=== PATIENT | female | born 1955 | race Caucasian/White ===

== ENCOUNTER 2017-10-14 20:36 | Inpatient (IN) | payer MEDICARE, OTHER ==
[2017-10-14] MEDS ORDERED: ASPIRIN 81 MG PO STA (20:52)
[2017-10-14] MEDS ORDERED: NITROGLYCERIN OINT 1 INCH/GM PACKET TOPICAL STA (20:52)
--- NOTE | 2017-10-14 20:56 | ED ---
General Adult HPI - General Chief complaint: Chest Pain Stated complaint: Chest Pain Time Seen by Provider: 10/14/17 20:48 Source: patient, EMS, RN notes reviewed Mode of arrival: EMS Limitations: no limitations - History of Present Illness Initial comments: Patient is a pleasant 62-year-old female presenting to the emergency department with chest discomfort. Onset was 1-2 hours ago. Discomfort feels like pressure. Discomfort does radiate somewhat towards the back. Patient had similar symptoms a couple of days ago, otherwise no history of similar symptoms previously. No associated dyspnea or nausea or diaphoresis. Discomfort is mild at this point following medication by EMS. - Related Data Home Medications Medication Instructions Recorded Confirmed Cetirizine HCl [Zyrtec] 10 mg PO HS 12/16/13 10/14/17 Allergies Allergy/AdvReac Type Severity Reaction Status Date / Time Penicillins Allergy Anaphylaxis Verified 10/14/17 20:56 aspirin AdvReac Nausea & Verified 10/14/17 20:56 Vomiting bacitracin AdvReac blisters Verified 10/14/17 20:56 [From Neosporin ([id number])] bacitracin zinc AdvReac blisters Verified 10/14/17 20:56 [From Neosporin ([id number])] ketorolac tromethamine AdvReac Nausea & Verified 10/14/17 20:56 [From Toradol] Vomiting neomycin sulfate AdvReac blisters Verified 10/14/17 20:56 [From Neosporin ([id number])] polymyxin B AdvReac blisters Verified 10/14/17 20:56 [From Neosporin ([id number])] Sulfa (Sulfonamide AdvReac localized Verified 10/14/17 20:56 Antibiotics) eye swelling from drops tetanus immune globulin AdvReac localized Verified 10/14/17 20:56 swelling Review of Systems ROS Statement: Those systems with pertinent positive or pertinent negative responses have been documented in the HPI. ROS Other: All systems not noted in ROS Statement are negative. Constitutional: Denies: fever Eyes: Denies: eye pain ENT: Denies: ear pain Respiratory: Denies: cough, dyspnea Cardiovascular: Reports: chest pain Endocrine: Denies: fatigue Gastrointestinal: Denies: abdominal pain Genitourinary: Denies: dysuria Musculoskeletal: Denies: back pain Skin: Denies: rash Neurological: Denies: weakness Past Medical History Past Medical History: Eye Disorder, Hyperlipidemia, Hypertension, Osteoarthritis (OA), Thyroid Disorder Additional Past Medical History / Comment(s): disintegrating joint syndrome, cataracts,complex migraines, seasonal allergies History of Any Multi-Drug Resistant Organisms: None Reported Past Surgical History: Orthopedic Surgery Additional Past Surgical History / Comment(s): ectopic surg., carpal tunnel surg., bilateral knee surg., RT CATARACT REMOVED Past Anesthesia/Blood Transfusion Reactions: No Reported Reaction Past Psychological History: No Psychological Hx Reported Smoking Status: Current every day smoker Past Alcohol Use History: None Reported Past Drug Use History: None Reported - Past Family History Mother Family Medical History: Cancer General Exam Limitations: no limitations General appearance: alert, in no apparent distress Head exam: Present: atraumatic Eye exam: Present: normal appearance, PERRL ENT exam: Present: normal oropharynx Neck exam: Present: normal inspection Respiratory exam: Present: normal lung sounds bilaterally. Absent: chest wall tenderness Cardiovascular Exam: Present: regular rate, normal rhythm Expanded Peripheral pulses: 2+: Radial (R), Radial (L), Dorsalis Pedis (R), Dorsalis Pedis (L) GI/Abdominal exam: Present: soft. Absent: tenderness Extremities exam: Present: normal inspection. Absent: pedal edema, calf tenderness Back exam: Present: normal inspection. Absent: tenderness Neurological exam: Present: alert Psychiatric exam: Present: normal affect, normal mood Skin exam: Present: normal color Course Vital Signs 10/14/17 10/14/17 10/14/17 20:38 21:14 22:00 Temperature 97.8 F Pulse Rate 79 72 67 Respiratory 19 19 16 Rate Blood Pressure 173/79 150/68 155/72 O2 Sat by Pulse 97 97 100 Oximetry 10/14/17 22:32 Temperature Pulse Rate 76 Respiratory 16 Rate Blood Pressure 157/74 O2 Sat by Pulse 99 Oximetry EKG Findings - EKG Comments: EKG Findings:: Normal sinus rhythm 80. FL 170. QRS 98. QT 400. QTc 461. Normal axis. Normal QRS. No acute ST change. Medical Decision Making - Medical Decision Making Patient reevaluated and resting comfortably in bed. Patient is symptom-free at this time. Concern exists regarding elevated troponin. Patient updated on results and plan. Dr. Mcgregor has been paged for admission for Dr. camara. Cardiology will be consult. - Lab Data Result diagrams: 10/14/17 20:44 10/14/17 20:44 Lab Results 10/14/17 10/14/17 10/14/17 Range/Units 20:44 20:44 20:44 WBC 10.3 (3.8-10.6) k/uL RBC 4.58 (3.80-5.40) m/uL Hgb 13.4 (11.4-16.0) gm/dL Hct 40.2 (34.0-46.0) % MCV 87.7 (80.0-100.0) fL MCH 29.2 (25.0-35.0) pg MCHC 33.3 (31.0-37.0) g/dL RDW 13.2 (11.5-15.5) % Plt Count 306 (150-450) k/uL Neutrophils % 55 % Lymphocytes % 36 % Monocytes % 4 % Eosinophils % 3 % Basophils % 1 % Neutrophils # 5.7 (1.3-7.7) k/uL Lymphocytes # 3.8 (1.0-4.8) k/uL Monocytes # 0.4 (0-1.0) k/uL Eosinophils # 0.3 (0-0.7) k/uL Basophils # 0.1 (0-0.2) k/uL PT 9.6 (9.0-12.0) sec INR 1.0 (<1.2) APTT 21.7 L (22.0-30.0) sec D-Dimer 0.50 (<0.60) mg/L FEU Sodium (137-145) mmol/L Potassium (3.5-5.1) mmol/L Chloride (98-107) mmol/L Carbon Dioxide (22-30) mmol/L Anion Gap mmol/L BUN (7-17) mg/dL Creatinine (0.52-1.04) mg/dL Est GFR (CKD-EPI)AfAm (>60 ml/min/1.73 sqM) Est GFR (CKD-EPI)NonAf (>60 ml/min/1.73 sqM) Glucose (74-99) mg/dL Calcium (8.4-10.2) mg/dL Magnesium (1.6-2.3) mg/dL Total Bilirubin (0.2-1.3) mg/dL AST (14-36) U/L ALT (9-52) U/L Alkaline Phosphatase (38-126) U/L Total Creatine Kinase 155 H (30-135) U/L CK-MB (CK-2) 0.8 (0.0-2.4) ng/mL CK-MB (CK-2) Rel Index 0.5 Troponin I 0.068 H* (0.000-0.034) ng/mL Total Protein (6.3-8.2) g/dL Albumin (3.5-5.0) g/dL 10/14/17 Range/Units 20:44 WBC (3.8-10.6) k/uL RBC (3.80-5.40) m/uL Hgb (11.4-16.0) gm/dL Hct (34.0-46.0) % MCV (80.0-100.0) fL MCH (25.0-35.0) pg MCHC (31.0-37.0) g/dL RDW (11.5-15.5) % Plt Count (150-450) k/uL Neutrophils % % Lymphocytes % % Monocytes % % Eosinophils % % Basophils % % Neutrophils # (1.3-7.7) k/uL Lymphocytes # (1.0-4.8) k/uL Monocytes # (0-1.0) k/uL Eosinophils # (0-0.7) k/uL Basophils # (0-0.2) k/uL PT (9.0-12.0) sec INR (<1.2) APTT (22.0-30.0) sec D-Dimer (<0.60) mg/L FEU Sodium 143 (137-145) mmol/L Potassium 3.8 (3.5-5.1) mmol/L Chloride 105 (98-107) mmol/L Carbon Dioxide 25 (22-30) mmol/L Anion Gap 13 mmol/L BUN 18 H (7-17) mg/dL Creatinine 0.90 (0.52-1.04) mg/dL Est GFR (CKD-EPI)AfAm 80 (>60 ml/min/1.73 sqM) Est GFR (CKD-EPI)NonAf 70 (>60 ml/min/1.73 sqM) Glucose 121 H (74-99) mg/dL Calcium 10.0 (8.4-10.2) mg/dL Magnesium 2.1 (1.6-2.3) mg/dL Total Bilirubin 0.3 (0.2-1.3) mg/dL AST 19 (14-36) U/L ALT 17 (9-52) U/L Alkaline Phosphatase 91 (38-126) U/L Total Creatine Kinase (30-135) U/L CK-MB (CK-2) (0.0-2.4) ng/mL CK-MB (CK-2) Rel Index Troponin I (0.000-0.034) ng/mL Total Protein 6.8 (6.3-8.2) g/dL Albumin 4.3 (3.5-5.0) g/dL - Radiology Data Radiology results: image reviewed (Chest x-ray shows no acute process.) Critical Care Time Critical Care Time: Yes Total Critical Care Time: 32 Disposition Clinical Impression: Acute coronary syndrome Disposition: ADMITTED IP TO THIS HOSP Is patient prescribed a controlled substance at d/c from ED?: No Referrals: Kinza Bernal MD [Primary Care Provider] - 1-2 days Decision Time: 23:18
[2017-10-14 21:07] LABS: Basophils # (A) 0.1 k/uL (0-0.2); Basophils % (A) 1 %; Eosinophils # (A) 0.3 k/uL (0-0.7); Eosinophils % (A) 3 %; HCT 40.2 % (34.0-46.0); HGB 13.4 gm/dL (11.4-16.0); Lymphocytes # (A) 3.8 k/uL (1.0-4.8); Lymphocytes % (A) 36 %; MCH 29.2 pg (25.0-35.0); MCHC 33.3 g/dL (31.0-37.0); MCV 87.7 fL (80.0-100.0); Mean Platelet Volume 6.5; Monocytes # (A) 0.4 k/uL (0-1.0); Monocytes % (A) 4 %; Neutrophils # (A) 5.7 k/uL (1.3-7.7); Neutrophils % (A) 55 %; Platelet Count 306 k/uL (150-450); RBC 4.58 m/uL (3.80-5.40); RDW 13.2 % (11.5-15.5); WBC 10.3 k/uL (3.8-10.6)
[2017-10-14 21:12] LABS: Albumin 4.3 g/dL (3.5-5.0); Magnesium 2.1 mg/dL (1.6-2.3); Potassium 3.8 mmol/L (3.5-5.1); Total Bilirubin 0.3 mg/dL (0.2-1.3); Total Protein 6.8 g/dL (6.3-8.2)
--- NOTE | 2017-10-14 21:15 | XR ---
EXAMINATION TYPE: XR chest 2V DATE OF EXAM: 10/14/2017 COMPARISON: NONE HISTORY: Chest pain TECHNIQUE: Frontal and lateral views of the chest are obtained. FINDINGS: Heart and mediastinum are normal. Lungs are clear. Diaphragm is normal. Bony thorax is int act. There are chest leads. IMPRESSION: Normal chest.
[2017-10-14 21:22] LABS: D-Dimer 0.5 mg/L FEU (<0.60); Prothrombin Time 9.6 sec (9.0-12.0)
[2017-10-14 21:26] LABS: Partial Thromboplastin Time 21.7 sec (22.0-30.0)
[2017-10-14 21:27] LABS: Creatine Kinase MB 0.8 ng/mL (0.0-2.4)
[2017-10-14 21:33] LABS: Troponin I 0.068 ng/mL (0.000-0.034)
[2017-10-14] MEDS ORDERED: HEPARIN SODIUM,PORCINE 5,000 UNIT/ML 1 ML VIAL IV ONE (23:19)
[2017-10-14] MEDS ORDERED: HEPARIN SODIUM,PORCINE 5,000 UNIT/ML 1 ML VIAL IV PRN (23:19)
[2017-10-14] MEDS ORDERED: NITROGLYCERIN SL TABS 0.4 MG TAB SUBLINGUAL PRN (23:19)
[2017-10-14] MEDS ORDERED: HEPARIN SOD,PORK IN 0.45% NACL 25,000 UNIT in 0.45% NACL 1 500ML.BAG IV SCH (23:30)
[2017-10-15 02:35] LABS: Mean Platelet Volume 6.8; Platelet Count 252 k/uL (150-450)
[2017-10-15 02:55] LABS: Cholesterol 230 mg/dL (<200); HDL Cholesterol 53 mg/dL (40-60); LDL Cholesterol,Calculated 143 mg/dL (0-99); Triglycerides 169 mg/dL (<150)
[2017-10-15 03:19] LABS: Troponin I 0.102 ng/mL (0.000-0.034)
[2017-10-15] MEDS: NITROGLYCERIN OINT 1 INCH/GM PACKET TOPICAL SCH ×3 (05:05→13:38)
[2017-10-15 06:41] LABS: Creatine Kinase MB 0.9 ng/mL (0.0-2.4)
[2017-10-15 06:46] LABS: Troponin I 0.13 ng/mL (0.000-0.034)
--- NOTE | 2017-10-15 08:53 | P.CRDCN ---
History of Present Illness Consult date: 10/15/17 Requesting physician: Jannet Mcgregor Consult reason: non-Q-wave ME Chief complaint: Chest pain History of present illness: This is a 62-year-old female with history of hyperlipidemia, untreated , hypertension, was on treatment for this prior as well, nicotine dependence, nondiabetic, no family history of premature coronary artery disease, history of ALLERGIES and arthritis. She presents to the hospital with symptoms of chest pressure and heaviness. According to the patient, the night before last she was woke up from sleep with symptoms of chest pressure and heaviness which she described as severe in nature, she thought it may have been something she ate, symptoms subsided. Again the following evening patient developed similar symptoms, she denies any associated dyspnea, no diaphoresis or nausea. This reason she came to the emergency room for further evaluation. Her initial EKG on presentation here showed a normal sinus rhythm with no acute changes. Subsequent EKG shows normal sinus rhythm with ST-T wave changes noted in anterior leads. Blood pressure 130/60 with a heart rate in the 70s, temperature 97.1 she's 96% on room air. White blood cell count 10.3, hemoglobin 13.4, platelet count 252. D-dimer 0.5. Sodium 143, potassium 3.8, BUN 18, creatinine 0.9. Troponin 0.06, 0.10, 0.13. Cholesterol 230, triglycerides 169, LDL 143, HDL 53. At the time of my examination, patient is currently chest pain-free Past Medical History Past Medical History: Eye Disorder, Hyperlipidemia, Hypertension, Osteoarthritis (OA), Thyroid Disorder Additional Past Medical History / Comment(s): disintegrating joint syndrome, cataracts,complex migraines, seasonal allergies History of Any Multi-Drug Resistant Organisms: None Reported Past Surgical History: Orthopedic Surgery Additional Past Surgical History / Comment(s): ectopic surg., carpal tunnel surg., bilateral knee surg., BILATERAL CATARACT REMOVED Past Anesthesia/Blood Transfusion Reactions: No Reported Reaction Past Psychological History: No Psychological Hx Reported Smoking Status: Current every day smoker Past Alcohol Use History: None Reported Past Drug Use History: None Reported - Past Family History Mother Family Medical History: Cancer Medications and Allergies Home Medications Medication Instructions Recorded Confirmed Type Cetirizine HCl [Zyrtec] 10 mg PO HS 06/26/14 04/24/18 History Allergies Allergy/AdvReac Type Severity Reaction Status Date / Time Penicillins Allergy Anaphylaxis Verified 10/14/17 20:56 aspirin AdvReac Nausea & Verified 10/14/17 20:56 Vomiting bacitracin AdvReac blisters Verified 10/14/17 20:56 [From Neosporin ([id number])] bacitracin zinc AdvReac blisters Verified 10/14/17 20:56 [From Neosporin ([id number])] ketorolac tromethamine AdvReac Nausea & Verified 10/14/17 20:56 [From Toradol] Vomiting neomycin sulfate AdvReac blisters Verified 10/14/17 20:56 [From Neosporin ([id number]-jsb-[id number])] polymyxin B AdvReac blisters Verified 10/14/17 20:56 [From Neosporin ([id number]-[id number])] Sulfa (Sulfonamide AdvReac localized Verified 10/14/17 20:56 Antibiotics) eye swelling from drops tetanus immune globulin AdvReac localized Verified 10/14/17 20:56 swelling Physical Exam Vitals: Vital Signs Temp Pulse Pulse Resp BP BP Pulse Ox 10/15/17 04:00 70 16 131/62 96 10/15/17 01:00 70 16 10/15/17 00:20 97.1 F L 66 16 139/63 98 10/14/17 23:00 66 145/66 99 10/14/17 22:32 76 16 157/74 99 10/14/17 22:00 67 16 155/72 100 10/14/17 21:14 72 19 150/68 97 10/14/17 20:38 97.8 F 79 19 173/79 97 Intake and Output 10/14/17 10/15/17 10/15/17 22:59 06:59 14:59 Intake Total 136.833 0 Balance 136.833 0 Intake: Intake, IV Titration 136.833 Amount Heparin Sod,Pork in 0.45% 136.833 NaCl 25,000 unit In 0.45 % NaCl 1 500ml.bag @ 12 UNITS/KG/HR 20.68 mls/hr IV .Q24H YESSENIA Rx#: [id number] Oral 0 Other: Voiding Method Toilet # Voids 1 Weight 86.183 kg 90.1 kg PHYSICAL EXAMINATION: HEENT: [Head is atraumatic, normocephalic. Pupils equal, round. Neck is supple. There is no elevated jugular venous pressure.] HEART EXAMINATION: [Heart S1, S2 normal. No murmur or gallop heard.] CHEST EXAMINATION:[ Lungs are clear to auscultation and precussion. No chest wall tenderness is noted on palpation or with deep breathing.] ABDOMEN: [ Soft, nontender. Bowel sounds are heard. No organomegaly noted]. EXTREMITIES:[ 2+ peripheral pulses with no evidence of peripheral edema and no calf tenderness noted]. NEUROLOGIC [patient is awake, alert and oriented -3.] . Results 10/15/17 02:21 10/14/17 20:44 Cardiac Enzymes 10/14/17 10/14/17 10/15/17 Range/Units 20:44 20:44 02:21 AST 19 (14-36) U/L CK-MB (CK-2) 0.8 1.0 (0.0-2.4) ng/mL Troponin I 0.068 H* 0.102 H* (0.000-0.034) ng/mL 10/15/17 Range/Units 05:38 AST (14-36) U/L CK-MB (CK-2) 0.9 (0.0-2.4) ng/mL Troponin I 0.130 H* (0.000-0.034) ng/mL Coagulation 10/14/17 10/15/17 Range/Units 20:44 05:38 PT 9.6 (9.0-12.0) sec APTT 21.7 L 35.0 H (22.0-30.0) sec Lipids 10/15/17 Range/Units 02:21 Triglycerides 169 H (<150) mg/dL Cholesterol 230 H (<200) mg/dL HDL Cholesterol 53 (40-60) mg/dL CBC 10/14/17 10/15/17 Range/Units 20:44 02:21 WBC 10.3 (3.8-10.6) k/uL RBC 4.58 (3.80-5.40) m/uL Hgb 13.4 (11.4-16.0) gm/dL Hct 40.2 (34.0-46.0) % Plt Count 306 252 (150-450) k/uL Comprehensive Metabolic Panel 10/14/17 Range/Units 20:44 Sodium 143 (137-145) mmol/L Potassium 3.8 (3.5-5.1) mmol/L Chloride 105 (98-107) mmol/L Carbon Dioxide 25 (22-30) mmol/L BUN 18 H (7-17) mg/dL Creatinine 0.90 (0.52-1.04) mg/dL Glucose 121 H (74-99) mg/dL Calcium 10.0 (8.4-10.2) mg/dL AST 19 (14-36) U/L ALT 17 (9-52) U/L Alkaline Phosphatase 91 (38-126) U/L Total Protein 6.8 (6.3-8.2) g/dL Albumin 4.3 (3.5-5.0) g/dL Current Medications Generic Name Dose Route Start Last Admin Trade Name Freq PRN Reason Stop Dose Admin Aspirin 325 mg 10/15/17 09:00 10/15/17 08:32 Aspirin PO 325 mg DAILY YESSENIA Administration Heparin Sodium (Porcine) 0 unit 10/14/17 23:19 10/15/17 06:23 Heparin IV 4,000 unit Q6HR PRN Administration Low PTT Protocol Heparin Sodium/Sodium Chloride 500 mls @ 20.68 mls/hr 10/14/17 23:30 06:23 25,000 unit/ Sodium Chloride IV 15 units/kg/hr .Q24H YESSENIA 25.85 mls/hr Protocol Titration 12 UNITS/KG/HR Nitroglycerin 1 inch 10/15/17 00:00 10/15/17 05:24 Nitro-Bid Oint TOPICAL 1 inch Q6HR YESSENIA Administration Nitroglycerin 0.4 mg 10/14/17 23:19 Nitrostat SUBLINGUAL Q5M PRN Chest Pain Sodium Chloride 10 ml 10/15/17 09:00 10/15/17 08:32 Saline Flush IV 10 ml BID YESSENIA Administration Intake and Output 10/14/17 10/15/17 10/15/17 22:59 06:59 14:59 Intake Total 136.833 0 Balance 136.833 0 Intake: Intake, IV Titration 136.833 Amount Heparin Sod,Pork in 0.45% 136.833 NaCl 25,000 unit In 0.45 % NaCl 1 500ml.bag @ 12 UNITS/KG/HR 20.68 mls/hr IV .Q24H YESSENIA Rx#: [id number] Oral 0 Other: Voiding Method Toilet # Voids 1 Weight 86.183 kg 90.1 kg 10/15/17 02:21 10/14/17 20:44 EKG Interpretations (text) EKG shows a normal sinus rhythm with ST-T wave changes noted in the anterior leads. Assessment and Plan Plan: Assessment and plan #1 chest pressure and heaviness with abnormality in troponin and EKG noted, consistent with acute coronary syndrome. #2 hypertension history, untreated #3 hyperlipidemia, untreated #4 nicotine dependence # 5 seasonal ALLERGIES #6 arthritis Plan We will obtain a stat echocardiogram with Doppler study. We will also continue the patient on IV heparin along with aspirin. We will give the patient 80 mg of Lipitor now and daily. Initiate a small dose of beta laura. Patient has been advised to undergo cardiac catheterization, the risks and the benefits were explained to the patient in detail and she is willing to proceed. Further recommendations will be based on these findings and patient's clinical course. DNP note has been reviewed, I agree with a documented findings and plan of care. Patient was seen and examined.
[2017-10-15] MEDS ORDERED: ASPIRIN 325 MG TAB PO SCH (09:00)
[2017-10-15] MEDS ORDERED: ATORVASTATIN 80 MG TAB PO SCH (09:00)
[2017-10-15] MEDS ORDERED: NITROGLYCERIN SL TABS 0.4 MG TAB SUBLINGUAL PRN ×2 (09:51→16:35)
[2017-10-15] MEDS ORDERED: ASPIRIN 325 MG TAB PO STA (09:51)
[2017-10-15] MEDS ORDERED: SODIUM CHLORIDE 0.9% 1,000 ML in EMPTY BAG 1 BAG IV ONE (09:51)
[2017-10-15] MEDS ORDERED: ALPRAZolam 0.25 MG TAB PO PRN (09:51)
[2017-10-15] MEDS ORDERED: ALPRAZolam 0.5 MG TAB PO PRN (09:51)
[2017-10-15] MEDS ORDERED: ATORVASTATIN 80 MG TAB PO STA (09:51)
--- NOTE | 2017-10-15 09:56 | P.PN ---
Progress Note - Text this is an addendum to the dictated cardiology consultation. The patient presents with symptoms of chest discomfort, left-sided associated with dyspnea. She had 2 episodes 1 yesterday and 1 on the day before. She is not very active physically because of arthritic pain. She has not seen a physician for over 2 years. She has no history of documented coronary artery disease. She has no documented history of diabetes or hyperlipidemia, there is a question of hypertension and she smokes on a daily basis. Her troponin are mildly elevated. Her lung examination reveals mild decrease in the breath sounds but no wheezes, there is no peripheral edema and she is in sinus mechanism. The patient presents with consistent with non-STEMI. I will obtain an echocardiogram with Doppler, add a statin and beta laura. I have recommended to proceed with cardiac catheterization to further assess her status and guide her treatment. The risks and the complications were discussed with the patient and she is in full understanding and agreement. Thank you for this consult we will follow with you.
--- NOTE | 2017-10-15 10:46 | ECHOF ---
Referral Reason:nstemi MEASUREMENTS -------- HEIGHT: 170.2 cm WEIGHT: 89.8 kg BP: IVSd: 1.3 cm (0.6 - 1.1) LVIDd: 4.5 cm (3.9 - 5.3) LVPWd: 1.3 cm (0.6 - 1.1) IVSs: 1.8 cm LVIDs: 2.7 cm LVPWs: 2.0 cm LA Diam: 3.6 cm (2.7 - 3.8) LAESV Index (A-L): 31.85 ml/m Ao Diam: 2.8 cm (2.0 - 3.7) LA Diam: 4.0 cm (2.7 - 3.8) MV EXCURSION: 16.659 mm (> 18.000) MV EF SLOPE: 77 mm/s (70 - 150) EPSS: 0.6 cm MV E Stewart: 0.64 m/s MV DecT: 259 ms MV A Stewart: 0.82 m/s MV E/A Ratio: 0.78 RAP: 5.00 mmHg RVSP: 15.17 mmHg FINDINGS -------- Sinus rhythm. This was a technically adequate study. The left ventricular size is normal. There is mild concentric left ventricular hypertrophy. Overa ll left ventricular systolic function is low-normal with, an EF between 50 - 55 %. The right ventricle is normal in size. The left atrial size is normal. The right atrial size is normal. The aortic valve is trileaflet, and appears structurally normal. No aortic stenosis or regurgitation. Mild mitral annular calcification present. Mild mitral regurgitation is present. Mild tricuspid regurgitation present. There is no evidence of pulmonary hypertension. The right v entricular systolic pressure, as measured by Doppler, is 15.17mmHg. There is no pulmonic regurgitation present. The aortic root size is normal. There is no pericardial effusion. CONCLUSIONS -------- 1. The left ventricular size is normal. 2. There is mild concentric left ventricular hypertrophy. 3. Overall left ventricular systolic function is low-normal with, an EF between 50 - 55 %. 4. The aortic valve is trileaflet, and appears structurally normal. No aortic stenosis or regurgitati on. 5. Mild mitral annular calcification present. 6. Mild mitral regurgitation is present. 7. Mild tricuspid regurgitation present. 8. There is no evidence of pulmonary hypertension. 9. The right ventricular systolic pressure, as measured by Doppler, is 15.17mmHg. 10. There is no pulmonic regurgitation present. 11. The aortic root size is normal. 12. There is no pericardial effusion. CORRECTIONAL TREATMENT SPECIALIST: Patricia Valera RDCS
[2017-10-15] MEDS ORDERED: ONDANSETRON 4 MG/2 ML VIAL IVP PRN (11:27)
[2017-10-15] MEDS: METOPROLOL TARTRATE 25 MG TAB PO SCH ×2 (12:06→20:57)
--- NOTE | 2017-10-15 13:16 | P.HPIM ---
History of Present Illness H&P Date: 10/15/17 Chief Complaint: Chest pain This is a 62-year-old female with past medical history significant for untreated hypertension who presented to the emergency room with chest pain. Patient said that her symptoms started and describes it as pressure in the middle of her chest. She said her pain was severe and rated 10 out of 10 in severity. There was no radiation. Patient denies shortness of breath, diaphoresis, or nausea. She presented to the emergency room for further evaluation. Initial 12-lead EKG was normal but subsequent EKGs showed nonspecific ST segment changes. No acute ischemic changes noted. Troponin peaked to 0.13. Patient is currently admitted to the hospital. She was seen by cardiology. She is on IV heparin and was started on optimal medical management. Review of Systems Review of system: 14 points review of systems were obtained and were negative except to what were mentioned in the HPI. Past Medical History Past Medical History: Eye Disorder, Hyperlipidemia, Hypertension, Osteoarthritis (OA), Thyroid Disorder Additional Past Medical History / Comment(s): disintegrating joint syndrome, cataracts,complex migraines, seasonal allergies History of Any Multi-Drug Resistant Organisms: None Reported Past Surgical History: Orthopedic Surgery Additional Past Surgical History / Comment(s): ectopic surg., carpal tunnel surg., bilateral knee surg., BILATERAL CATARACT REMOVED Past Anesthesia/Blood Transfusion Reactions: No Reported Reaction Past Psychological History: No Psychological Hx Reported Smoking Status: Current every day smoker Past Alcohol Use History: None Reported Past Drug Use History: None Reported - Past Family History Mother Family Medical History: Cancer Medications and Allergies Home Medications Medication Instructions Recorded Confirmed Type Cetirizine HCl [Zyrtec] 10 mg PO HS 12/16/13 10/14/17 History Allergies Allergy/AdvReac Type Severity Reaction Status Date / Time Penicillins Allergy Anaphylaxis Verified 10/14/17 20:56 aspirin AdvReac Nausea & Verified 10/14/17 20:56 Vomiting bacitracin AdvReac blisters Verified 10/14/17 20:56 [From Neosporin ([id number])] bacitracin zinc AdvReac blisters Verified 10/14/17 20:56 [From Neosporin ([id number])] ketorolac tromethamine AdvReac Nausea & Verified 10/14/17 20:56 [From Toradol] Vomiting neomycin sulfate AdvReac blisters Verified 10/14/17 20:56 [From Neosporin ([id number])] polymyxin B AdvReac blisters Verified 10/14/17 20:56 [From Neosporin ([id number])] Sulfa (Sulfonamide AdvReac localized Verified 10/14/17 20:56 Antibiotics) eye swelling from drops tetanus immune globulin AdvReac localized Verified 10/14/17 20:56 swelling Physical Exam Vitals: Vital Signs Temp Pulse Pulse Resp BP BP Pulse Ox 10/15/17 11:52 97.8 F 71 18 133/71 97 10/15/17 08:00 97.6 F 69 16 141/74 96 10/15/17 04:00 70 16 131/62 96 10/15/17 01:00 70 16 10/15/17 00:20 97.1 F L 66 16 139/63 98 10/14/17 23:00 66 145/66 99 10/14/17 22:32 76 16 157/74 99 10/14/17 22:00 67 16 155/72 100 10/14/17 21:14 72 19 150/68 97 10/14/17 20:38 97.8 F 79 19 173/79 97 Intake and Output 10/14/17 10/15/17 10/15/17 22:59 06:59 14:59 Intake Total 136.833 0 Balance 136.833 0 Intake: Intake, IV Titration 136.833 Amount Heparin Sod,Pork in 0.45% 136.833 NaCl 25,000 unit In 0.45 % NaCl 1 500ml.bag @ 12 UNITS/KG/HR 20.68 mls/hr IV .Q24H [facility] Rx#: [id number] Oral 0 Other: Voiding Method Toilet # Voids 1 Weight 86.183 kg 90.1 kg General: The patient is awake and alert, in no distress Eye: there is normal conjunctiva bilaterally. Neck: The neck is supple, there is no JVD. Cardiovascular: Normal S1-S2, no S3-S4, no murmurs. Respiratory: Lungs clear to auscultation bilaterally Gastrointestinal: Abdomen is soft, nontender Musculoskeletal: There is no pedal edema. Neurological:. Speech is normal. Skin: Skin is warm and dry Results CBC & Chem 7: 10/15/17 02:21 10/14/17 20:44 Labs: Abnormal Lab Results - Last 24 Hours (Table) 10/14/17 10/14/17 10/14/17 Range/Units 20:44 20:44 20:44 APTT 21.7 L (22.0-30.0) sec BUN 18 H (7-17) mg/dL Glucose 121 H (74-99) mg/dL Total Creatine Kinase 155 H (30-135) U/L Troponin I 0.068 H* (0.000-0.034) ng/mL Triglycerides (<150) mg/dL Cholesterol (<200) mg/dL LDL Cholesterol, Calc (0-99) mg/dL 10/15/17 10/15/17 10/15/17 Range/Units 02:21 02:21 05:38 APTT 35.0 H (22.0-30.0) sec BUN (7-17) mg/dL Glucose (74-99) mg/dL Total Creatine Kinase (30-135) U/L Troponin I 0.102 H* (0.000-0.034) ng/mL Triglycerides 169 H (<150) mg/dL Cholesterol 230 H (<200) mg/dL LDL Cholesterol, Calc 143 H (0-99) mg/dL 10/15/17 10/15/17 Range/Units 05:38 11:26 APTT 73.9 H (22.0-30.0) sec BUN (7-17) mg/dL Glucose (74-99) mg/dL Total Creatine Kinase (30-135) U/L Troponin I 0.130 H* (0.000-0.034) ng/mL Triglycerides (<150) mg/dL Cholesterol (<200) mg/dL LDL Cholesterol, Calc (0-99) mg/dL Thrombosis Risk Factor Assmnt - Choose All That Apply Each Factor Represents 1 point: Obesity (BMI >25) Each Risk Factor Represents 2 Points: Age 61-74 years Thrombosis Risk Factor Assessment Total Risk Factor Score: 3 Thrombosis Risk Factor Assessment Level: Moderate Risk Assessment and Plan Assessment: 1. Acute non-ST elevation LA: continue optimal medical management. IV heparin. Seen by cardiology. Plan for left heart catheterization. Echocardiogram showed preserved EF of 55%. No significant valvular abnormalities. 2. Mixed hyperlipidemia, and started on Lipitor 80 mg daily 3. Essential hypertension, blood pressure within acceptable range. We'll continue to monitor closely 4. Tobacco abuse: Counseled extensively to quit patient verbalized understanding.
[2017-10-15] MEDS ORDERED: VERAPAMIL 2.5 MG/ML 2 ML AMP ONE ×2 (13:38→15:31)
[2017-10-15] MEDS ORDERED: LIDOCAINE 2% INJ 20 MG/ML (20 ML MDV) ONE (13:39)
[2017-10-15] MEDS ORDERED: fentaNYL (PF) 50 MCG/ML 2 ML AMP ONE (13:48)
[2017-10-15] MEDS ORDERED: SODIUM CHLORIDE 0.9% 500 ML IV ONE (13:49)
[2017-10-15] MEDS ORDERED: IV FLUID CONTINUATION 1,000 ML IV ONE (15:34)
[2017-10-15] MEDS ORDERED: fentaNYL (PF) 50 MCG/ML 2 ML AMP IV ONE (15:48)
[2017-10-15] MEDS ORDERED: LIDOCAINE 2% INJ 20 MG/ML SQ ONE (15:50)
[2017-10-15] MEDS ORDERED: MIDAZOLAM 2 MG/2 ML VIAL ONE (15:51)
[2017-10-15] MEDS ORDERED: MIDAZOLAM 2 MG/2 ML VIAL IV ONE (15:52)
[2017-10-15] MEDS ORDERED: VERAPAMIL SYRINGE (5 MG/10 ML) INTRAARTER ONE (15:56)
[2017-10-15] MEDS ORDERED: BIVALIRUDIN BOLUS 250 MG/50 ML IV ONE ×2 (16:04→16:05)
[2017-10-15] MEDS ORDERED: PRASUGREL 10 MG TAB ONE (16:05)
[2017-10-15] MEDS ORDERED: BIVALIRUDIN 250 MG in SODIUM CHLORIDE 0.9% 50 ML IV ONE ×4 (16:06)
[2017-10-15] MEDS ORDERED: NITROGLYCERIN 1000MCG/10ML SYRINGE INTRACORON ONE (16:08)
[2017-10-15] MEDS ORDERED: MORPHINE SULF 5MG/10ML VL IV ONE (16:10)
[2017-10-15] MEDS ORDERED: PRASUGREL 10 MG TAB PO ONE (16:11)
[2017-10-15] MEDS ORDERED: IOPAMIDOL-370 125ML BTL INJ ONE (16:17)
[2017-10-15] MEDS ORDERED: IOPAMIDOL-370 100ML BTL INJ ONE (16:23)
[2017-10-15] MEDS ORDERED: ZOLPIDEM 5 MG TAB PO PRN (16:35)
[2017-10-15] MEDS ORDERED: ATROPINE SULFATE 0.1 MG/ML 10ML SYRINGE IV PRN (16:35)
[2017-10-15] MEDS ORDERED: MAG HYDROX/AL HYDROX/SIMETH 30 ML CUP PO PRN (16:35)
[2017-10-15] MEDS ORDERED: RX INFO: IV CONTRAST WAS GIVEN 1 EACH MISC MISCELLANE PRN (16:35)
[2017-10-15] MEDS ORDERED: SODIUM CHLORIDE 0.9% 1,000 ML IV SCH (16:45)
--- NOTE | 2017-10-15 19:57 | CC ---
CARDIAC CATHETERIZATION REPORT Ms. Villa is a 62-year-old female with known history of chronic tobacco use, who presented with symptoms of chest discomfort. She had mild elevation of the troponin. Because of her presentation and persistent symptoms, recommendation made regarding cardiac catheterization. The procedures, risks and complications were discussed with the patient who is in full understanding and agreement. DESCRIPTION OF PROCEDURE: Patient was brought to slab conditioner supervisor in the fasting semi-sedated state after receiving fentanyl and Benadryl and achieving moderate conscious sedated state. Using Xylocaine anesthesia and Seldinger technique, a 6-Kyrgyz sheath was introduced in the right radial artery. Selective right and left coronary angiography was performed using 5- Kyrgyz 3 and half bend right and left Familia catheter. Multiple views of the coronary arteries including hemiaxial views were obtained. Following that, angioplasty and stenting was performed. Following that 5-Kyrgyz tight pigtail catheter was introduced into the left ventricle and a 30 degree BRAY view of the left ventricle was obtained. Following that, the catheter and sheaths were removed. Hemostasis was obtained with deployment of a TR band. There was no immediate complication. Patient was returned to her room in stable condition. Of note, the patient received Angiomax per protocol as well as oral loading dose of Effient at the start of the angioplasty in addition to intra-arterial verapamil. FINDINGS: 1. Left main: This is a short size vessel bifurcating into left circumflex, left anterior descending artery, left main coronary artery has no evidence of high-grade stenosis. 2. Left anterior descending artery: This is a large-sized vessel reaching to the apex with a wraparound apex segment. The mid segment of the LAD has a 40% plaque. The rest of the vessel has no high-grade stenosis. 3. Left circumflex: This is a large dominant vessel giving rise to a proximal moderately-sized obtuse marginal branch distally, bifurcating into the PDA and posterolateral segment and branches. The PLV has a 99% stenosis. The rest of the vessel has no high-grade stenosis. 4. Right coronary artery disease, small nondominant vessel that has no evidence of high-grade stenosis. 5. Ventriculogram: Left ventriculogram was performed in 30 degree BRAY view and revealed a mild inferobasal hypokinesis. Ejection fraction 50% to 55%. There was no significant mitral regurgitation. HEMODYNAMICS: There was no gradient across the aortic valve. The left ventricle end-diastolic pressure was 16-20 mmHg. CONCLUSION: 1. Critical stenosis involving the left PLV. 2. Moderate disease in the mid LAD. 3. Minimally impaired left ventricular systolic function. RECOMMENDATION: In view of findings and anatomy, I recommend proceeding with angioplasty and stenting of the left PLV. The procedures as well as risks and complications were discussed with the patient who is in full understanding and agreement. NEO / HEATHER: [id number] /
--- NOTE | 2017-10-15 20:06 | CC ---
CARDIAC CATHETERIZATION REPORT Ms. Villa is a 62-year-old female who presented with a non-STEMI and underwent cardiac catheterization, was found to have critical stenosis involving the left PLV. In view of that, recommendations were made regarding angioplasty and stenting. The procedures, risks, benefits and complication were discussed with the patient, who was in full understanding and agreement. PROCEDURE: A 6-Maori FL 3.5 guiding catheter introduced in the system. After cannulating the left main, a 0.014 advanced medium weight J-wire was advanced across the lesion and positioned distally. Then a 2.25 x 12-mm Trek balloon was advanced and 1 inflation at 8 atmospheres was done from that. Balloon was removed and a 2.25 x 12-mm Xience Alpine stent was deployed, postdilated at 16 atmospheres. After the last inflation after appropriate wait, the balloon and the guidewire were withdrawn back in the guiding catheter. Images were obtained and repeated. Those images reveal stable successful stenting. At that point, the guiding catheter, the balloon and the guidewire were removed left ventriculogram was performed. Following that, the sheaths were removed. Hemostasis was obtained with deployment of the TR band. There was no immediate complication. Patient was returned to her room in stable condition. Of note, the patient had no chest discomfort or significant EKG changes with the inflations. RESULTS: Successful stenting of the left PLD with reduction of stenosis from 99% to 0%. RECOMMENDATION: The patient will be continued on aspirin, Effient, beta laura, LISA inhibitor and statin. The importance of dual antiplatelet treatment was discussed with the patient and her family, who are in full understanding and agreement. DURATION OF PROCEDURES: 39 minutes. MMODL / IJN: [id number] /
[2017-10-15] MEDS ORDERED: CETIRIZINE 10 MG PO SCH (21:00)
[2017-10-15 21:29] VITALS: RESP 16
[2017-10-16 06:35] LABS: Basophils # (A) 0.1 k/uL (0-0.2); Basophils % (A) 1 %; Eosinophils # (A) 0.2 k/uL (0-0.7); Eosinophils % (A) 3 %; HCT 37.1 % (34.0-46.0); HGB 12.3 gm/dL (11.4-16.0); Lymphocytes % (A) 36 %; MCH 29.6 pg (25.0-35.0); MCHC 33.1 g/dL (31.0-37.0); MCV 89.3 fL (80.0-100.0); Mean Platelet Volume 6.4; Monocytes # (A) 0.3 k/uL (0-1.0); Monocytes % (A) 3 %; Neutrophils # (A) 4.5 k/uL (1.3-7.7); Neutrophils % (A) 54 %; Platelet Count 257 k/uL (150-450); RBC 4.16 m/uL (3.80-5.40); RDW 13.3 % (11.5-15.5); WBC 8.3 k/uL (3.8-10.6)
[2017-10-16 06:46] LABS: Calcium 9.6 mg/dL (8.4-10.2); Potassium 4.3 mmol/L (3.5-5.1)
--- NOTE | 2017-10-16 07:54 | PN ---
PROGRESS NOTE Mrs. Villa is a 62-year-old female who presented with non ST-segment elevation myocardial infarction, underwent cardiac catheterization yesterday, was found to have obstructive disease involving the left PLV, underwent stenting of that vessel. She is doing well this morning. Her breathing has been stable. She denies any symptoms of chest pain. She has been ambulating without difficulty. No dizziness. No palpitation. She continued to be on aspirin once a day, Lipitor 80 mg daily, metoprolol tartrate 25 mg twice a day, lisinopril 5 mg daily, and Effient 10 mg daily. PHYSICAL EXAMINATION: Blood pressure 129/50 with the heart rate in the 60s. LUNGS: Clear. HEART: Regular rate and rhythm/ S1, S2. No S3. No rub. ABDOMEN: Soft, nontender. EXTREMITIES: No edema. Right radial pulse intact. EKG revealed minimal T-wave inversion inferiorly in lead III. LAB DATA: Lab data revealed BUN and creatinine 14 and 0.9, potassium 4.3, hemoglobin 12.3. IMPRESSION: 1. Status post non ST-segment elevation myocardial infarction and stenting of the left PLV. 2. Chronic tobacco use. RECOMMENDATION: Patient should be able to be discharged home today and followed as an outpatient. The importance of smoking cessation was discussed with her. MMODL / IJN: [id number] /
[2017-10-16 08:32] VITALS: TEMP 98.4
[2017-10-16] MEDS: METOPROLOL TARTRATE 25 MG TAB PO SCH (08:37)
[2017-10-16] MEDS ORDERED: ASPIRIN 81 MG PO SCH ×2 (09:00)
[2017-10-16] MEDS ORDERED: ATORVASTATIN 80 MG TAB PO SCH (09:00)
[2017-10-16] MEDS ORDERED: LISINOPRIL 5 MG TAB PO SCH (09:00)
[2017-10-16 09:56] VITALS: BMI 31.6
[2017-10-16 11:00] VITALS: BP 136/63; PULSE 61
[2017-10-16] MEDS ORDERED: PRASUGREL 10 MG TAB PO SCH (12:00)
--- NOTE | 2017-10-16 12:49 | P.DS ---
Providers Date of admission: 10/14/17 23:19 Expected date of discharge: 10/16/17 Attending physician: Jannet Mcgregor Consults: 10/14/17 23:19 Consult Physician Urgent Consulting Provider: Zoraida Tucker Consult Reason/Comments: acs Do you want consulting provider notified?: Yes 10/15/17 16:35 Consult Physician Routine Consulting Provider: [facility] Consult Reason/Comments: Post Interventional patient Do you want consulting provider notified?: Already Contacted Primary care physician: Kinza Bernal [facility] Course: 1. Acute non-ST elevation [place]: Status post left heart catheterization with successful stent placement to the left PLV. Echocardiogram showed preserved EF of 55%. No significant valvular abnormalities. Continue optimal medical management. Follow-up with cardiology as directed. 2. Mixed hyperlipidemia, and started on Lipitor 80 mg daily 3. Essential hypertension, blood pressure within acceptable range. 4. Tobacco abuse: Counseled extensively to quit patient verbalized understanding. Plan - Discharge Summary Discharge Rx Participant: Yes New Discharge Prescriptions: New Aspirin 81 mg PO DAILY chew Atorvastatin [Lipitor] 80 mg PO DAILY #90 tab Lisinopril [Zestril] 5 mg PO DAILY #90 tab Metoprolol Tartrate [Lopressor] 25 mg PO BID #180 tab Nitroglycerin Sl Tabs [Nitrostat] 0.4 mg SUBLINGUAL Q5M PRN #25 tab PRN Reason: Chest Pain Prasugrel [Effient] 10 mg PO DAILY #90 tab No Action Cetirizine HCl [Zyrtec] 10 mg PO HS Discharge Medication List Cetirizine HCl [Zyrtec] 10 mg PO HS 12/16/13 [History] Aspirin 81 mg PO DAILY chew 10/16/17 [Rx] Atorvastatin [Lipitor] 80 mg PO DAILY #90 tab 10/16/17 [Rx] Lisinopril [Zestril] 5 mg PO DAILY #90 tab 10/16/17 [Rx] Metoprolol Tartrate [Lopressor] 25 mg PO BID #180 tab 10/16/17 [Rx] Nitroglycerin Sl Tabs [Nitrostat] 0.4 mg SUBLINGUAL Q5M PRN #25 tab 10/16/17 [Rx ] Prasugrel [Effient] 10 mg PO DAILY #90 tab 10/16/17 [Rx] Follow up Appointment(s)/Referral(s): Zoraida Tucker MD [STAFF PHYSICIAN] - 10/24/17 11:30 am (Friday) Kinza Bernal MD [Primary Care Provider] - 10/22/17 2:30 pm (Friday) Patient Instructions/Handouts: *Surgery [facility] - After Heart Catheterization - Community Development Director Instructions, Heart Healthy Diet (DC)
== END 2017-10-16 14:15 | disposition home or self-care (01) | DRG 247 ==
LOC: EC 20:36 → 6SEL 23:19
PROVIDERS: ADMIT Internal Medicine; ATTEND Internal Medicine
PROC: B2111ZZ Fluoroscopy of Multiple Coronary Arteries using Low Osmolar Contrast (ICD-10-PCS; 2017-10-15)
PROC: B2151ZZ Fluoroscopy of Left Heart using Low Osmolar Contrast (ICD-10-PCS; 2017-10-15)
PROC: 4A023N7 Measurement of Cardiac Sampling and Pressure, Left Heart, Percutaneous Approach (ICD-10-PCS; principal; 2017-10-15 13:30)
PROC: 027034Z Dilation of Coronary Artery, One Artery with Drug-eluting Intraluminal Device, Percutaneous Approach (ICD-10-PCS; 2017-10-15 15:28)
DX: I21.4 Non-ST elevation (NSTEMI) myocardial infarction (principal); E07.9 Disorder of thyroid, unspecified; E66.9 Obesity, unspecified; E78.2 Mixed hyperlipidemia; I10 Essential (primary) hypertension; M19.90 Unspecified osteoarthritis, unspecified site; I25.10 Atherosclerotic heart disease of native coronary artery without angina pectoris; R29.700 NIHSS score 0; G43.909 Migraine, unspecified, not intractable, without status migrainosus; F17.200 Nicotine dependence, unspecified, uncomplicated; J30.2 Other seasonal allergic rhinitis; Z98.41 Cataract extraction status, right eye; Z98.42 Cataract extraction status, left eye; Z79.899 Other long term (current) drug therapy; Z88.0 Allergy status to penicillin; Z88.2 Allergy status to sulfonamides; Z88.8 Allergy status to other drugs, medicaments and biological substances; Z86.69 Personal history of other diseases of the nervous system and sense organs; Z68.31 Body mass index [BMI] 31.0-31.9, adult; Z71.6 Tobacco abuse counseling
CPT/HCPCS: 36415; 71046; 80048; 80053; 80061; 82550; 82553; 83735; 84484; 85025; 85049; 85379; 85610; 85730; 93005; 93306; 93458; 96374; 99291

== ENCOUNTER 2018-10-30 20:02 | Inpatient (IN) | payer MEDICARE ==
[2018-10-30 20:36] LABS: Basophils # (A) 0.1 k/uL (0-0.2); Basophils % (A) 1 %; Eosinophils # (A) 0.3 k/uL (0-0.7); Eosinophils % (A) 3 %; HCT 43.5 % (34.0-46.0); HGB 13.7 gm/dL (11.4-16.0); Lymphocytes # (A) 3.5 k/uL (1.0-4.8); Lymphocytes % (A) 33 %; MCH 28.6 pg (25.0-35.0); MCHC 31.6 g/dL (31.0-37.0); MCV 90.6 fL (80.0-100.0); Mean Platelet Volume 6.9; Monocytes # (A) 0.3 k/uL (0-1.0); Monocytes % (A) 3 %; Neutrophils # (A) 6.2 k/uL (1.3-7.7); Neutrophils % (A) 58 %; Platelet Count 303 k/uL (150-450); RBC 4.81 m/uL (3.80-5.40); RDW 14.3 % (11.5-15.5); WBC 10.7 k/uL (3.8-10.6)
--- NOTE | 2018-10-30 20:38 | XR ---
EXAMINATION TYPE: XR chest 2V DATE OF EXAM: 10/30/2018 COMPARISON: 10/14/2017 HISTORY: Chest pain TECHNIQUE: Frontal and lateral views of the chest are obtained. FINDINGS: Heart and mediastinum are normal. Lungs are clear. Diaphragm is normal. There are chest le ads. Bony thorax appears normal. IMPRESSION: Normal chest. No change.
[2018-10-30 20:43] LABS: INR 0.8 (<1.2); Partial Thromboplastin Time 23.2 sec (22.0-30.0); Prothrombin Time 9.4 sec (9.0-12.0)
[2018-10-30 21:00] LABS: Albumin 4.6 g/dL (3.5-5.0); Calcium 10.6 mg/dL (8.4-10.2); Potassium 4.2 mmol/L (3.5-5.1); Total Bilirubin 0.4 mg/dL (0.2-1.3); Total Protein 7.4 g/dL (6.3-8.2)
--- NOTE | 2018-10-30 21:42 | ED ---
Chest Pain HPI - General Chief Complaint: Chest Pain Stated Complaint: Chest pain H/O attack x2 Time Seen by Provider: 10/30/18 20:10 Source: patient, RN notes reviewed, old records reviewed Mode of arrival: wheelchair Limitations: no limitations - History of Present Illness MD Complaint: chest pain -: hour(s) Onset: during rest Pain Location: left chest Severity: mild Severity scale (1-10): 3 Quality: tightness, heaviness Consistency: constant Improves With: nothing Worsens With: nothing Other Symptoms: palpitations Treatments Prior to Arrival: none - Related Data Home Medications Medication Instructions Recorded Confirmed Cetirizine HCl [Zyrtec] 10 mg PO HS 12/16/13 10/30/18 Previous Rx's Medication Instructions Recorded Aspirin 81 mg PO DAILY chew 10/16/17 Allergies Allergy/AdvReac Type Severity Reaction Status Date / Time Penicillins Allergy Anaphylaxis Verified 10/30/18 21:16 aspirin AdvReac Nausea & Verified 10/30/18 21:16 Vomiting bacitracin AdvReac blisters Verified 10/30/18 21:16 [From Neosporin ([id number])] bacitracin zinc AdvReac blisters Verified 10/30/18 21:16 [From Neosporin ([id number])] ketorolac tromethamine AdvReac Nausea & Verified 10/30/18 21:16 [From Toradol] Vomiting neomycin sulfate AdvReac blisters Verified 10/30/18 21:16 [From Neosporin ([id number])] polymyxin B AdvReac blisters Verified 10/30/18 21:16 [From Neosporin ([id number])] Sulfa (Sulfonamide AdvReac localized Verified 10/30/18 21:16 Antibiotics) eye swelling from drops tetanus immune globulin AdvReac localized Verified 10/30/18 21:16 swelling Review of Systems ROS Statement: Those systems with pertinent positive or pertinent negative responses have been documented in the HPI. ROS Other: All systems not noted in ROS Statement are negative. EKG Findings - EKG Comments: EKG Findings:: EKG shows sinus rhythm rate of 85, [place] 140, QRS 94, QTc 468 Past Medical History Past Medical History: Eye Disorder, Hyperlipidemia, Hypertension, Myocardial Infarction (non Q-wave), Osteoarthritis (OA), Thyroid Disorder Additional Past Medical History / Comment(s): disintegrating joint syndrome, cataracts,complex migraines, seasonal allergies History of Any Multi-Drug Resistant Organisms: None Reported Past Surgical History: Heart Catheterization With Stent, Orthopedic Surgery Additional Past Surgical History / Comment(s): ectopic surg., carpal tunnel surg., bilateral knee surg., BILATERAL CATARACT REMOVED Past Anesthesia/Blood Transfusion Reactions: No Reported Reaction Past Psychological History: No Psychological Hx Reported Smoking Status: Current every day smoker Past Alcohol Use History: None Reported Past Drug Use History: None Reported - Past Family History Mother Family Medical History: Cancer General Exam Limitations: no limitations General appearance: alert, in no apparent distress Head exam: Present: atraumatic, normocephalic, normal inspection Eye exam: Present: normal appearance, PERRL, EOMI. Absent: scleral icterus, conjunctival injection, periorbital swelling ENT exam: Present: normal exam, mucous membranes moist Neck exam: Present: normal inspection. Absent: tenderness, meningismus, lymphadenopathy Respiratory exam: Present: normal lung sounds bilaterally. Absent: respiratory distress, wheezes, rales, rhonchi, stridor Cardiovascular Exam: Present: regular rate, normal rhythm, normal heart sounds. Absent: systolic murmur, diastolic murmur, rubs, gallop, clicks GI/Abdominal exam: Present: soft, normal bowel sounds. Absent: distended, tenderness, guarding, rebound, rigid Extremities exam: Present: normal inspection, full ROM, normal capillary refill. Absent: tenderness, pedal edema, joint swelling, calf tenderness Back exam: Present: normal inspection Neurological exam: Present: alert, oriented X3, CN II-XII intact Psychiatric exam: Present: normal affect, normal mood Skin exam: Present: warm, dry, intact, normal color. Absent: rash Course Vital Signs 10/30/18 20:04 Temperature 98.4 F Pulse Rate 96 Respiratory 18 Rate Blood Pressure 113/80 O2 Sat by Pulse 97 Oximetry Critical Care Time Critical Care Time: Yes Total Critical Care Time: 31 Disposition Clinical Impression: Chest pain Disposition: ADMITTED IP TO THIS HOSP Condition: Undetermined Instructions (If sedation given, give patient instructions): Chest Pain (ED) Is patient prescribed a controlled substance at d/c from ED?: No Referrals: Kinza Bernal MD [Primary Care Provider] - 1-2 days
[2018-10-30] MEDS ORDERED: HEPARIN SODIUM,PORCINE 5,000 UNIT/ML 1 ML VIAL IV PRN (22:16)
[2018-10-30] MEDS ORDERED: NITROGLYCERIN SL TABS 0.4 MG TAB SUBLINGUAL PRN (22:16)
[2018-10-30] MEDS ORDERED: ASPIRIN 81 MG PO STA (22:16)
[2018-10-30] MEDS ORDERED: HEPARIN SODIUM,PORCINE 5,000 UNIT/ML 1 ML VIAL IV ONE (22:16)
[2018-10-30] MEDS: HEPARIN SOD,PORK IN 0.45% NACL 25,000 UNIT in 0.45% NACL 1 250ML.BAG IV SCH (22:55)
[2018-10-31 02:31] LABS: Mean Platelet Volume 6.8; Platelet Count 273 k/uL (150-450)
[2018-10-31 02:50] LABS: Cholesterol 259 mg/dL (<200); HDL Cholesterol 50 mg/dL (40-60); LDL Cholesterol,Calculated 173 mg/dL (0-99); Triglycerides 182 mg/dL (<150)
[2018-10-31] MEDS ORDERED: ALPRAZolam 0.5 MG TAB PO PRN (08:35)
[2018-10-31] MEDS ORDERED: NITROGLYCERIN SL TABS 0.4 MG TAB SUBLINGUAL PRN (08:35)
[2018-10-31] MEDS ORDERED: ATORVASTATIN 80 MG TAB PO STA (08:35)
[2018-10-31] MEDS ORDERED: ALPRAZolam 0.25 MG TAB PO PRN (08:35)
[2018-10-31] MEDS ORDERED: SODIUM CHLORIDE 0.9% 1,000 ML in EMPTY BAG 1 BAG IV ONE (08:35)
[2018-10-31] MEDS: ASPIRIN 325 MG TAB PO SCH (08:38)
[2018-10-31] MEDS: ATORVASTATIN 80 MG TAB PO SCH (08:38)
--- NOTE | 2018-10-31 08:39 | P.CRDCN ---
History of Present Illness Consult date: 10/31/18 Chief complaint: Chest pain History of present illness: This is a pleasant 63-year-old female patient with a past medical history significant for coronary artery disease and prior stenting of the PLV branch of the right coronary artery in September 2017, hypertension, and dyslipidemia, presented to the emergency room complaining of chest discomfort. She was in her usual state of health yesterday when she was sitting home and suddenly started experiencing discomfort in the mid of the chest, as a pressure on the chest, without any radiation to the arm or neck or shoulders and without any associated symptoms of shortness of breath, sweating, dizziness, or syncope. Her daughter drove her to the hospital. In the ER the EKG showed sinus rhythm without any ischemic ST or T-wave abnormalities but nonspecific changes. The first set of enzymes came in to be normal but the second 2 sets of enzymes came in to be abnormal and consistent with acute non-ST elevation NC. Reviewing the patient's blood pressure medications, indicated that the only medication she was taking at home was aspirin. She is not on any metoprolol nor statin and when I asked her why she stated that she cannot afford taking the medications. I did advise the patient to undergo coronary angiogram. Also I am going to obtain an echocardiogram was Doppler. Meanwhile I will continue the patient on the current medical regimen including aspirin, heparin IV, and she was already started on statin which we will continue. We'll continue following up with her. Past Medical History Past Medical History: Eye Disorder, Hyperlipidemia, Hypertension, Myocardial Infarction (non Q-wave), Osteoarthritis (OA), Thyroid Disorder Additional Past Medical History / Comment(s): disintegrating joint syndrome, cataracts,complex migraines, seasonal allergies. [place] x2 Last Myocardial Infarction Date:: 10-08 History of Any Multi-Drug Resistant Organisms: None Reported Past Surgical History: Heart Catheterization With Stent, Orthopedic Surgery Additional Past Surgical History / Comment(s): ectopic surg., carpal tunnel surg., bilateral knee surg., BILATERAL CATARACT REMOVED Past Anesthesia/Blood Transfusion Reactions: No Reported Reaction Date of Last Stent Placement:: 10-08 Smoking Status: Current every day smoker - Past Family History Mother Family Medical History: Cancer Medications and Allergies Home Medications Medication Instructions Recorded Confirmed Type Cetirizine HCl [Zyrtec] 10 mg PO HS 12/16/13 10/30/18 History Aspirin 81 mg PO DAILY chew 10/16/17 10/30/18 Rx Allergies Allergy/AdvReac Type Severity Reaction Status Date / Time Penicillins Allergy Anaphylaxis Verified 10/30/18 23:22 bacitracin AdvReac blisters Verified 10/30/18 23:22 [From Neosporin ([id number])] bacitracin zinc AdvReac blisters Verified 10/30/18 23:22 [From Neosporin ([id number])] ketorolac tromethamine AdvReac Nausea & Verified 10/30/18 23:22 [From Toradol] Vomiting neomycin sulfate AdvReac blisters Verified 10/30/18 23:22 [From Neosporin ([id number])] polymyxin B AdvReac blisters Verified 10/30/18 23:22 [From Neosporin ([id number])] Sulfa (Sulfonamide AdvReac localized Verified 10/30/18 23:22 Antibiotics) eye swelling from drops tetanus immune globulin AdvReac localized Verified 10/30/18 23:22 swelling Physical Exam Vitals: Vital Signs Temp Pulse Pulse Resp BP BP Pulse Ox 10/31/18 08:00 98.0 F 69 16 126/67 96 10/31/18 03:22 18 10/31/18 03:08 97.9 F 79 18 121/65 93 L 10/31/18 00:00 18 10/30/18 23:19 97.5 F L 77 18 148/80 99 10/30/18 22:50 97.1 F L 73 16 136/72 97 10/30/18 22:30 73 13 125/53 10/30/18 22:10 80 31 H 145/73 96 10/30/18 21:50 78 14 140/72 97 10/30/18 21:30 77 12 150/71 95 10/30/18 21:10 86 17 151/83 96 10/30/18 20:50 79 13 154/78 97 10/30/18 20:40 79 12 145/79 96 10/30/18 20:35 81 19 95 10/30/18 20:26 86 16 95 10/30/18 20:04 98.4 F 96 18 113/80 97 Intake and Output 10/30/18 10/31/18 10/31/18 22:59 06:59 14:59 Intake Total 71.094 Balance 71.094 Intake: Intake, IV Titration 71.094 Amount Heparin Sod,Pork in 0.45% 71.094 NaCl 25,000 unit In 0.45 % NaCl 1 250ml.bag @ 12 UNITS/KG/HR 9.253 mls/hr IV .Q24H [facility] Rx#: [id number] Other: # Voids 1 Weight 77.111 kg - Constitutional General appearance: no acute distress - Respiratory Respiratory: bilateral: CTA - Cardiovascular Rhythm: regular Heart sounds: normal: S1, S2 Results 10/31/18 02:12 10/30/18 20:21 Cardiac Enzymes 10/30/18 10/30/18 10/31/18 Range/Units 20:21 20:21 02:12 AST 19 (14-36) U/L Troponin I 0.019 0.199 H* (0.000-0.034) ng/mL 10/31/18 Range/Units 05:40 AST (14-36) U/L Troponin I 0.255 H* (0.000-0.034) ng/mL Coagulation 10/30/18 10/31/18 Range/Units 20:21 05:40 PT 9.4 (9.0-12.0) sec APTT 23.2 34.5 H (22.0-30.0) sec Lipids 10/31/18 Range/Units 02:13 Triglycerides 182 H (<150) mg/dL Cholesterol 259 H (<200) mg/dL HDL Cholesterol 50 (40-60) mg/dL CBC 10/30/18 10/31/18 Range/Units 20:21 02:12 WBC 10.7 H (3.8-10.6) k/uL RBC 4.81 (3.80-5.40) m/uL Hgb 13.7 (11.4-16.0) gm/dL Hct 43.5 (34.0-46.0) % Plt Count 303 273 (150-450) k/uL Comprehensive Metabolic Panel 10/30/18 Range/Units 20:21 Sodium 141 (137-145) mmol/L Potassium 4.2 (3.5-5.1) mmol/L Chloride 108 H (98-107) mmol/L Carbon Dioxide 23 (22-30) mmol/L BUN 17 (7-17) mg/dL Creatinine 0.90 (0.52-1.04) mg/dL Glucose 113 H (74-99) mg/dL Calcium 10.6 H (8.4-10.2) mg/dL AST 19 (14-36) U/L ALT 32 (9-52) U/L Alkaline Phosphatase 104 (38-126) U/L Total Protein 7.4 (6.3-8.2) g/dL Albumin 4.6 (3.5-5.0) g/dL Current Medications Generic Name Dose Route Start Last Admin Trade Name Freq PRN Reason Stop Dose Admin Aspirin 325 mg 10/31/18 09:00 Aspirin PO DAILY [facility] Atorvastatin Calcium 80 mg 10/31/18 09:00 Lipitor PO DAILY [facility] Heparin Sodium (Porcine) 0 unit 10/30/18 22:16 Heparin IV Q6HR PRN Low PTT Protocol Heparin Sodium/Sodium Chloride 250 mls @ 9.253 mls/hr 10/30/18 22:30 10/31/18 06:36 25,000 unit/ Sodium Chloride IV 15 units/kg/hr .Q24H YESSENIA 11.567 mls/hr Titration Protocol 12 UNITS/KG/HR Ibuprofen 600 mg 10/31/18 07:28 Motrin PO TID PRN Mild Pain Metoprolol Tartrate 25 mg 10/31/18 09:00 Lopressor PO BID [facility] Nitroglycerin 0.4 mg 10/30/18 22:16 Nitrostat SUBLINGUAL Q5M PRN Chest Pain Intake and Output 10/30/18 10/31/18 10/31/18 22:59 06:59 14:59 Intake Total 71.094 Balance 71.094 Intake: Intake, IV Titration 71.094 Amount Heparin Sod,Pork in 0.45% 71.094 NaCl 25,000 unit In 0.45 % NaCl 1 250ml.bag @ 12 UNITS/KG/HR 9.253 mls/hr IV .Q24H [facility] Rx#: [id number] Other: # Voids 1 Weight 77.111 kg 10/31/18 02:12 10/30/18 20:21 Assessment and Plan Assessment: Assessment #1 chest discomfort #2 acute non-ST elevation NC #3 known CAD and prior revascularization #4 hypertension #5 dyslipidemia Plan #1 the patient was ruled in for acute non-ST elevation NC #2 giving her history, I did comment proceeding with coronary angiogram #3 continue the current medical regimen #4 follow-up with the patient
[2018-10-31] MEDS ORDERED: ASPIRIN 325 MG TAB PO STA (08:49)
[2018-10-31] MEDS: METOPROLOL TARTRATE 25 MG TAB PO SCH ×2 (08:55→20:07)
[2018-10-31] MEDS: IBUPROFEN 600 MG TAB PO PRN (11:19)
--- NOTE | 2018-10-31 11:29 | P.HPIM ---
History of Present Illness H&P Date: 10/31/18 Chief Complaint: Chest pain Candida Villa is a 63-year-old female patient of Dr. Kinza Bernal who presented to [facility] emergency room with a chief complaint of chest pain patient stated that yesterday while sitting down she started having a pressure sensation in the middle of her chest, she denies any radiation of the pain to her arm or to her jaw she denies any dizziness shortness of breath or diaphoresis, her chest pain was constant, she decided to come to emergency room for further evaluation, EKG in the emergency room revealed normal sinus rhythm without any acute ischemic changes, troponin level were elevated her first troponin was 0.019 second troponin 0.199 patient was admitted to observation unit she was started on IV heparin and cardiology consultation was requested. Patient has a known history of coronary artery disease she had angioplasty and stent placement to the PLV branch of the right coronary artery in September 2017. Patient states that she does not have insurance she has not seen Dr. Bernal in a while, she has not had any blood tests since she was discharged in September 2017, she has been taking aspirin only, she is not taking any other medication because she could not afford them per patient. Patient was seen and examined in the observation unit, she is still having chest pain at this point, she was evaluated by cardiology and plan is to proceed with cardiac catheterization today. Past Medical History Past Medical History: Eye Disorder, Hyperlipidemia, Hypertension, Myocardial Infarction (non Q-wave), Osteoarthritis (OA), Thyroid Disorder Additional Past Medical History / Comment(s): disintegrating joint syndrome, cataracts,complex migraines, seasonal allergies. [place] x2 Last Myocardial Infarction Date:: 10-08 History of Any Multi-Drug Resistant Organisms: None Reported Past Surgical History: Heart Catheterization With Stent, Orthopedic Surgery Additional Past Surgical History / Comment(s): ectopic surg., carpal tunnel surg., bilateral knee surg., BILATERAL CATARACT REMOVED Past Anesthesia/Blood Transfusion Reactions: No Reported Reaction Date of Last Stent Placement:: 10-08 Smoking Status: Current every day smoker - Past Family History Mother Family Medical History: Cancer Medications and Allergies Home Medications Medication Instructions Recorded Confirmed Type Cetirizine HCl [Zyrtec] 10 mg PO HS 12/16/13 10/30/18 History Aspirin 81 mg PO DAILY chew 10/16/17 10/30/18 Rx Allergies Allergy/AdvReac Type Severity Reaction Status Date / Time Penicillins Allergy Anaphylaxis Verified 10/30/18 23:22 bacitracin AdvReac blisters Verified 10/30/18 23:22 [From Neosporin ([id number])] bacitracin zinc AdvReac blisters Verified 10/30/18 23:22 [From Neosporin ([id number]-[id number])] ketorolac tromethamine AdvReac Nausea & Verified 10/30/18 23:22 [From Toradol] Vomiting neomycin sulfate AdvReac blisters Verified 10/30/18 23:22 [From Neosporin ([id number]-[id number])] polymyxin B AdvReac blisters Verified 10/30/18 23:22 [From Neosporin (akm-kop-alcby)] Sulfa (Sulfonamide AdvReac localized Verified 10/30/18 23:22 Antibiotics) eye swelling from drops tetanus immune globulin AdvReac localized Verified 10/30/18 23:22 swelling Physical Exam Vitals: Vital Signs Temp Pulse Pulse Resp BP BP Pulse Ox 10/31/18 08:00 98.0 F 69 16 126/67 96 10/31/18 03:22 18 10/31/18 03:08 97.9 F 79 18 121/65 93 L 10/31/18 00:00 18 10/30/18 23:19 97.5 F L 77 18 148/80 99 10/30/18 22:50 97.1 F L 73 16 136/72 97 10/30/18 22:30 73 13 125/53 10/30/18 22:10 80 31 H 145/73 96 10/30/18 21:50 78 14 140/72 97 10/30/18 21:30 77 12 150/71 95 10/30/18 21:10 86 17 151/83 96 10/30/18 20:50 79 13 154/78 97 10/30/18 20:40 79 12 145/79 96 10/30/18 20:35 81 19 95 10/30/18 20:26 86 16 95 10/30/18 20:04 98.4 F 96 18 113/80 97 Intake and Output 10/30/18 10/31/18 10/31/18 22:59 06:59 14:59 Intake Total 71.094 Balance 71.094 Intake: Intake, IV Titration 71.094 Amount Heparin Sod,Pork in 0.45% 71.094 NaCl 25,000 unit In 0.45 % NaCl 1 250ml.bag @ 12 UNITS/KG/HR 9.253 mls/hr IV .Q24H [facility] Rx#: [id number] Other: Voiding Method Toilet # Voids 1 Weight 77.111 kg In general patient is alert and oriented 3 in no apparent distress HEENT head normocephalic and atraumatic Neck is supple no JVD no goiter no lymphadenopathy Chest exam reveals a few scattered crackles bilaterally no wheezing Cardiac exam reveals regular heart sounds S1 and S2 no gallops no murmurs Abdomen is soft nontender no organomegaly was normal bowel sounds Extremity exam reveals no edema no cyanosis or clubbing Neurological examination reveals no gross focal deficit Results CBC & Chem 7: 10/31/18 02:12 10/30/18 20:21 Labs: Abnormal Lab Results - Last 24 Hours (Table) 10/30/18 10/30/18 10/31/18 Range/Units 20:21 20:21 02:12 WBC 10.7 H (3.8-10.6) k/uL APTT (22.0-30.0) sec Chloride 108 H (98-107) mmol/L Glucose 113 H (74-99) mg/dL Calcium 10.6 H (8.4-10.2) mg/dL Troponin I 0.199 H* (0.000-0.034) ng/mL Triglycerides (<150) mg/dL Cholesterol (<200) mg/dL LDL Cholesterol, Calc (0-99) mg/dL 10/31/18 10/31/18 10/31/18 Range/Units 02:13 05:40 05:40 WBC (3.8-10.6) k/uL APTT 34.5 H (22.0-30.0) sec Chloride (98-107) mmol/L Glucose (74-99) mg/dL Calcium (8.4-10.2) mg/dL Troponin I 0.255 H* (0.000-0.034) ng/mL Triglycerides 182 H (<150) mg/dL Cholesterol 259 H (<200) mg/dL LDL Cholesterol, Calc 173 H (0-99) mg/dL Thrombosis Risk Factor Assmnt - Choose All That Apply Each Risk Factor Represents 2 Points: Age 61-74 years Thrombosis Risk Factor Assessment Total Risk Factor Score: 2 Thrombosis Risk Factor Assessment Level: Low Risk Assessment and Plan Plan: #1 acute non-ST elevation myocardial infarction #2 tobacco abuse patient was counseled in length in regard to smoking cessation counseling more than 5 minutes #3 noncompliance with medication, patient was counseled in length she was alerted to free medication program at [facility] pharmacy #4 underlying history of thyroid disorder per chart patient is not on any medications will check TSH level #5 underlying history of osteoarthritis #6 underlying history of hypertension #7 underlying history of hyperlipidemia #8 underlying history of seasonal ALLERGIES At this time continue with current management plan for cardiac catheterization today Will discuss further plans with cardiology
[2018-10-31] MEDS ORDERED: MIDAZOLAM (PF) 2 MG/2 ML VIAL IV ONE (15:49)
[2018-10-31] MEDS ORDERED: fentaNYL (PF) 50 MCG/ML 2 ML AMP IV ONE (15:49)
[2018-10-31] MEDS ORDERED: LIDOCAINE 1% INJ 10MG/ML (20 ML MDV) SQ ONE (15:49)
[2018-10-31] MEDS: VERAPAMIL SYRINGE (5 MG/10 ML) INTRAARTER ONE ×2 (15:50→16:01)
[2018-10-31] MEDS ORDERED: HEPARIN SODIUM 1,000 UN/ML (10ML VL) IV ONE (15:51)
[2018-10-31] MEDS ORDERED: IOPAMIDOL-370 125ML BTL INJ ONE (16:01)
[2018-10-31] MEDS ORDERED: IV FLUID CONTINUATION 700 ML IV ONE (16:01)
[2018-10-31] MEDS ORDERED: RX INFO: IV CONTRAST WAS GIVEN 1 EACH MISC MISCELLANE PRN (16:05)
[2018-10-31] MEDS ORDERED: SODIUM CHLORIDE 0.9% 1,000 ML IV SCH (16:15)
[2018-10-31 16:49] VITALS: RESP 18
[2018-10-31] MEDS: HEPARIN SOD,PORK IN 0.45% NACL 25,000 UNIT in 0.45% NACL 1 250ML.BAG IV SCH (20:06)
--- NOTE | 2018-10-31 22:04 | CC ---
CARDIAC CATHETERIZATION REPORT DATE OF SERVICE: October 31, 2018 PERFORMING PHYSICIAN: Abel Delacruz MD. PROCEDURE PERFORMED: 1. Selective right and left coronary angiogram. 2. Left heart catheterization. INDICATION: This is a 63-year-old female patient with known history of coronary artery disease and prior stenting of the PLV branch of the left circumflex as well as hypertension and dyslipidemia who follows with Dr. Tucker in the office, presented to the hospital with chest discomfort and ruled in for acute non ST elevation myocardial infarction. APPROACH: Right radial artery. COMPLICATION: None. SEDATION: Level of sedation: Moderate with sedation length of 12 minutes. PROCEDURE DESCRIPTION: After obtaining informed consent, the patient was brought to cardiac skilled laborer. The right radial artery was cannulated using micropuncture technique and a micropuncture wire passed easily. Then I placed a 6-Tajik sheath in the right radial artery. After that I gave the patient 2 mg of verapamil IA and 10,000 units of heparin IV. Subsequently, I did perform selective right and left coronary angiogram using JR4 and JL3.5 catheters. Left heart catheterization was performed using the JR4 catheter which crossed the aortic valve. Then I did pullback across the valve. The procedure was completed without any complication. SELECTIVE CORONARY ANGIOGRAM: 1. The right coronary artery is a moderate caliber vessel and nondominant vessel and appeared to be angiographically normal. 2. The left main is angiographically normal it bifurcates into left circumflex and left anterior descending artery. 3. The left circumflex is a large caliber vessel and it is a dominant vessel. The very proximal left circumflex gives rise into first obtuse marginal branch which is small caliber vessel with ostial lesion appeared to be in the range of 70% to 80%. The mid left circumflex appeared to be normal and gives rise into second OM branch which seems to be normal. The circumflex distally bifurcates into PDA and PLV branches. The PLV branch is stented and the stent is patent. Distal to the stent, there was a lesion appears to be in the range of 50%. 4. The LAD in the proximal portion appeared to be normal. In the mid LAD has mild disease only. The LAD distally appeared to be normal. The LAD gives rise into multiple small diagonal branches. HEMODYNAMICS: The left ventricular end-diastolic pressure was about 8 mmHg without gradient across the aortic valve. CONCLUSION: 1. Intermediate disease involving the PLV branch of the left circumflex distal to a stented segment. 2. Severe disease involving the ostial of the first obtuse marginal branch of the left circumflex but the artery itself is a small caliber vessel. POSTPROCEDURE MANAGEMENT: Given the above anatomy, I did recommend maximize medical treatment. I am going to add oral nitrate to the current medical regimen. Anticipate discharge in next 24 hours. NEO / HEATHER: [id number] /
[2018-11-01] MEDS: IBUPROFEN 600 MG TAB PO PRN (03:37)
[2018-11-01 06:55] LABS: Mean Platelet Volume 6.8; Platelet Count 296 k/uL (150-450)
--- NOTE | 2018-11-01 08:32 | ECHOF ---
Referral Reason:nstemi MEASUREMENTS -------- HEIGHT: 167.6 cm WEIGHT: 77.1 kg BP: IVSd: 1.1 cm (0.6 - 1.1) LVIDd: 2.9 cm (3.9 - 5.3) LVPWd: 1.5 cm (0.6 - 1.1) IVSs: 1.3 cm LVIDs: 2.0 cm LVPWs: 1.8 cm Ao Diam: 3.1 cm (2.0 - 3.7) AV Cusp: 1.8 cm (1.5 - 2.6) LA Diam: 2.9 cm (2.7 - 3.8) MV EXCURSION: 13.536 mm (> 18.000) MV EF SLOPE: 61 mm/s (70 - 150) EPSS: 1.5 cm MV E Stewart: 0.70 m/s MV DecT: 240 ms MV A Stewart: 0.76 m/s MV E/A Ratio: 0.92 RAP: 5.00 mmHg RVSP: 13.29 mmHg FINDINGS -------- Sinus rhythm. This was a technically good study. The left ventricular size is normal. There is mild concentric left ventricular hypertrophy. Overa ll left ventricular systolic function is normal with, an EF between 55 - 60 %. The right ventricle is normal in size. The left atrial size is normal. The right atrial size is normal. Interatrial and interventricular septum intact. The aortic valve was not well visualized. The mitral valve leaflets are mildly thickened. There is trace mitral regurgitation. Trace tricuspid regurgitation present. The right ventricular systolic pressure, as measured by Dopp ler, is 13.29mmHg. Pulmonic valve appears structurally normal. The aortic root size is normal. Normal inferior vena cava with normal inspiratory collapse consistent with estimated right atrial pre ssure of 5 mmHg. There is no pericardial effusion. CONCLUSIONS -------- 1. Sinus rhythm. 2. This was a technically good study. 3. The left ventricular size is normal. 4. There is mild concentric left ventricular hypertrophy. 5. Overall left ventricular systolic function is normal with, an EF between 55 - 60 %. 6. The right ventricle is normal in size. 7. The left atrial size is normal. 8. The right atrial size is normal. 9. Interatrial and interventricular septum intact. 10. The aortic valve was not well visualized. 11. The mitral valve leaflets are mildly thickened. 12. There is trace mitral regurgitation. 13. Trace tricuspid regurgitation present. 14. The right ventricular systolic pressure, as measured by Doppler, is 13.29mmHg. 15. Pulmonic valve appears structurally normal. 16. The aortic root size is normal. 17. Normal inferior vena cava with normal inspiratory collapse consistent with estimated right atrial pressure of 5 mmHg. 18. There is no pericardial effusion. ACCOUNTS PAYABLE PROFESSIONAL: Nadege Overton RDCS
[2018-11-01] MEDS: ATORVASTATIN 80 MG TAB PO SCH (08:43)
[2018-11-01] MEDS: METOPROLOL TARTRATE 25 MG TAB PO SCH (08:43)
[2018-11-01] MEDS: ASPIRIN 325 MG TAB PO SCH (08:44)
[2018-11-01 08:52] VITALS: BP 132/64; PULSE 72; TEMP 98.1
[2018-11-01] MEDS ORDERED: ISOSORBIDE MONONITRATE ER 30 MG TAB.ER.24H PO SCH (09:00)
--- NOTE | 2018-11-01 10:12 | P.PN ---
Subjective Progress Note Date: 11/01/18 This is a pleasant 63-year-old female patient with a past medical history significant for coronary artery disease and prior stenting of the PLV branch of the right coronary artery in September 2017, hypertension, and dyslipidemia, presented to the emergency room complaining of chest discomfort. She was in her usual state of health yesterday when she was sitting home and suddenly started experiencing discomfort in the mid of the chest, as a pressure on the chest, without any radiation to the arm or neck or shoulders and without any associated symptoms of shortness of breath, sweating, dizziness, or syncope. Her daughter drove her to the hospital. In the ER the EKG showed sinus rhythm without any ischemic ST or T-wave abnormalities but nonspecific changes. The first set of enzymes came in to be normal but the second 2 sets of enzymes came in to be abnormal and consistent with acute non-ST elevation VA. Reviewing the patient's blood pressure medications, indicated that the only medication she was taking at home was aspirin. She is not on any metoprolol nor statin and when I asked her why she stated that she cannot afford taking the medications. Patient underwent a cardiac catheterization yesterday which revealed intermediate disease involving the PLV branch of the circumflex distal to the stented segment. Severe disease involving the ostial of the first obtuse marginal bra nch. Medical therapy was advised. Patient was seen and examined this morning, she feels well, denies any chest pain or difficulty in breathing. Blood pressure 132/60, heart rate in 70s, 94% on room air. Objective - Vital Signs Vital signs: Vital Signs Temp 98.1 F 11/01/18 08:00 Pulse 72 11/01/18 08:00 Resp 18 11/01/18 08:00 BP 132/64 11/01/18 08:00 Pulse Ox 94 L 11/01/18 08:00 Intake & Output 10/31/18 11/01/18 11/01/18 18:59 06:59 18:59 Intake Total 340 600 Balance 340 600 Weight 91.1 kg Intake: IV 100 Oral 240 600 Other: Voiding Method Toilet Toilet # Voids 1 - Exam PHYSICAL EXAMINATION: GENERAL: 61-year-old female in no acute distress at the time of my examination HEENT: Head is atraumatic, normocephalic. Pupils equal, round. Sclera anicteric. Conjunctiva are clear. Mucous membranes of the mouth are moist. Neck is supple. There is no elevated jugular venous pressure. No carotid bruit is heard. HEART EXAMINATION: Heart S1, S2 normal. No murmur or gallop heard. CHEST EXAMINATION: Lungs are clear to auscultation and precussion. No chest wall tenderness is noted on palpation or with deep breathing. ABDOMEN: Soft, nontender. Bowel sounds are heard. No organomegaly noted. EXTREMITIES: 2+ peripheral pulses with no evidence of peripheral edema and no calf tenderness noted. Right radial site clean and dry, good distal pulse. NEUROLOGIC patient is awake, alert and oriented 3 . . - Labs CBC & Chem 7: 11/01/18 06:05 10/30/18 20:21 Labs: Abnormal Lab Results - Last 24 Hours (Table) 10/31/18 Range/Units 02:13 TSH 5.770 H (0.465-4.680) mIU/L Assessment and Plan Plan: Assessment #1 chest discomfort, status post cardiac catheterization which revealed intermediate disease involving the PLV branch of the left circumflex distal to the stented segment. Severe disease involving the ostial the first obtuse marginal branch. #2 acute non-ST elevation VA #3 known CAD and prior revascularization #4 hypertension #5 dyslipidemia Plan Patient may be discharged home today from our perspective. We'll make her a follow-up appointment to see Dr. Gao in the office post discharge. Echocardiogram with Doppler study was performed which revealed an ejection fraction of 55-60%. DNP note has been reviewed, I agree with a documented findings and plan of care. Patient was seen and examined.
--- NOTE | 2018-11-01 13:21 | P.DS ---
Providers Date of admission: 10/31/18 13:58 Expected date of discharge: 11/01/18 Attending physician: Jannet Mcgregor Consults: 10/30/18 22:16 Consult Physician Urgent Consulting Provider: Zoraida Tucker Consult Reason/Comments: cpq Do you want consulting provider notified?: Yes Primary care physician: Kinza Bernal Hospital Course: Discharge Diagnosis: Chest pain with intermediate coronary artery disease status post cath without stent requirement Acute non-ST segment elevated myocardial infarction Hypertension Dyslipidemia Hypothyroidism with history of Graves' disease Hospital Course: Patient is a 63-year-old female with a past medical history of hypertension, dyslipidemia, myocardial infarction, coronary artery disease with history of stent placement, and history of Graves' disease who presented to the emergency department complaints of chest pain. In the emergency room she underwent an extensive evaluation. Her initial EKG did not reveal any ischemic changes, troponin levels initially were negative. She was started on IV heparin and admitted for further management. Cardiology was consulted and her troponin elevated. He came to light that she had not been taking any medications she had not seen Dr. Bernal in a while and has not had any recent blood tests. She was unable to afford her medications. She underwent cardiac cath on 10/31/18 which showed intermediate disease involving the PLV branch of the left circumflex and severe disease involving the ostial first obtuse marginal branch of the left circumflex. Cardiology recommended maximize medical therapy. She was started on Lipitor, metoprolol, Imdur, and aspirin. She had an echocardiogram done which showed a preserved ejection fraction 55-60%. Her TSH was checked and was 5.7. He came to light that she had been on thyroid medications in the past and had taken herself off. She will be discharged home on medications as listed below including aspirin, Lipitor, metoprolol, Imdur, and levothyroxine. She'll follow up with Dr. Delacruz in 2 weeks and she will follow up with Dr. Bernal in 1-2 days. Patient states she currently has Medicare and her Medicaid is pending and should reapply for disability. Patient seen and examined at bedside. Denies any chest pain, shortness of breath, nausea, or vomiting Vital signs reviewed and stable. General: non toxic, no distress, appears at stated age Derm: warm, dry Head: atraumatic, normocephalic, symmetric Eyes: EOMI, no lid lag, anicteric sclera Mouth: no lip lesion, mucus membranes moist Cardiovascular: S1S2 reg, no murmur, positive posterior tibial pulse bilateral, Lungs: CTA bilateral, no rhonchi, no rales , no accessory muscle use Abdominal: soft, nontender to palpation, no guarding, no appreciable organomegaly Ext: no gross muscle atrophy, no edema, no contractures Neuro: CN II-XI grossly intact, no focal neuro deficits Psych: Alert, oriented, appropriate affect A total of minutes of time were spent preparing this complex discharge summary . Patient Condition at Discharge: Stable Plan - Discharge Summary New Discharge Prescriptions: New Isosorbide Mononitrate ER [Imdur] 30 mg PO DAILY #30 tab.er.24h Levothyroxine Sodium 25 mcg PO DAILY #30 tablet Atorvastatin [Lipitor] 40 mg PO HS #30 tablet Metoprolol Tartrate [Lopressor] 25 mg PO BID #60 tab Continue Cetirizine HCl [Zyrtec Chewable] 10 mg PO HS Aspirin 81 mg PO DAILY chew Discharge Medication List Cetirizine HCl [Zyrtec Chewable] 10 mg PO HS 12/16/13 [History] Aspirin 81 mg PO DAILY chew 10/16/17 [Rx] Atorvastatin [Lipitor] 40 mg PO HS #30 tablet 11/01/18 [Rx] Isosorbide Mononitrate ER [Imdur] 30 mg PO DAILY #30 tab.er.24h 11/01/18 [Rx] Levothyroxine Sodium 25 mcg PO DAILY #30 tablet 11/01/18 [Rx] Metoprolol Tartrate [Lopressor] 25 mg PO BID #60 tab 11/01/18 [Rx] Follow up Appointment(s)/Referral(s): Kinza Bernal MD [Primary Care Provider] - 1-2 days Abel Delacruz MD [STAFF PHYSICIAN] - 1 Week Patient Instructions/Handouts: Chest Pain (ED) Activity/Diet/Wound Care/Special Instructions: heart healthy, low cholesterol diet Activity as tolerated
== END 2018-11-01 13:50 | disposition home or self-care (01) | DRG 282 ==
LOC: EC 20:02 → 1SOBS 22:16 → OBSVTOIN 10-31 13:58 → 3SCARD 10-31 16:13
PROVIDERS: ADMIT Internal Medicine; ATTEND Internal Medicine
PROC: B2111ZZ Fluoroscopy of Multiple Coronary Arteries using Low Osmolar Contrast (ICD-10-PCS; 2018-10-31)
PROC: B2151ZZ Fluoroscopy of Left Heart using Low Osmolar Contrast (ICD-10-PCS; 2018-10-31)
PROC: 4A023N7 Measurement of Cardiac Sampling and Pressure, Left Heart, Percutaneous Approach (ICD-10-PCS; principal; 2018-10-31 15:30)
DX: I21.4 Non-ST elevation (NSTEMI) myocardial infarction (principal); I10 Essential (primary) hypertension; I25.10 Atherosclerotic heart disease of native coronary artery without angina pectoris; I25.2 Old myocardial infarction; Z79.82 Long term (current) use of aspirin; Z95.5 Presence of coronary angioplasty implant and graft; E03.9 Hypothyroidism, unspecified; E78.5 Hyperlipidemia, unspecified; Z71.6 Tobacco abuse counseling; F17.210 Nicotine dependence, cigarettes, uncomplicated; E05.00 Thyrotoxicosis with diffuse goiter without thyrotoxic crisis or storm; Z98.42 Cataract extraction status, left eye; Z98.41 Cataract extraction status, right eye; Z88.0 Allergy status to penicillin; Z88.2 Allergy status to sulfonamides; Z88.7 Allergy status to serum and vaccine; Z88.8 Allergy status to other drugs, medicaments and biological substances; T38.1X6A Underdosing of thyroid hormones and substitutes, initial encounter; Z91.120 Patient's intentional underdosing of medication regimen due to financial hardship
CPT/HCPCS: 36415; 71046; 80053; 80061; 83690; 83735; 83880; 84443; 84484; 85025; 85049; 85610; 85730; 93005; 93306; 93458; 96374; 99291

== ENCOUNTER 2020-05-25 17:03 | Observation (INO) | payer MEDICARE, OTHER ==
[2020-05-25] MEDS: NITROGLYCERIN SL TABS 0.4 MG TAB SUBLINGUAL STA ×2 (17:49→17:55)
[2020-05-25 17:51] LABS: Basophils # (A) 0.1 k/uL (0-0.2); Basophils % (A) 1 %; Eosinophils # (A) 0.5 k/uL (0-0.7); Eosinophils % (A) 5 %; HGB 14.4 gm/dL (11.4-16.0); Lymphocytes # (A) 3.6 k/uL (1.0-4.8); Lymphocytes % (A) 37 %; MCHC 33.5 g/dL (31.0-37.0); MCV 89.6 fL (80.0-100.0); Mean Platelet Volume 6.8; Monocytes # (A) 0.4 k/uL (0-1.0); Monocytes % (A) 4 %; Neutrophils # (A) 4.9 k/uL (1.3-7.7); Neutrophils % (A) 50 %; Platelet Count 225 k/uL (150-450); RDW 13.4 % (11.5-15.5); WBC 9.6 k/uL (3.8-10.6)
[2020-05-25 18:01] LABS: Albumin 4.4 g/dL (3.5-5.0); Calcium 9.8 mg/dL (8.4-10.2); Magnesium 2.2 mg/dL (1.6-2.3); Potassium 4.5 mmol/L (3.5-5.1); Total Bilirubin 0.5 mg/dL (0.2-1.3); Total Protein 7.3 g/dL (6.3-8.2)
--- NOTE | 2020-05-25 18:05 | XR ---
EXAMINATION TYPE: XR chest 2V DATE OF EXAM: 05/25/2020 COMPARISON: 10/30/2018 HISTORY: Chest pain TECHNIQUE: FINDINGS: Heart and mediastinum are normal. Lungs are clear. Diaphragm is normal. Bony thorax appears normal. There are chest leads. IMPRESSION: Normal chest. No change.
--- NOTE | 2020-05-25 18:10 | ED ---
Chest Pain HPI - General Chief Complaint: Chest Pain Stated Complaint: Scapula Pain Time Seen by Provider: 05/25/20 17:19 Source: patient Mode of arrival: EMS Limitations: no limitations - History of Present Illness Initial Comments: 64-year-old female with history of hypertension, hyperlipidemia, CAD, and STEMI presenting to the emergency department a chief complaint of chest pain in shoulder pain. Patient states initially the pain started under her left scapula several days ago and he feels like someone is "punching" that region. States today the pain migrated around her left axilla and under her left breast. She also reports pain radiating down her left upper extremity. She denies any chest pain on exertion. Denies any shortness of breath. Denies any diaphoretic episodes, lightheadedness, dizziness, nausea, vomiting, blurry vision, headaches. Patient states she is a smoker. - Related Data Home Medications Medication Instructions Recorded Confirmed Atorvastatin [Lipitor] 80 mg PO HS 05/25/20 05/25/20 Cetirizine HCl 10 mg PO HS 05/25/20 05/25/20 Cholecalciferol (Vitamin D3) 125 mcg PO DAILY 05/25/20 05/25/20 [Vitamin D3] Meloxicam [Mobic] 7.5 mg PO BID 05/25/20 05/25/20 Previous Rx's Medication Instructions Recorded Aspirin 81 mg PO DAILY chew 10/16/17 Isosorbide Mononitrate ER [Imdur] 30 mg PO DAILY #30 tab.er.24h 11/01/18 Metoprolol Tartrate [Lopressor] 25 mg PO BID #60 tab 11/01/18 Allergies Allergy/AdvReac Type Severity Reaction Status Date / Time Penicillins Allergy Anaphylaxis Verified 05/25/20 18:05 bacitracin AdvReac blisters Verified 05/25/20 18:05 [From Neosporin ([id number])] bacitracin zinc AdvReac blisters Verified 05/25/20 18:05 [From Neosporin ([id number])] ketorolac tromethamine AdvReac Nausea & Verified 05/25/20 18:05 [From Toradol] Vomiting neomycin sulfate AdvReac blisters Verified 05/25/20 18:05 [From Neosporin ([id number])] polymyxin B AdvReac blisters Verified 05/25/20 18:05 [From Neosporin ([id number])] Sulfa (Sulfonamide AdvReac localized Verified 05/25/20 18:05 Antibiotics) eye swelling from drops tetanus immune globulin AdvReac localized Verified 05/25/20 18:05 swelling Review of Systems ROS Statement: Those systems with pertinent positive or pertinent negative responses have been documented in the HPI. ROS Other: All systems not noted in ROS Statement are negative. Past Medical History Past Medical History: Eye Disorder, Hyperlipidemia, Hypertension, Myocardial Infarction (non Q-wave), Osteoarthritis (OA), Thyroid Disorder Additional Past Medical History / Comment(s): disintegrating joint syndrome, cataracts,complex migraines, seasonal allergies Last Myocardial Infarction Date:: 10-08 History of Any Multi-Drug Resistant Organisms: None Reported Past Surgical History: Heart Catheterization With Stent, Orthopedic Surgery Additional Past Surgical History / Comment(s): ectopic surg., carpal tunnel surg., bilateral knee surg., BILATERAL CATARACT REMOVED Past Anesthesia/Blood Transfusion Reactions: No Reported Reaction Date of Last Stent Placement:: 10-08 Past Psychological History: No Psychological Hx Reported Smoking Status: Current every day smoker Past Alcohol Use History: None Reported Past Drug Use History: None Reported - Past Family History Mother Family Medical History: Cancer General Exam Limitations: no limitations General appearance: alert, in no apparent distress, obese Head exam: Present: atraumatic, normocephalic, normal inspection. Absent: other Eye exam: Present: normal appearance, PERRL, EOMI Pupils: Present: normal accommodation ENT exam: Present: normal exam, normal oropharynx, mucous membranes moist, TM's normal bilaterally, normal external ear exam Neck exam: Present: normal inspection, full ROM. Absent: tenderness Respiratory exam: Present: normal lung sounds bilaterally. Absent: respiratory distress, wheezes, rales Cardiovascular Exam: Present: regular rate, normal rhythm, normal heart sounds. Absent: systolic murmur, diastolic murmur GI/Abdominal exam: Present: soft. Absent: distended, tenderness, guarding, rebound Extremities exam: Present: normal inspection, full ROM, normal capillary refill. Absent: tenderness, pedal edema, joint swelling, calf tenderness Back exam: Present: normal inspection, full ROM. Absent: tenderness, CVA tenderness (R), CVA tenderness (L), muscle spasm, paraspinal tenderness, vertebral tenderness Neurological exam: Present: alert, oriented X3 Psychiatric exam: Present: normal affect, normal mood Skin exam: Present: warm, dry, intact, normal color Course Vital Signs 05/25/20 05/25/20 05/25/20 17:07 17:48 17:53 Temperature 97.9 F Pulse Rate 56 L 56 L 55 L Respiratory 18 18 18 Rate Blood Pressure 127/69 156/72 146/71 O2 Sat by Pulse 96 98 96 Oximetry Chest Pain MDM - MDM 64-year-old female presenting to emergency Department with a chief complaint of shoulder and chest pain. On physical examination, patient does not have any reproducible chest pain. Physical examination is unremarkable. EKG showing sinus bradycardia. Chest x-rays are unremarkable. CBC CMP unremarkable. Initial troponins are negative. Considering the patient's multiple comorbidities and previous cardiac stent, she will be admitted for cardiac observation and serial troponins. Case discussed with Dr. Barreto. Admitting physician is Dr. zapata Cardiology on consult Disposition Clinical Impression: Chest pain Disposition: ADMITTED IP TO THIS HOSP Condition: Stable Instructions (If sedation given, give patient instructions): Chest Pain (ED) Is patient prescribed a controlled substance at d/c from ED?: No Referrals: Kinza Bernal MD [Primary Care Provider] - 1-2 days Time of Disposition: 19:23
[2020-05-25 18:25] LABS: INR 0.9 (<1.2); Prothrombin Time 9.9 sec (9.0-12.0)
[2020-05-25] MEDS ORDERED: NITROGLYCERIN SL TABS 0.4 MG TAB SUBLINGUAL PRN (19:26)
[2020-05-25] MEDS ORDERED: HEPARIN SODIUM,PORCINE 5,000 UNIT/ML 1 ML VIAL IV PRN (19:28)
[2020-05-25] MEDS ORDERED: HEPARIN SODIUM,PORCINE 5,000 UNIT/ML 1 ML VIAL IV ONE (19:28)
[2020-05-25] MEDS ORDERED: HEPARIN SOD,PORK IN 0.45% NACL 25,000 UNIT in 0.45% NACL 1 250ML.BAG IV SCH (19:30)
[2020-05-26 07:45] VITALS: RESP 16; TEMP 97
[2020-05-26] MEDS ORDERED: ATORVASTATIN 80 MG TAB PO STA (08:04)
[2020-05-26] MEDS ORDERED: SODIUM CHLORIDE 0.9% 1,000 ML in EMPTY BAG 1 BAG IV ONE (08:04)
[2020-05-26] MEDS ORDERED: ALPRAZolam 0.25 MG TAB PO PRN (08:04)
[2020-05-26] MEDS ORDERED: ALPRAZolam 0.5 MG TAB PO PRN (08:04)
[2020-05-26] MEDS ORDERED: ASPIRIN 325 MG TAB PO STA (08:04)
[2020-05-26] MEDS ORDERED: NITROGLYCERIN SL TABS 0.4 MG TAB SUBLINGUAL PRN (08:04)
--- NOTE | 2020-05-26 09:44 | CONS ---
CONSULTATION Mrs Villa is a 64-year-old female with known history of coronary artery disease, chronic tobacco use, hypertension, and hyperlipidemia who presented to the emergency room with symptoms of shoulder and chest discomfort. Patient has a known history of coronary artery disease. She presented in September 2017 with symptoms of chest discomfort. At that time, she had mild troponin elevation and underwent cardiac catheterization that revealed significant disease in the left PLV with moderate disease in the mid LAD with a mildly impaired left ventricular systolic function. She subsequently underwent a stenting of the left PLV using a 2.25 x 12 mm Xience stent. She has done reasonably well from the cardiac standpoint, but for the last 2 days she has been complaining of discomfort below the left shoulder blade, at times positional, than yesterday have discomfort in the left side of the chest radiating to the axilla. The discomfort was not exertional in pattern. The patient is not very active physically. She has some dyspnea on exertion. No dizziness. No palpitation. No syncope. No PND, orthopnea. No peripheral edema. She has underwent a repeat echocardiogram in October of 2018 that revealed a preserved ventricular size and systolic function and underwent repeat cardiac catheterization at that time because of an admission with chest discomfort and at that time he had an intermediate disease involving the PLV branch with a significant disease in the ostium of the first obtuse marginal branch that is small and medical therapy was recommended. Her medication at home include metoprolol tartrate 25 mg twice a day, isosorbide 30 mg daily, , Lipitor 80 mg daily, and aspirin once a day. REVIEW OF SYSTEMS: RESPIRATORY SYSTEM: She has chronic smoking. Dyspnea on exertion. GI SYSTEM: No nausea, no vomiting. No GI bleeding. SYSTEM: No dysuria or hematuria. NERVOUS SYSTEM: No stroke or seizure. PHYSICAL EXAMINATION: She is a 64-year-old female, alert, oriented, in no apparent distress. Blood pressure running in the 110s to 130 with a heart rate in the 50s. HEAD: Normocephalic. EYES: Sclerae nonicteric. NECK: Good upstroke, no bruit, no jugular venous distention. LUNGS: Clear to auscultation. HEART: Regular rate and rhythm, S1, S2. No S3. No S4. No murmur or rub. ABDOMEN: Soft, nontender, positive bowel sounds, no organomegaly. EXTREMITIES: No edema, intact pulses, decreased in the right radial pulse. EKG revealed a sinus mechanism, normal axis and intervals, rate of 56. The chest x-ray shows no acute infiltrate. IMPRESSION: 1. Chest discomfort and shoulder discomfort of unclear etiology, have some atypical features for ischemic heart disease in a patient with known history of coronary artery disease. 2. History of prior stenting in 2018. 3. History of hypertension. 4. Chronic tobacco use. 5. Hyperlipidemia. RECOMMENDATION: I have recommended to proceed with coronary angiography to assess her status and guide her treatment. The rationale behind the procedures, risks and the complication were discussed with the patient who is in full understanding and agreement. I have discussed with her the importance of smoking cessation. Thank you for this consult. Will follow with you. NEO / IJN: [id number] /
[2020-05-26] MEDS ORDERED: LIDOCAINE 1% INJ 10MG/ML (20 ML MDV) SQ ONE (09:57)
[2020-05-26] MEDS ORDERED: fentaNYL (PF) 50 MCG/ML 2 ML AMP IV ONE (09:57)
[2020-05-26] MEDS ORDERED: VERAPAMIL SYRINGE (5 MG/10 ML) INTRAARTER ONE (09:59)
[2020-05-26] MEDS ORDERED: MIDAZOLAM 2 MG/2 ML VIAL IV ONE (09:59)
[2020-05-26] MEDS ORDERED: IV FLUID CONTINUATION 900 ML IV ONE (09:59)
[2020-05-26] MEDS ORDERED: IOPAMIDOL-370 125ML BTL INJ ONE (10:15)
[2020-05-26] MEDS ORDERED: ASPIRIN 81 MG PO SCH (10:30)
[2020-05-26] MEDS ORDERED: ISOSORBIDE MONONITRATE ER 30 MG TAB.ER.24H PO SCH (10:30)
[2020-05-26] MEDS ORDERED: METOPROLOL TARTRATE 25 MG TAB PO SCH (10:30)
[2020-05-26] MEDS ORDERED: RX INFO: IV CONTRAST WAS GIVEN 1 EACH MISC MISCELLANE PRN (10:32)
[2020-05-26] MEDS ORDERED: SODIUM CHLORIDE 0.9% 1,000 ML IV SCH (10:45)
--- NOTE | 2020-05-26 11:35 | CC ---
CARDIAC CATHETERIZATION REPORT Mrs Villa is a 64-year-old female with known history of coronary artery disease status post percutaneous revascularization 2018, history of hypertension, hyperlipidemia, and chronic tobacco use, who presented with symptoms of chest and shoulder discomfort. Her cardiac enzymes were unremarkable. Because of her prior history and presentation, recommendation made regarding cardiac catheterization. The procedures, risks, and complications were discussed with the patient who is in full understanding and agreement. PROCEDURE: Patient was brought to the laborer salvage in a fasting semi-sedated state after receiving fentanyl and Benadryl and achieving moderate conscious sedated state. Using Xylocaine anesthesia and Seldinger technique, a 6-[place] sheath was introduced in the left radial artery. Selective right and left coronary angiography performed using 5-Central African 4 bend right and left Familia catheter, multiple views of the coronary artery including hemiaxial views were obtained. Following that, a 5-[place] tight pigtail catheter introduced into the left ventricle and a 30-degree BRAY view of the left ventricle was obtained. Following that, catheter and sheath were removed. Hemostasis was obtained with deployment of a TR band. There was no immediate complication. Patient is returned to her room in stable condition. Of note, the patient received 5000 units of intravenous heparin as well as intra-arterial verapamil. FINDINGS: LEFT MAIN: This is a large-sized vessel, bifurcating into left circumflex, left anterior descending artery. Left main coronary artery has no evidence of high-grade stenosis. LEFT ANTERIOR DESCENDING ARTERY: This is a large-sized vessel, reaching toward the apex with a wraparound apex segment giving rise to small diagonal branch. Left anterior descending artery has diffuse intimal disease of 20% to 30% in the proximal mid segment without any evidence of high-grade stenosis. LEFT CIRCUMFLEX: This is a dominant vessel, large in caliber, giving rise to a large obtuse marginal branch. Before the bifurcated PDA and posterolateral segment and branches, the stented segment in the PLV is patent. There is a 20% to 30% plaque distal to it. The vessel beyond that it is small in caliber. RIGHT CORONARY ARTERY: This is a small nondominant vessel, that has no evidence of high-grade stenosis. LEFT VENTRICULOGRAM: Left ventriculogram was performed in the 30 degree BRAY view and revealed inferobasal akinesis. Ejection fraction is 45%-50%. There was no significant mitral regurgitation. HEMODYNAMICS: There was no gradient across the aortic valve. The left ventricular end- diastolic pressure 12-14 mmHg. CONCLUSION: 1. Patent stent to the left circumflex. 2. Mild to moderate disease distal to the stent. 3. Mild disease in the LAD. 4. Mildly impaired left ventricular systolic function. RECOMMENDATION: In view of finding anatomy, I recommend continue medical therapy with aggressive risk modifications being initiated. Those findings and recommendation were discussed with the patient and she is in full understanding and agreement. Duration of sedation 25 minutes. MMODL / IJN: [id number] /
--- NOTE | 2020-05-26 11:35 | LTR ---
DATE OF SERVICE: 05/26/2020 RE: Candida Villa Dear Dr. Bernal: I had the pleasure to perform cardiac catheterization on Mrs. Villa at [facility] on May 26, 2020 and a full copy of the procedure note will be forwarded to you. In brief, she was found to have no evidence of significant progression of disease with patent stent to the left circumflex and mild disease in the LAD and based on those findings, I recommend continue medical therapy with the aggressive coronary risk modifications being initiated. Thank you again for allowing me to participate in this patient's personal care. Please feel free to call for any questions. Sincerely yours, Zoraida Tucker MD MMMICHEALL / NIKOSN: [id number] /
[2020-05-26 11:49] LABS: Cholesterol 175 mg/dL (<200); HDL Cholesterol 59 mg/dL (40-60); LDL Cholesterol,Calculated 72 mg/dL (0-99); Triglycerides 222 mg/dL (<150)
[2020-05-26] MEDS ORDERED: ACETAMINOPHEN TAB 325 MG TAB PO PRN (13:12)
[2020-05-26] MEDS ORDERED: traMADol 50 MG TAB PO SCH (13:15)
--- NOTE | 2020-05-26 14:21 | P.HPIM ---
History of Present Illness H&P Date: 05/26/20 Chief Complaint: Chest pain Candida Villa, is a 64-year-old female patient of Dr. Bernal, who presented to [facility] emergency room with a chief complaint of chest pain radiating to her left shoulder, she described her pain as dull pain in the shoulder blade radiating to the axilla and down underneath her left breast and radiating down her left upper extremity, she denies any shortness of breath no palpitation no diaphoresis no nausea or vomiting accompanying . patient has a known history of coronary artery disease she underwent angioplasty and stent placement in September 2017, she underwent repeat cardiac catheterization in October 2018 at that time medical therapy was recommended. Patient also has underlying history of hypertension, hyperlipidemia, and tobacco use, she was evaluated in the emergency room EKG revealed sinus bradycardia otherwise normal EKG , troponin level were negative patient was admitted to telemetry floor cardiology consultation was requested. Past Medical History Past Medical History: Eye Disorder, Hyperlipidemia, Hypertension, Myocardial Infarction (non Q-wave), Osteoarthritis (OA), Thyroid Disorder Additional Past Medical History / Comment(s): disintegrating joint syndrome, cataracts,complex migraines, seasonal allergies Last Myocardial Infarction Date:: 10-08 History of Any Multi-Drug Resistant Organisms: None Reported Past Surgical History: Heart Catheterization With Stent, Orthopedic Surgery Additional Past Surgical History / Comment(s): ectopic surg., carpal tunnel surg., bilateral knee surg., BILATERAL CATARACT REMOVED Past Anesthesia/Blood Transfusion Reactions: No Reported Reaction Date of Last Stent Placement:: 10-08 Past Psychological History: No Psychological Hx Reported Smoking Status: Current every day smoker Past Alcohol Use History: None Reported Past Drug Use History: None Reported - Past Family History Mother Family Medical History: Cancer Medications and Allergies Home Medications Medication Instructions Recorded Confirmed Type Aspirin 81 mg PO DAILY chew 10/16/17 05/25/20 Rx Isosorbide Mononitrate ER [Imdur] 30 mg PO DAILY #30 tab.er.24h 11/01/1809/09 Rx Metoprolol Tartrate [Lopressor] 25 mg PO BID #60 tab 11/01/18 05/25/20 Rx Atorvastatin [Lipitor] 80 mg PO HS 05/25/20 05/25/20 History Cetirizine HCl 10 mg PO HS 05/25/20 05/25/20 History Cholecalciferol (Vitamin D3) 125 mcg PO DAILY 05/25/20 05/25/20 History [Vitamin D3] Meloxicam [Mobic] 7.5 mg PO BID 05/25/20 05/25/20 History Acetaminophen [Tylenol] 650 mg PO Q6H PRN #12 05/26/20 Rx traMADol HCL [Ultram] 50 mg PO Q6HR #12 tab 05/26/20 Rx Allergies Allergy/AdvReac Type Severity Reaction Status Date / Time Penicillins Allergy Anaphylaxis Verified 05/25/20 18:05 bacitracin AdvReac blisters Verified 05/25/20 18:05 [From Neosporin ([id number])] bacitracin zinc AdvReac blisters Verified 05/25/20 18:05 [From Neosporin ([id number])] ketorolac tromethamine AdvReac Nausea & Verified 05/25/20 18:05 [From Toradol] Vomiting neomycin sulfate AdvReac blisters Verified 05/25/20 18:05 [From Neosporin ([id number])] polymyxin B AdvReac blisters Verified 05/25/20 18:05 [From Neosporin ([id number])] Sulfa (Sulfonamide AdvReac localized Verified 05/25/20 18:05 Antibiotics) eye swelling from drops tetanus immune globulin AdvReac localized Verified 05/25/20 18:05 swelling Physical Exam Vitals: Vital Signs Temp Pulse Pulse Resp BP BP Pulse Ox 05/26/20 09:00 16 05/26/20 07:43 97 F L 56 L 16 150/71 97 05/26/20 06:18 98.7 F 61 20 119/62 96 05/26/20 02:00 97.8 F 54 L 16 137/82 98 05/25/20 22:19 56 L 18 131/56 97 05/25/20 19:30 55 L 18 153/81 97 05/25/20 17:53 55 L 18 146/71 96 05/25/20 17:48 56 L 18 156/72 98 05/25/20 17:07 97.9 F 56 L 18 127/69 96 Intake and Output 05/25/20 05/26/20 05/26/20 22:59 06:59 14:59 Intake Total 200 Balance 200 Intake: IV 200 Other: Voiding Method Toilet # Voids 1 Weight 90.718 kg In general patient is alert and oriented 3 in no apparent distress HEENT head normocephalic and atraumatic Neck is supple no JVD no goiter no lymphadenopathy Chest exam reveals a few scattered crackles no wheezing Cardiac exam reveals regular heart sounds S1 and S2 no gallops no murmurs nor rubs Abdomen is soft nontender no organomegaly with normal bowel sounds Extremity exam reveals no edema no cyanosis or clubbing Neurological examination reveals no gross focal deficit Results CBC & Chem 7: 05/25/20 17:34 05/25/20 17:34 Labs: Abnormal Lab Results - Last 24 Hours (Table) 05/25/20 05/26/20 Range/Units 17:34 01:12 APTT 51.9 H (22.0-30.0) sec BUN 20 H (7-17) mg/dL Glucose 106 H (74-99) mg/dL Assessment and Plan Plan: 1. Episode of chest pain in a 64-year-old female with multiple cardiac risk factors including previous history of coronary artery disease with history of angioplasty and stent placement in 2018 2. Underlying history of hypertension 3. Underlying history of hyperlipidemia 4. Underlying history of tobacco use At this time patient is admitted to telemetry floor she was evaluated by cardiology and plan is to proceed with cardiac catheterization on 05/26/2020
--- NOTE | 2020-05-26 14:26 | P.PN ---
Subjective Progress Note Date: 05/26/20 Diagnosis on discharge: 1. Episode of chest pain in a 64-year-old female with multiple cardiac risk factors including previous history of coronary artery disease with history of angioplasty and stent placement in 2018 2. Underlying history of hypertension 3. Underlying history of hyperlipidemia 4. Underlying history of tobacco use Hospital course: Candida Villa, is a 64-year-old female patient of Dr. Bernal, who presented to [facility] emergency room with a chief complaint of chest pain radiating to her left shoulder, she described her pain as dull pain in the shoulder blade radiating to the axilla and down underneath her left breast and radiating down her left upper extremity, she denies any shortness of breath no palpitation no diaphoresis no nausea or vomiting accompanying . patient has a known history of coronary artery disease she underwent angioplasty and stent placement in September 2017, she underwent repeat cardiac catheterization in October 2018 at that time medical therapy was recommended. Patient also has underlying history of hypertension, hyperlipidemia, and tobacco use, she was evaluated in the emergency room EKG revealed sinus bradycardia otherwise normal EKG , troponin level were negative patient was admitted to telemetry floor cardiology consultation was requested. On 05/26/2020 patient was seen and examined on the medical floor she is alert and oriented 3 in no apparent distress she is complaining of pain in her left shoulder otherwise no complaints at this time she was seen by cardiology and underwent cardiac catheterization today no abnormality requiring intervention at this time was found please refer to complete report of cardiac catheterization by Dr. Tucker, patient was cleared for discharge by cardiology she was stable she was given tramadol and Tylenol for shoulder pain she was discharged home on 05/26/2020 she will follow-up with her primary care physician Dr. Bernal she will also follow with cardiology. During this admission patient was counseled to quit smoking. Objective - Vital Signs Vital signs: Vital Signs Temp 97 F L 05/26/20 07:43 Pulse 61 05/26/20 12:42 Resp 16 05/26/20 12:42 BP 126/62 05/26/20 12:42 Pulse Ox 97 05/26/20 12:42 Intake & Output 05/25/20 05/26/20 05/26/20 18:59 06:59 18:59 Intake Total 200 Balance 200 Weight 90.718 kg Intake: IV 200 Sodium Chloride 0.9% 1, 0 000 ml @ 75 mls/hr IV . [id number] [facility] Rx#:[id number] Other: Voiding Method Toilet # Voids 1 - Labs CBC & Chem 7: 05/25/20 17:34 05/25/20 17:34 Labs: Abnormal Lab Results - Last 24 Hours (Table) 05/25/20 05/26/20 05/26/20 Range/Units 17:34 01:12 01:12 APTT 51.9 H (22.0-30.0) sec BUN 20 H (7-17) mg/dL Glucose 106 H (74-99) mg/dL Triglycerides 222 H (<150) mg/dL
[2020-05-26 14:51] VITALS: BP 134/72; PULSE 64
--- NOTE | 2020-05-26 18:00 | ECHOF ---
Referral Reason:cad MEASUREMENTS -------- HEIGHT: 165.1 cm WEIGHT: 90.7 kg BP: RVIDd: 2.4 cm (< 3.3) IVSd: 1.0 cm (0.6 - 1.1) LVIDd: 4.8 cm (3.9 - 5.3) LVPWd: 1.3 cm (0.6 - 1.1) IVSs: 1.5 cm LVIDs: 3.4 cm LVPWs: 1.4 cm LA Diam: 3.8 cm (2.7 - 3.8) LAESV Index (A-L): 25.16 ml/m Ao Diam: 3.1 cm (2.0 - 3.7) AV Cusp: 2.2 cm (1.5 - 2.6) MV EXCURSION: 21.171 mm (> 18.000) MV EF SLOPE: 89 mm/s (70 - 150) EPSS: 0.3 cm MV E Stewart: 0.82 m/s MV DecT: 200 ms MV A Stewart: 0.71 m/s MV E/A Ratio: 1.16 RAP: 5.00 mmHg RVSP: 20.73 mmHg FINDINGS -------- Sinus rhythm. This was a technically adequate study. The left ventricular size is normal. Overall left ventricular systolic function is low-normal with, an EF between 50 - 55 %. Basal inferior LV wall motion is hypokinetic. The right ventricle is normal in size. Normal LA size by volume 22+/-6 ml/m2. The right atrial size is normal. There is mild aortic valve sclerosis. The mitral valve is normal. Mild mitral regurgitation is present. The tricuspid valve appears structurally normal. Mild tricuspid regurgitation present. Right vent ricular systolic pressure is normal at < 35 mmHg. There is no pulmonic regurgitation present. The aortic root size is normal. There is no pericardial effusion. CONCLUSIONS -------- 1. The left ventricular size is normal. 2. Overall left ventricular systolic function is low-normal with, an EF between 50 - 55 %. 3. Basal inferior LV wall motion is hypokinetic. 4. Normal LA size by volume 22+/-6 ml/m2. 5. There is mild aortic valve sclerosis. 6. Mild mitral regurgitation is present. 7. Mild tricuspid regurgitation present. SPIDER ASSEMBLER: Patricia Valera RDCS
[2020-05-26] MEDS ORDERED: LORATADINE 10 MG TAB PO SCH (21:00)
[2020-05-26] MEDS ORDERED: MELOXICAM 7.5 MG TAB PO SCH (21:00)
[2020-05-27] MEDS ORDERED: CHOLECALCIFEROL 1,000 UNIT TAB PO SCH (09:00)
[2020-05-27] MEDS ORDERED: ATORVASTATIN 80 MG TAB PO SCH (21:00)
== END 2020-05-26 15:00 | disposition home or self-care (01) ==
LOC: EC 17:03 → 1SOBS 19:21
PROVIDERS: ADMIT Internal Medicine; ATTEND Internal Medicine
DX: R07.89 Other chest pain (principal); M25.512 Pain in left shoulder; I25.10 Atherosclerotic heart disease of native coronary artery without angina pectoris; R06.09 Other forms of dyspnea; R00.1 Bradycardia, unspecified; I08.3 Combined rheumatic disorders of mitral, aortic and tricuspid valves; E78.5 Hyperlipidemia, unspecified; I10 Essential (primary) hypertension; M19.90 Unspecified osteoarthritis, unspecified site; G43.109 Migraine with aura, not intractable, without status migrainosus; E07.9 Disorder of thyroid, unspecified; F17.200 Nicotine dependence, unspecified, uncomplicated; J30.2 Other seasonal allergic rhinitis; Z79.1 Long term (current) use of non-steroidal anti-inflammatories (NSAID); Z79.899 Other long term (current) drug therapy; Z79.82 Long term (current) use of aspirin; Z88.1 Allergy status to other antibiotic agents; Z88.5 Allergy status to narcotic agent; Z88.0 Allergy status to penicillin; Z88.2 Allergy status to sulfonamides; Z88.7 Allergy status to serum and vaccine; Z88.8 Allergy status to other drugs, medicaments and biological substances; I25.2 Old myocardial infarction; Z95.5 Presence of coronary angioplasty implant and graft; Z98.42 Cataract extraction status, left eye; Z98.41 Cataract extraction status, right eye; Z80.9 Family history of malignant neoplasm, unspecified
CPT/HCPCS: 99152; 99153; 96376; 96365; 96366 ×2; 99291; 36415; 93005 ×2; 93306; 93458; 80061; 80053; 83690; 83735; 84484 ×2; 85025; 85610; 85730 ×2; 71046; G0378 ×2; C1769; C1894; J2250; J1644 ×3; J2001; J3010; Q9967

== ENCOUNTER → 2021-04-24 | Outpatient (CLI) | payer MEDICARE, OTHER ==
--- NOTE | 2021-04-24 11:46 | MM ---
Reason for exam: clinical finding. Last mammogram was performed 7 years and 8 months ago. History: Patient is postmenopausal and had first child after 31. Benign stereotactic core biopsy of the left breast, March 26, 2001. Benign stereotactic core biopsy of the right breast, March 26, 2001. Core biopsy of the left breast. Core biopsy of the right breast. Indicated problem(s): lump or thickening in the right breast. Physical Findings: Nurse Summary: 2 x 2cm nodule in the right breast upper outer quadrant (nurse ts). MG 3D Diag Mammo W/Cad QUIRINO Bilateral CC and MLO view(s) were taken. No prior studies available for comparison. Finding: There is an intermediate concern, suspicious 18 mm high density, spiculated round mass located 8 cm from the nipple in the upper outer quadrant, posterior position of the right breast. Previous mammotome biopsy in the right and left breast. These results were verbally communicated with the patient and result sheet given to the patient on 04/24/21. ASSESSMENT: Incomplete: need additional imaging evaluation, BI-RAD 0 RECOMMENDATION: Ultrasound of the right breast.
--- NOTE | 2021-04-24 11:48 | USB ---
Reason for exam: additional evaluation requested from abnormal screening. History: Patient is postmenopausal and had first child after 31. Benign stereotactic core biopsy of the left breast, March 26, 2001. Benign stereotactic core biopsy of the right breast, March 26, 2001. Core biopsy of the left breast. Core biopsy of the right breast. US Breast RT Right complete breast ultrasound includes all four quadrants, the retroareolar region and axilla. Finding demonstrates a 18 x 1.9 x 2.3cm oval, irregular, solid, taller than wide lesion at 10 o'clock. These results were verbally communicated with the patient and result sheet given to the patient on 04/24/21. ASSESSMENT: Highly suggestive of malignancy, BI-RAD 5 RECOMMENDATION: Surgical consultation and ultrasound core biopsy of the right breast. Called Dr. Bernal's office with mammographic findings and has scheduled an appointment for the patient for 04/26/21 at 12:[address] Moya. Biopsy scheduled for 05/09/21 at 1:00. PRELIMINARY REPORT CALLED AND FAXED TO DR. MOYA ON 04/24/21.
== END | disposition home or self-care (01) ==
LOC: RADMAMWWP 07:47
PROVIDERS: ATTEND Family Medicine
DX: N63.11 Unspecified lump in the right breast, upper outer quadrant (principal); Z78.0 Asymptomatic menopausal state
CPT/HCPCS: 77066; 76641; G0279; 77062

== ENCOUNTER → 2021-05-24 | Outpatient (CLI) | payer MEDICARE, OTHER ==
[2021-05-24 14:56] VITALS: BP 147/68; PULSE 66; RESP 16; TEMP 98.5
--- NOTE | 2021-05-24 15:21 | P.GSHP ---
History of Present Illness H&P Date: 05/24/21 Chief Complaint: Radiographic abnormality right breast Candida is a 65-year-old white female who underwent a bilateral mammogram on . This revealed a lesion of concern in the upper outer quadrant of the right breast. She subsequently underwent an ultrasound of the area which revealed a 0.8 x 2.3 cm oval irregular solid tolerated white lesion at 10:00. She is able to feel the lesion in her breast for 2 months. It has not changed in size. It is painful. She does not feel any lumps masses or nodules of concern in the left breast. She is not complaining of any nipple discharge. She's not had any recent trauma or infection in the breast. She did have an open biopsy of the left breast in the remote past which was benign. Caffeine: 1 cup coffee/day nicotine: 5 cigarettes per day Chocolate: rare Hormonal history: Menarche: 9 M1 1 terminated secondary to hyperthyroid breast fed: no, age at first : 21 menopause: 36 BCP: 2 years hormones: none Surgical History: carpal tunnel Ganglion cyst removal Bilateral knee cataract tubaligation Medical history: spinal arthritis DJD thyroid ablation radioactive iodine HTN high cholesterol Myocardial infarction 2; last one 2018 Social History: Nicotine: 5 cigarettes per day, smoked since alcohol: none drugs: none - Constitutional Constitutional: Denies chills, Denies fever - EENT Eyes: denies blurred vision, denies pain Ears: deny: decreased hearing, tinnitus Ears, nose, mouth and throat: Denies headache, Denies sore throat - Breasts Breasts: bilateral: as per HPI - Cardiovascular Cardiovascular: Denies chest pain, Denies shortness of breath - Respiratory Respiratory: Denies cough, Denies 7 - Gastrointestinal Gastrointestinal: Denies abdominal pain, Denies diarrhea, Denies nausea, Denies vomiting - Genitourinary (Female) Genitourinary: Reports kidney stones, Denies dysuria, Denies hematuria - Menstruation Menstruation: Reports postmenopausal - Musculoskeletal Musculoskeletal: Reports as per HPI - Integumentary Integumentary: Denies pruritus, Denies rash - Neurological Neurological: Denies numbness, Denies weakness - Psychiatric Psychiatric: Denies anxiety, Denies depression - Endocrine Endocrine: Denies fatigue, Denies weight change - Hematologic/Lymphatic Comment: aspirin - Allergic/Immunologic Allergic/Immunologic: Reports seasonal allergies Past Medical History Past Medical History: Eye Disorder, Hyperlipidemia, Hypertension, Myocardial Infarction (non Q-wave), Osteoarthritis (OA), Thyroid Disorder Additional Past Medical History / Comment(s): disintegrating joint syndrome, cataracts,complex migraines, seasonal allergies Last Myocardial Infarction Date:: 10-08 History of Any Multi-Drug Resistant Organisms: None Reported Past Surgical History: Heart Catheterization With Stent, Orthopedic Surgery Additional Past Surgical History / Comment(s): ectopic surg., carpal tunnel surg., bilateral knee surg., BILATERAL CATARACT REMOVED Past Anesthesia/Blood Transfusion Reactions: No Reported Reaction Date of Last Stent Placement:: - Past Psychological History: No Psychological Hx Reported Smoking Status: Current every day smoker Past Alcohol Use History: None Reported Past Drug Use History: None Reported - Past Family History Mother Family Medical History: Cancer Additional Family Medical History / Comment(s): LUNG Medications and Allergies Home Medications Medication Instructions Recorded Confirmed Type Aspirin 81 mg PO DAILY chew 10/16/17 05/24/21 Rx Isosorbide Mononitrate ER [Imdur] 30 mg PO DAILY #30 tab.er.24h 11/01/18 05/24/21 Rx Metoprolol Tartrate [Lopressor] 25 mg PO BID #60 tab 11/01/18 05/24/21 Rx Atorvastatin [Lipitor] 80 mg PO HS 05/25/20 05/24/21 History Cetirizine HCl 10 mg PO HS 05/25/20 05/24/21 History Cholecalciferol (Vitamin D3) 125 mcg PO DAILY 05/25/20 05/24/21 History [Vitamin D3] Meloxicam [Mobic] 7.5 mg PO BID 05/25/20 05/24/21 History Acetaminophen [Tylenol] 650 mg PO Q6H PRN #12 05/26/20 05/14/21 Rx Allergies Allergy/AdvReac Type Severity Reaction Status Date / Time Penicillins Allergy Anaphylaxis Verified 05/14/21 15:11 bacitracin AdvReac blisters Verified 05/14/21 15:11 [From Neosporin ([id number])] bacitracin zinc AdvReac blisters Verified 05/14/21 15:11 [From Neosporin ([id number])] ketorolac tromethamine AdvReac Nausea & Verified 05/14/21 15:11 [From Toradol] Vomiting neomycin sulfate AdvReac blisters Verified 05/14/21 15:11 [From Neosporin ([id number])] polymyxin B AdvReac blisters Verified 05/14/21 15:11 [From Neosporin ([id number])] Sulfa (Sulfonamide AdvReac localized Verified 05/14/21 15:11 Antibiotics) eye swelling from drops tetanus immune globulin AdvReac localized Verified 05/14/21 15:11 swelling Surgical - Exam Vital Signs Temp Pulse Resp BP Pulse Ox 98.5 F 66 16 147/68 95 05/24/21 14:48 05/24/21 14:48 05/24/21 14:48 05/24/21 14:48 05/24/21 14:48 - General no distress - Eyes normal ocular movement - ENT no hearing loss, no congestion - Neck trachea midline - Respiratory normal respiratory effort, clear to auscultation - Cardiovascular Heart Sounds: normal: S1, S2 - Abdomen Abdomen: soft - Integumentary normal turgor - Neurologic no disoriented, no combative - Musculoskeletal normal gait - Psychiatric oriented to time, oriented to person, oriented to place, speech is normal, memory intact Breast Exam: BRA: 42C Inspection: grade 2/3 ptosis palpation: right breast: Multi-positional exam fibrocystic changes, nodule upper outer quadrant approximately 3 x 3 cm in size Right axilla: No adenopathy of concern Left breast: Multiple gestational exam fibrocystic changes no dominant masses or nodules of concern Left axilla: No adenopathy of concern Results Mammogram and ultrasound reviewed with Dr. Underwood Assessment and Plan Assessment: Impression: 1.Abnormal right breast mammogram palpable mass right breast 2. Nicotine dependence 3. Intermittent bronchitis 4. History of myocardial infarction 2 Plan: 1. Ultrasound-guided core biopsy right breast 2. Medical management of medical conditions 3. Follow-up after ultrasound-guided core biopsy Risks and benefits of the procedure discussed with the patient. She understands and wishes to proceed. Risks include but are not limited to bleeding, infection. Cc: Dr. Bernal
== END ==
LOC: WWCWWP 14:37
PROVIDERS: ATTEND Surgery
DX: N63.10 Unspecified lump in the right breast, unspecified quadrant (principal); I25.2 Old myocardial infarction; J40 Bronchitis, not specified as acute or chronic; F17.210 Nicotine dependence, cigarettes, uncomplicated; I10 Essential (primary) hypertension; E78.00 Pure hypercholesterolemia, unspecified; E78.5 Hyperlipidemia, unspecified; M19.90 Unspecified osteoarthritis, unspecified site; Z79.82 Long term (current) use of aspirin; Z79.899 Other long term (current) drug therapy; Z88.0 Allergy status to penicillin; Z88.2 Allergy status to sulfonamides; Z88.7 Allergy status to serum and vaccine; Z88.1 Allergy status to other antibiotic agents; Z88.6 Allergy status to analgesic agent

== ENCOUNTER → 2021-05-25 | Day surgery (SDC) | payer MEDICARE, OTHER ==
[2021-05-25 10:52] VITALS: RESP 18; TEMP 98.5
[2021-05-25 12:14] VITALS: BP 151/79; PULSE 65
--- NOTE | 2021-05-25 12:17 | USB ---
EXAMINATION TYPE: US biopsy breast VAD RT, MG diagnostic mammo RT wo CAD DATE OF EXAM: 05/25/2021 CLINICAL HISTORY: R92.8, Abnormal mammogram. Abnormal ultrasound. TECHNIQUE: Ultrasound guided core biopsy of right breast with clip placement follow-up diagnostic two-view mammogram.. COMPARISON: Right breast ultrasound and bilateral mammogram April 24, 2021. FINDINGS: The procedure of ultrasound guided core biopsy was explained to the patient. Benefits, alternatives, and risks were discussed. An informed consent was then obtained. The patient was placed in supine positioning for imaging and for the procedure. Preprocedure ultrasound redemonstrates irregular marginated hypoechoic 2.3 cm mass at 10:00 position zone BC in the right breast. Overlying skin is cleansed with Betadine. Lidocaine was used as anesthetic into the skin and deeper tissue. Lidocaine with epinephrine is used as anesthetic in the deeper tissue up to the mass. The overlying skin was prepped and draped in usual sterile fashion. Under ultrasound guidance, a vacuum assisted biopsy gun device was used to obtain 2 core samples. Following this, a biopsy clip was left in lesion. The patient tolerated the procedure well without any immediate complication. The patient was kept in the radiology department for short stay after the procedure and then discharged home in stable condition. Postprocedure mammogram shows successful deployment of ribbon clip in the sampled mass. IMPRESSION: Successful, uncomplicated ultrasound guided core biopsy of area of concern in the right breast, full pathology results to follow. High index of suspicion noted at time of procedure. 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 See Surgical Pathology Cancer Case Summary and comment. Recommendation Surgical consult of the right breast. MTDD
== END ==
LOC: RADUSWWP 10:29
PROVIDERS: ATTEND Surgery
DX: C50.911 Malignant neoplasm of unspecified site of right female breast (principal); Z88.6 Allergy status to analgesic agent; Z88.1 Allergy status to other antibiotic agents; Z88.0 Allergy status to penicillin; Z88.2 Allergy status to sulfonamides
CPT/HCPCS: 88305; 88342; 88341; 77065; 19083; A4648; J2001

== ENCOUNTER → 2021-05-31 | Outpatient (CLI) | payer MEDICARE, OTHER ==
--- NOTE | 2021-05-31 13:33 | P.PN ---
Subjective Progress Note Date: 05/31/21 Principal diagnosis: Right breast stage II invasive ductal carcinoma Candida is a 65-year-old white female status post ultrasound-guided core biopsy of the right breast on . Pathology revealed invasive high-grade ductal carcinoma G3 with focal high-grade DCIS. This was ER/WI negative HER-2 is pending. The stages either 2 a collar to be depending on the HER-2 status. The patient tolerated the breast biopsy well. Family History: mother: lung cancer Objective - Constitutional General appearance: Present: cooperative - EENT Eyes: Present: EOMI ENT: Present: hearing grossly normal - Neck Neck: Present: normal ROM - Respiratory Respiratory: bilateral: CTA - Cardiovascular Heart sounds: normal: S1, S2 - Integumentary Integumentary Comment(s): Biopsy site clean and dry, no evidence of infection - Musculoskeletal Musculoskeletal: Present: gait normal - Psychiatric Psychiatric: Present: A&O x's 3, appropriate affect, intact judgment & insight Assessment and Plan Assessment: Impression: Invasive ductal carcinoma stage II A or B right breast Plan: 1. Presentation case at tumor board 2. Patient to be seen by medical oncology 3. Patient is interested in mastectomy with reconstruction will have patient have appointment with Dr. Javier 4. Patient to follow up after presentation at tumor board CC: Dr. Bernal
== END ==
LOC: WWCWWP 11:59
PROVIDERS: ATTEND Surgery
DX: C50.911 Malignant neoplasm of unspecified site of right female breast (principal); Z17.1 Estrogen receptor negative status [ER-]; F17.200 Nicotine dependence, unspecified, uncomplicated; Z88.0 Allergy status to penicillin; Z88.2 Allergy status to sulfonamides; Z88.1 Allergy status to other antibiotic agents; Z88.5 Allergy status to narcotic agent; Z88.7 Allergy status to serum and vaccine

== ENCOUNTER → 2021-06-06 | Outpatient (CLI) | payer MEDICARE, OTHER ==
--- NOTE | 2021-06-07 10:43 | ECHOF ---
Referral Reason:Pre chemo MEASUREMENTS -------- HEIGHT: 162.6 cm WEIGHT: 89.4 kg BP: RVIDd: 3.0 cm (< 3.3) IVSd: 1.2 cm (0.6 - 1.1) LVIDd: 3.8 cm (3.9 - 5.3) LVPWd: 1.2 cm (0.6 - 1.1) IVSs: 1.5 cm LVIDs: 3.5 cm LVPWs: 1.1 cm LA Diam: 3.7 cm (2.7 - 3.8) LAESV Index (A-L): 28.91 ml/m MV EXCURSION: 17.354 mm (> 18.000) MV EF SLOPE: 60 mm/s (70 - 150) EPSS: 0.5 cm MV E Stewart: 0.58 m/s MV DecT: 337 ms MV A Stewart: 0.79 m/s MV E/A Ratio: 0.73 RAP: 5.00 mmHg RVSP: 13.09 mmHg FINDINGS -------- Sinus rhythm. This was a technically adequate study. LV size, wall thickness and systolic function are normal, with an EF greater than 55%. The left gerald tricular size is normal. The right ventricle is normal in size. LA is midly dilated 29-33ml/m2. The aortic valve was not well visualized. Mild mitral regurgitation is present. Mild tricuspid regurgitation present. Right ventricular systolic pressure is normal at < 35 mmHg. The pulmonic valve was not well visualized. There is no pericardial effusion. CONCLUSIONS -------- 1. LV size, wall thickness and systolic function are normal, with an EF greater than 55%. 2. The left ventricular size is normal. 3. The right ventricle is normal in size. 4. LA is midly dilated 29-33ml/m2. 5. The aortic valve was not well visualized. 6. Mild mitral regurgitation is present. 7. Mild tricuspid regurgitation present. 8. The pulmonic valve was not well visualized. 9. There is no pericardial effusion. ALTERATION MANAGER: Patricia Valera, NARENDRA
== END | disposition home or self-care (01) ==
LOC: RADECHMAIN 14:02
PROVIDERS: ATTEND Internal Medicine Hematology & Oncology
DX: Z01.818 Encounter for other preprocedural examination (principal); I08.1 Rheumatic disorders of both mitral and tricuspid valves
CPT/HCPCS: 93306

== ENCOUNTER → 2021-06-28 | Outpatient (CLI) | payer MEDICARE, OTHER ==
[2021-06-28 10:00] VITALS: BP 148/81; PULSE 89; RESP 16; TEMP 98
--- NOTE | 2021-06-28 10:54 | P.PN ---
Subjective Progress Note Date: 06/28/21 Principal diagnosis: BMI 31.6 Candida is a 65-year-old white female who underwent a bilateral mammogram on . This revealed a lesion of concern in the upper outer quadrant of the right breast. She subsequently underwent an ultrasound of the area which revealed a 0.8 x 2.3 cm oval irregular solid taller than wide lesion at 10:00. She is able to feel the lesion in her breast for 2 months. It has not changed in size. It is painful. She does not feel any lumps masses or nodules of concern in the left breast. She is not complaining of any nipple discharge. She's not had any recent trauma or infection in the breast. She did have an open biopsy of the left breast in the remote past which was benign. An ultrasound core biopsy of the area was performed on which was invasive high-grade ductal carcinoma, grade 3 with high-grade DCIS. This was triple negative. A PET scan was performed on [id number] which did not show evidence of metastatic disease. She was seen in consultation by medical oncology and neoadjuvant chemotherapy was recommended. The patient's case was presented at tumor board and again medical oncology suggested neoadjuvant chemotherapy. This has been discussed in detail with the patient and the patient understands that she will need chemotherapy but wishes to have surgery performed prior. Underwent echocardiogram on [id number]. We are awaiting cardiac clearance. Caffeine: 1 cup coffee/day nicotine: 5 cigarettes per day Chocolate: rare Hormonal history: Menarche: 9 M1 1 terminated secondary to hyperthyroid breast fed: no, age at first : 21 menopause: 36 BCP: 2 years hormones: none Surgical History: carpal tunnel Ganglion cyst removal Bilateral knee cataract tubaligation Medical history: spinal arthritis DJD thyroid ablation radioactive iodine HTN high cholesterol Myocardial infarction 2; last one 2018 Social History: Nicotine: 5 cigarettes per day, smoked since alcohol: none drugs: none - Constitutional Constitutional: Denies chills, Denies fever - EENT Eyes: denies blurred vision, denies pain Ears: deny: decreased hearing, tinnitus Ears, nose, mouth and throat: Denies headache, Denies sore throat - Breasts Breasts: bilateral: as per HPI - Cardiovascular Cardiovascular: Denies chest pain, Denies shortness of breath - Respiratory Respiratory: Denies cough - Gastrointestinal Gastrointestinal: Denies abdominal pain, Denies diarrhea, Denies nausea, Denies vomiting - Genitourinary (Female) Genitourinary: Reports kidney stones, Denies dysuria, Denies hematuria - Menstruation Menstruation: Reports postmenopausal - Musculoskeletal Musculoskeletal: Reports as per HPI - Integumentary Integumentary: Denies pruritus, Denies rash - Neurological Neurological: Denies numbness, Denies weakness - Psychiatric Psychiatric: Denies anxiety, Denies depression - Endocrine Endocrine: Denies fatigue, Denies weight change - Hematologic/Lymphatic Comment: aspirin - Allergic/Immunologic Allergic/Immunologic: Reports seasonal allergies Objective - Vital Signs Vital signs: Vital Signs Temp 98.0 F 06/28/21 09:56 Pulse 89 06/28/21 09:56 Resp 16 06/28/21 09:56 BP 148/81 06/28/21 09:56 Pulse Ox Intake & Output 06/27/21 06/28/21 06/28/21 18:59 06:59 18:59 Weight 88.904 kg - Exam BMI 31.6 - Constitutional General appearance: Present: cooperative - EENT Eyes: Present: EOMI ENT: Present: hearing grossly normal - Neck Neck: Present: normal ROM - Respiratory Respiratory: bilateral: CTA - Cardiovascular Rhythm: regular Heart sounds: normal: S1, S2 - Gastrointestinal General gastrointestinal: Present: soft - Integumentary Integumentary: Present: normal turgor - Musculoskeletal Musculoskeletal: Present: gait normal - Psychiatric Psychiatric: Present: A&O x's 3, appropriate affect, intact judgment & insight - Additional findings Additional findings: Breast Exam: BRA: 42C inspection: bilateral grade 2 ptosis palpation: right breast: Multi-positional exam fibrocystic changes, nodule upper outer quadrant approximately 3 x 3 cm in size Right axilla: No adenopathy of concern Left breast: Multi-positional exam fibrocystic changes no dominant masses or nodules of concern Left axilla: No adenopathy of concern Assessment and Plan Assessment: Impression: 1. Right breast invasive ductal carcinoma grade 3 triple negative T2 N0 M0 stage II 2. Nicotine dependence/patient is stop smoking between now and the surgery 3. Intermittent bronchitis 4. History of myocardial infarction 2 Plan: 1. Patient's case has been presented at tumor board and he she has seen medical oncology, patient was given the option of neoadjuvant chemotherapy with immunotherapy however at this time she has declined she understands she will receive chemotherapy after surgery 2. Patient has seen plastic surgery and wishes to have a right mastectomy with immediate subpectoral implant reconstruction, she will also have a right sentinel node biopsy, possible axillary node dissection 3. Patient to have medical clearance from cardiology and Dr. Bernal CC: Dr. Bernal Risks and benefits of the procedure discussed with the patient. Risks include but are not limited to bleeding, infection, reaction to the anesthetic. She understands the recommendation for neoadjuvant chemotherapy but has declined it at this time. She understands that she may not be able to obtain the immunotherapy if she does not have it neoadjuvantly, she understands that if her nodes were to be positive she may be recommended to have radiation therapy which could be avoided possibly with neoadjuvant chemotherapy. Additionally she understands that a lumpectomy may be a possibility and she is not interested in the lumpectomy. I discussed her case at length with both Dr. Poon at tumor board, and Dr. Gautam and discussed the fact that at this time the patient understands she will need chemotherapy but has declined receiving it neoadjuvantly. Risk of sentinel node biopsy and axillary node dissection were discussed with the patient as well. Risks include but are not limited to bleeding, infection, reaction to the anesthetic. Additionally possible numbness to the inner arm, lymphedema, or injury to the thoracodorsal or long thoracic nerves were noted. Patient understands and at this time again has declined neoadjuvant chemotherapy and wishes to proceed with surgical therapy first. CC: Dr. Bernal
== END ==
LOC: WWCWWP 09:35
PROVIDERS: ATTEND Surgery
DX: C50.911 Malignant neoplasm of unspecified site of right female breast (principal); J40 Bronchitis, not specified as acute or chronic; I25.2 Old myocardial infarction; I10 Essential (primary) hypertension; E78.00 Pure hypercholesterolemia, unspecified; M47.819 Spondylosis without myelopathy or radiculopathy, site unspecified; Z87.891 Personal history of nicotine dependence; Z88.0 Allergy status to penicillin; Z88.1 Allergy status to other antibiotic agents; Z88.4 Allergy status to anesthetic agent; Z91.09 Other allergy status, other than to drugs and biological substances; Z88.7 Allergy status to serum and vaccine; Z88.2 Allergy status to sulfonamides

== ENCOUNTER 2021-07-03 07:07 | Day surgery (SDC) | payer MEDICARE, OTHER ==
[2021-06-26 13:52] VITALS: BMI 32.5
[~2021-07-03 07:07] MED LIST: DEXAMETHASONE SOD PHOSPHATE 4 MG/ML 1 ML VIAL IV ONE; HEPARIN SODIUM,PORCINE/PF 5,000 UNIT/0.5 ML SYRINGE SQ PRN; LIDOCAINE 1% (10MG/ML) FOR IV START INTRADERMA PRN; ONDANSETRON 4 MG/2 ML VIAL IVP ONE; Pre Op ABX Message 1 EACH MISC MISCELLANE ONE
[2021-07-03 08:26] LABS: Glucose,Whole Blood 94 mg/dL (75-99)
[2021-07-03] MEDS: LACTATED RINGERS 1,000 ML IV SCH ×2 (08:26→14:01)
[2021-07-03] MEDS ORDERED: CLINDAMYCIN 600 MG in DEXTROSE 5% IN WATER 50 ML IVPB STA ×2 (08:51)
--- NOTE | 2021-07-03 11:04 | P.NAPBC ---
[facility] - [facility] Was patient's case review presented at [facility] tumor board? If no, comment.: Yes Was patient's pathology reviewed at [facility]? If no, comment.: Yes Was breast conservation surgery offered? If no, comment.: Yes (patient declined neoadjuvant chemotherapy) Was sentinel node biopsy offered? If no, comment.: Yes Was diagnosis confirmed by percutaneous core biopsy? If no, comment.: Yes Is patient mastectomy patient?: Yes Was a preop referral to reconstructive surgeon offered?: Yes [facility] Comments: [id number] stage II Clinical Stage: stageII
[2021-07-03] MEDS ORDERED: NALOXONE 0.4 MG/ML 1 ML VIAL IV PRN (11:17)
[2021-07-03] MEDS ORDERED: ONDANSETRON 4 MG/2 ML VIAL IVP PRN (11:17)
[2021-07-03] MEDS ORDERED: MELATONIN 3 MG TABLET PO PRN (11:17)
[2021-07-03] MEDS ORDERED: HYDROmorphone 1 MG/ML 1 ML SYRINGE IVP PRN (11:17)
[2021-07-03] MEDS ORDERED: HYDROcodone/APAP 5-325MG 1 EACH TAB PO PRN (11:17)
--- NOTE | 2021-07-03 11:17 | P.OP ---
Date of Procedure: 07/03/21 Preoperative Diagnosis: right breast cancer Postoperative Diagnosis: same Procedure(s) Performed: right mastectomy, sentinal node biopsy Anesthesia: WEI Surgeon: Lanny Moya Estimated Blood Loss (ml): 30 IV fluids (ml): 800 Pathology: other (right breast and right axillary node biopsy) Condition: stable Disposition: same day Indications for Procedure: right breast cancer Operative Findings: dense breast tissue Description of Procedure: Candida is a 66 year old white female with a diagnosis of a right breast cancer, stage II. She was given the option of neoadjuvant chemotherpay which she d eclined. She wished for a right mastectomy and sentinal node biopsy, possible dissection. The patient had injection of periaerolar radioactive substance in the preop area. A Lencho counter was used to check and the radioactive substance had traveled to the axilla. Following induction of anesthia the breast and axilla were prepped and draped in the usual fashion. The axilla was approached first. Using the Lencho counter the area of greatest radioactivity was noted. An incision was made over that area. Dissection was carried down to the radioactive node. It was removed. The 10 second count was 1094, the background count was 27. No other palpable or radioactive nodes were noted. The deep tissues wre closed using 3-0 vicryl suture, and the skin was closed using 4-0 monocryl. The breast was approached. A circumaerolar incision was used to do the dissection. A skin sparing mastecomy was preformed dissecting the breast from the subcutaneous tissue to the chest wall circumferentially. The breast was removed from the pectoralis muscle using the electrocautery device and the harmonic scalpel. After we were assured that hemostasis was attained the wound was well irrigated. Dr. Debra miguel entered to place the gallery host.
[2021-07-03] MEDS ORDERED: LACTATED RINGERS 1,000 ML IV ONE (11:21)
[2021-07-03] MEDS: HYDROmorphone 0.5 MG/0.5 ML SYRINGE IVP PRN ×3 (12:03→12:38)
--- NOTE | 2021-07-03 12:29 | NM ---
EXAMINATION TYPE: NM sentinel node injection DATE OF EXAM: 07/03/2021 COMPARISON: 05/25/2021 HISTORY: 66-year-old female biopsy-proven right breast cancer. TECHNIQUE AND FINDINGS: The procedure of sentinel lymph node injection was explained to the patient. The benefits, alternatives, and risks were discussed. An informed consent was then obtained. Overlying skin is cleaned with sterile alcohol. Following this, 598 uCi Tc99m Tilmanocept was inject ed in the upper outer aspect of the right nipple intradermally. The patient tolerated the procedure well without any immediate complication. The patient was kept in the radiology department for short stay after the procedure and then taken to surgery for surgical p rocedure what is presumed intraoperative gamma probe will be used for sentinel lymph node detection. IMPRESSION: Right breast radiotracer injection for sentinel node localization as above.
[2021-07-03 14:43] VITALS: RESP 16
[2021-07-03] MEDS: CLINDAMYCIN 600 MG in DEXTROSE 5% IN WATER 50 ML IVPB SCH ×4 (14:59→21:05)
--- NOTE | 2021-07-03 15:14 | OP ---
OPERATIVE REPORT DATE OF SURGERY: July 03, 2021. SURGEON: Serg Dunn M.D. PREOPERATIVE DIAGNOSES: 1. Acquired absence right breast. 2. Right breast cancer. POSTOPERATIVE DIAGNOSES: 1. Acquired and absence right breast. 2. Right breast cancer. OPERATIVE PROCEDURE: 1. Immediate reconstruction right breast following mastectomy with insertion of tissue abstract checker and subsequent outpatient expansion. 2. Implantation of reconstructive graft for right breast reconstruction. OPERATIVE INDICATIONS: Patient is a 66-year-old female who has invasive cancer involving the right breast. The patient has a past history significant for left breast cancer treated by lumpectomy, axillary lymph node dissection, radiation treatment. The patient has elected to proceed with mastectomy for the right breast and desires reconstruction. She was seen and evaluated in consultation for this purpose, has elected upon a tissue abstract checker style staged reconstruction technique. The patient understands potential risks and complications of procedures and has requested I perform the surgery today. OPERATIVE PROCEDURE SUMMARY: The patient is seen in the preoperative area, markings made, procedure reviewed. All questions answered. She is transported to the operating room where she was placed in supine position. Following induction of general tracheal anesthesia, the patient is prepped and draped in usual fashion. Dr. Moya then proceeded with the sentinel lymph node biopsy and then right mastectomy. Once these procedures were completed I entered the operative suite, the patient was in supine position under general tracheal anesthesia. Sponge and needle counts prior to the procedure were correct. The mastectomy wound was open with no active bleeding. Reconstruction was now initiated by identifying the pectoralis muscle where it joined the chest wall on the lateral aspect. Loose areolar tissue divided here with cautery allowing entry into the potential plane between the pectoralis major and minor muscles which was bluntly developed. Cauterization was then used to dissect and separate pectorals major muscle from rib structures but not sternal structures medially and then from all rib attachments inferiorly. To obtain sufficient muscle coverage, required recruitment of the distal and muscle tissue inferomedially, rectus abdominis muscle fascia inferior laterally. The external abdominal oblique muscle and fascia and laterally serratus anterior muscle and fascia were all elevated through this technique. Once sufficient size submuscular reconstructive pocket was created, dissection stopped. Irrigation was performed. Hemostasis maintained with cautery. Excellent hemostasis was obtained. The cavity was sized and a tissue abstract checker opened on the field. The abstract checker was from the Filmaster, model 133SFX measuring 450 mL, reference #[id number], serial #[id number]. The device was only handled by the surgeon after first changing gloves. All air extracted from the device. It was instilled with 50 mL of 0.9 normal saline. Was also irrigated with saline. The tissue abstract checker was inserted in the reconstructive space created and oriented under direct vision. Once optimally positioned, the abstract checker was filled to a final volume of 200 mL using normal saline. The muscle flap could not be closed over the abstract checker without significant tension at this point, therefore reconstructive graft was opened on the field. SurgiMend measuring 10 x 15 cm thin and fenestrated was opened on the field. Once revitalized, room temperature saline was inserted in the reconstructive cavity deep to the muscle flap tissue but above the abstract checker and oriented in a modified inferior lateral sling fashion. Reconstructive graft and muscle flaps were now inset to each other using interrupted and short running 2-0 Vicryl sutures providing complete coverage of the abstract checker. The entire piece of SurgiMend was used and 19 round Ad channel drain inserted in the surgical field, brought through a separate stab incision and the right anterior lower chest wall and sutured in place with 2-0 Prolene. The mastectomy wounds performed in circumareolar fashion are closed in a pursestring fashion using deep dermal 2-0 Prolene pursestring followed by finer approximation of the dermis using interrupted inverted 4-0 Monocryl and completing the superficial dermal epidermal closure with rissa. Surgical gandhi cleansed with saline, dried and postop bandages placed using Kerlix squares secured with 3 Medipore tape. The drains connected to close bulb suction patent. The patient was awakened in the operating room, extubated, and transferred to recovery in good condition with stable vital signs. ESTIMATED BLOOD LOSS: 30 mL. There were no complications. The final fill of the abstract checker was 200 mL. MMODL / IJN: [id number] /
[2021-07-03] MEDS: DEXTROSE 5%-0.45% NACL 1,000 ML IV SCH (15:28)
[2021-07-03] MEDS: HEPARIN SODIUM,PORCINE/PF 5,000 UNIT/0.5 ML SYRINGE SQ SCH (16:12)
[2021-07-04] MEDS: HEPARIN SODIUM,PORCINE/PF 5,000 UNIT/0.5 ML SYRINGE SQ SCH ×2 (00:14→08:18)
[2021-07-04] MEDS: CLINDAMYCIN 600 MG in DEXTROSE 5% IN WATER 50 ML IVPB SCH ×2 (03:17)
[2021-07-04] MEDS: DEXTROSE 5%-0.45% NACL 1,000 ML IV SCH (04:06)
[2021-07-04 08:03] VITALS: BP 123/56; PULSE 82; TEMP 98.7
[2021-07-04 08:25] LABS: Basophils % (A) 0 %; Eosinophils % (A) 0 %; HCT 41.5 % (34.0-46.0); Lymphocytes # (A) 1.7 k/uL (1.0-4.8); Lymphocytes % (A) 17 %; MCH 29.8 pg (25.0-35.0); MCHC 31.4 g/dL (31.0-37.0); MCV 95.1 fL (80.0-100.0); Mean Platelet Volume 7.2; Monocytes # (A) 0.3 k/uL (0-1.0); Monocytes % (A) 3 %; Neutrophils % (A) 79 %; Platelet Count 229 k/uL (150-450); RBC 4.36 m/uL (3.80-5.40); RDW 13.6 % (11.5-15.5); WBC 10.2 k/uL (3.8-10.6)
--- NOTE | 2021-07-04 09:27 | P.PN ---
Subjective Progress Note Date: 07/04/21 Principal diagnosis: Right breast cancer/postop day #1 mastectomy with subpectoral asbestos abatement technician placement The patient is a 66-year-old white female postop day #1 right simple mastectomy with axillary node sampling and subpectoral implant asbestos abatement technician. Postprocedure she is doing well without complaints. Her drainage is minimal. Objective - Vital Signs Vital signs: Vital Signs Temp 98.7 F 07/04/21 08:00 Pulse 82 07/04/21 08:00 Resp 16 07/04/21 08:00 BP 123/56 07/04/21 08:00 Pulse Ox 95 07/04/21 08:00 Intake & Output 07/03/21 07/04/21 07/04/21 18:59 06:59 18:59 Intake Total 1654 100 Output Total 230 1140 503 Balance 1424 -1040 -503 Weight 88.3 kg Intake: IV 1654 Oral 100 Output: Drainage 0 0 3 Right Breast 0 0 3 Urine 200 1140 500 Uretheral (Szymanski) 120 500 Estimated Blood Loss 30 Other: Voiding Method Indwelling Catheter # Voids 1 - Constitutional General appearance: Present: cooperative - EENT Eyes: Present: EOMI ENT: Present: hearing grossly normal - Neck Neck: Present: normal ROM - Respiratory Respiratory: bilateral: CTA - Cardiovascular Heart sounds: normal: S1, S2 - Integumentary Integumentary Comment(s): Incision axilla and breast clean and dry MIRIAM minimal serous drainage Integumentary: Present: normal turgor - Psychiatric Psychiatric: Present: A&O x's 3, appropriate affect, intact judgment & insight - Labs CBC & Chem 7: 07/04/21 07:49 Labs: Abnormal Lab Results - Last 24 Hours (Table) 07/04/21 Range/Units 07:49 Neutrophils # 8.0 H (1.3-7.7) k/uL Assessment and Plan Assessment: Impression: 66-year-old white female status post right mastectomy with subpectoral asbestos abatement technician placement and right axillary node sampling postop day #1 doing well Plan: Discharge patient home Teach patient drain care Follow-up with Dr. Linn in 1 week
--- NOTE | 2021-07-04 09:33 | P.DS ---
Providers Date of admission: 08-03-21 Expected date of discharge: 07/04/21 Attending physician: Lanny Moya Consults: 07/03/21 11:21 Consult Physician Routine Consulting Provider: Jovani Ledbetter Consult Reason/Comments: medical managment Do you want consulting provider notified?: Yes Primary care physician: [facility] Course: The patient is a 66-year-old white female who underwent a right simple mastectomy with sentinel node sampling and subpectoral implant code enforcement officer on . Post procedure she is doing well without difficulty. Plan - Discharge Summary Discharge Rx Participant: Yes New Discharge Prescriptions: No Action Aspirin 81 mg PO DAILY chew Isosorbide Mononitrate ER [Imdur] 30 mg PO DAILY #30 tab.er.24h Metoprolol Tartrate [Lopressor] 25 mg PO BID #60 tab Meloxicam [Mobic] 7.5 mg PO BID PRN PRN Reason: OA Pain Cetirizine HCl 10 mg PO HS Atorvastatin [Lipitor] 80 mg PO HS Levothyroxine Sodium [Synthroid] 25 mcg PO DAILY Acetaminophen [Tylenol] 500 - 1,000 mg PO Q6H PRN PRN Reason: Moderate Pain Discharge Medication List Aspirin 81 mg PO DAILY chew 10/16/17 [Rx] Isosorbide Mononitrate ER [Imdur] 30 mg PO DAILY #30 tab.er.24h 11/01/18 [Rx] Metoprolol Tartrate [Lopressor] 25 mg PO BID #60 tab 11/01/18 [Rx] Atorvastatin [Lipitor] 80 mg PO HS 05/25/20 [History] Cetirizine HCl 10 mg PO HS 05/25/20 [History] Meloxicam [Mobic] 7.5 mg PO BID PRN 05/25/20 [History] Levothyroxine Sodium [Synthroid] 25 mcg PO DAILY 06/20/21 [History] Acetaminophen [Tylenol] 500 - 1,000 mg PO Q6H PRN 06/26/21 [History] Follow up Appointment(s)/Referral(s): Lanny Moya MD [STAFF PHYSICIAN] - 1 Week Activity/Diet/Wound Care/Special Instructions: Teach patient drain care; record output daily Do not drive if taking narcotic pain medication May shower after 48 hours Discharge Disposition: HOME SELF-CARE
== END 2021-07-04 12:00 | disposition home or self-care (01) ==
LOC: OR 07:07 → 4FBP 11:40 → OR 07-04 12:00
PROVIDERS: ATTEND Surgery
DX: C50.911 Malignant neoplasm of unspecified site of right female breast (principal); C77.3 Secondary and unspecified malignant neoplasm of axilla and upper limb lymph nodes; I10 Essential (primary) hypertension; E78.2 Mixed hyperlipidemia; I25.10 Atherosclerotic heart disease of native coronary artery without angina pectoris; I25.2 Old myocardial infarction; E07.9 Disorder of thyroid, unspecified; M19.90 Unspecified osteoarthritis, unspecified site; Z87.891 Personal history of nicotine dependence; Z97.3 Presence of spectacles and contact lenses; Z98.49 Cataract extraction status, unspecified eye; Z79.890 Hormone replacement therapy; Z79.82 Long term (current) use of aspirin; Z79.1 Long term (current) use of non-steroidal anti-inflammatories (NSAID); Z79.899 Other long term (current) drug therapy; Z88.2 Allergy status to sulfonamides; Z88.7 Allergy status to serum and vaccine; Z88.8 Allergy status to other drugs, medicaments and biological substances; Z88.0 Allergy status to penicillin
CPT/HCPCS: 85025; 88342; 88307; 88341; 87635; 38792; 19357; 15777; 38525; C1889; C1763; A9520; J1100; J2405; J1170; J1644 ×2

== ENCOUNTER → 2021-07-13 | Outpatient (CLI) | payer MEDICARE, OTHER ==
[2021-07-13 15:06] VITALS: BP 126/75; PULSE 64; RESP 16; TEMP 98.2
--- NOTE | 2021-07-13 15:20 | P.PN ---
Progress Note - Text Progress Note Date: 07/13/21 Candida is 66 year old white female status post right mastectomy and sentinel node biopsy on . Pathology revealed negative margins for the breast cancer. The lesion was approximately 2.3 cm in size. She had 4 lymph nodes removed 1 revealed 3 foci of micrometastatic disease. The micrometastases range from 0.3 mm to 1 mm. The lung the total number of lymph nodes removed before to sentinel one was in axillary and one was an intramammary lymph node. Physical examination: Lungs: Clear Heart: Regular rate and rhythm Incision: Clean and dry, patient's MIRIAM drain was removed by Dr. Javier and has potentially a seroma present which is not bothering the patient at this time Impression/plan: 1. Follow-up medical oncology 2. Follow-up radiation oncology 3. Continue follow with Dr. Javier 4. Follow-up here in 4 months Cc: Dr. Bernal
--- NOTE | 2021-07-13 15:28 | P.PN ---
Progress Note - Text Progress Note Date: 07/13/21 07-13-21 To Whom It May Concern: Candida Villa is a 66-year-old white female who was diagnosed with right breast invasive ductal carcinoma. This was diagnosed via [place] [id number]. The tumor was invasive high-grade ductal carcinoma G3 with high-grade DCIS. It was triple negative. A PET scan was performed on [id number] which did not show evidence of metastatic disease. She was seen in consultation by medical oncology. Treatment was discussed in detail with the patient and the patient understood that she will need chemotherapy but wished a surgery performed prior to chemotherapy. Therefore, she underwent a right breast mastectomy with [place] [id number]. At the present time she has a right breast senior mechanical design engineer in place and this is being filled as per plastic surgery. She will then require chemother apy, and possibly radiation therapy. At the present time she is healing from the recent surgery. Dr. Lanny Moya
== END ==
LOC: WWCWWP 14:38
PROVIDERS: ATTEND Surgery
DX: Z08 Encounter for follow-up examination after completed treatment for malignant neoplasm (principal); Z90.11 Acquired absence of right breast and nipple; Z85.3 Personal history of malignant neoplasm of breast; Z88.0 Allergy status to penicillin; Z88.1 Allergy status to other antibiotic agents; Z88.4 Allergy status to anesthetic agent; Z88.2 Allergy status to sulfonamides; Z91.09 Other allergy status, other than to drugs and biological substances; Z88.7 Allergy status to serum and vaccine

== ENCOUNTER → 2021-07-17 | Outpatient (CLI) | payer MEDICARE, OTHER | LOC: RADONCKCI 11:42 | PROVIDERS: ATTEND Radiology Radiation Oncology | DX: Z53.9 Procedure and treatment not carried out, unspecified reason (principal) ==

== ENCOUNTER 2021-09-06 12:07 | Day surgery (SDC) | payer MEDICARE, OTHER ==
[2021-09-04 10:40] VITALS: BMI 30.7
[~2021-09-06 12:07] MED LIST changes: -HEPARIN SODIUM,PORCINE/PF 5,000 UNIT/0.5 ML SYRINGE SQ PRN; +HYDROmorphone 0.5 MG/0.5 ML SYRINGE IVP PRN; +LACTATED RINGERS 1,000 ML IV SCH; -ONDANSETRON 4 MG/2 ML VIAL IVP ONE; +ONDANSETRON 4 MG/2 ML VIAL IVP PRN
[2021-09-06 13:04] LABS: Basophils % (A) 1 %; Eosinophils # (A) 0.5 k/uL (0-0.7); Eosinophils % (A) 5 %; HCT 44.2 % (34.0-46.0); HGB 14.1 gm/dL (11.4-16.0); Lymphocytes % (A) 33 %; MCH 29.1 pg (25.0-35.0); MCHC 31.8 g/dL (31.0-37.0); MCV 91.5 fL (80.0-100.0); Mean Platelet Volume 7.4; Monocytes # (A) 0.3 k/uL (0-1.0); Monocytes % (A) 4 %; Neutrophils # (A) 5.1 k/uL (1.3-7.7); Neutrophils % (A) 57 %; Platelet Count 312 k/uL (150-450); RBC 4.84 m/uL (3.80-5.40); WBC 9.1 k/uL (3.8-10.6)
[2021-09-06] MEDS ORDERED: SUCCINYLCHOLINE CHLORIDE 100 MG/5 ML SYR IV ONE (13:28)
[2021-09-06] MEDS ORDERED: GLYCOPYRROLATE 0.2 MG/ML 2 ML VIAL ONE (13:28)
[2021-09-06] MEDS ORDERED: LIDOCAINE 1% INJ 10MG/ML (20 ML MDV) ONE (13:28)
[2021-09-06] MEDS ORDERED: ePHEDrine 50 MG/ML 1 ML VIAL ONE (13:28)
[2021-09-06] MEDS ORDERED: MIDAZOLAM 2 MG/2 ML VIAL ONE (13:28)
[2021-09-06] MEDS ORDERED: PHENYLEPHRINE-0.9% NACL SYG 1,000 MCG/10 ML SYRINGE ONE (13:28)
[2021-09-06] MEDS ORDERED: fentaNYL (PF) 50 MCG/ML 2 ML AMP ONE (13:28)
[2021-09-06] MEDS ORDERED: PROPOFOL 10 MG/ML 20 ML VIAL IV ONE (13:28)
[2021-09-06] MEDS ORDERED: SODIUM CHLORIDE 0.9% 50 ML with CLINDAMYCIN 600 MG IV ONE ×2 (14:04)
[2021-09-06] MEDS ORDERED: LACTATED RINGERS 1,000 ML IV ONE (14:12)
[2021-09-06 14:35] VITALS: TEMP 96
[2021-09-06 15:33] VITALS: RESP 18
[2021-09-06 16:04] VITALS: BP 123/63; PULSE 76
--- NOTE | 2021-09-06 16:49 | OP ---
OPERATIVE REPORT DATE OF SURGERY: 09/06/2021. SURGEON: Dr. Serg Dunn. PREOPERATIVE DIAGNOSIS: 1. Open right reconstructed breast wound. 2. Personal history of mastectomy. 3. Personal history of breast cancer. POSTOPERATIVE DIAGNOSIS: 1. Open right reconstructed breast wound with seroma. 2. Personal history of mastectomy. 3. Personal history of breast cancer. OPERATIVE PROCEDURES: 1. Removal of right reconstructed breast tissue stock sheets cleaner inspector without insertion of implant. 2. Revision right reconstructed breast. OPERATIVE INDICATIONS: Patient is a 66-year-old female who has undergone a mastectomy for treatment of right breast cancer with immediate reconstruction via tissue stock sheets cleaner inspector technique in June 2021. The patient's postoperative course has been complicated by developing a wound on the right breast that has increased in size with increased drainage. She has undergone expansions and there is no evidence of infection or significant unhealthy tissue. I have counseled the patient to undergo revision of the reconstructed breast to optimize the reconstruction and eliminate the wound. However, she has decided to have her stock sheets cleaner inspector removed and desires her chest wall flattened. She no longer wants to proceed with reconstruction. The patient is aware of potential risks and complications related to the surgery and has requested I perform the surgery. OPERATIVE PROCEDURE SUMMARY: The patient was seen in the preoperative area, markings made, procedure reviewed, all questions answered. She was transported to the operating room, where she was placed in supine position. Following induction of general tracheal anesthesia, the patient was prepped and draped in the usual fashion. The right breast wound was open with serous drainage. The wound and mastectomy scar area was outlined in elliptical fashion and then the tissue excised following the outline placed, making a full-thickness skin incision with a 10-blade scalpel and then cauterization to excise all soft tissue. This entered the seroma cavity with clear serosanguineous fluid that was completely drained. The seroma cavity benites were excised. Then the muscle flap tissue used to cover the stock sheets cleaner inspector was exposed at this point. Along the lateral border of the muscle flap tissue at the junction where the muscle flap and reconstructive graft were placed, incision was made exposing the stock sheets cleaner inspector. The stock sheets cleaner inspector was removed intact. The cavities were irrigated. Cauterization was performed on the surfaces of the expansion capsule and then additional dissection was required to elevate skin and subcutaneous tissue to create a flattening effect for closure. Extensive dissection was required. Irrigation was now performed. Hemostasis was maintained with cautery. A 19 round Ad channel drain was inserted in the surgical field and brought out through a separate stab incision in the right anterolateral chest wall and sutured in placed with 2-0 Prolene. The drain was placed both deep and superficial to the muscle flap area and then the incision was closed over the drain, approximating the Sana's layer with inverted interrupted 4-0 Monocryl, and then the deep dermis with inverted interrupted 4- 0 Monocryl, and completing the skin closure with subcuticular 3-0 Prolene. Surgical field was cleansed with saline, dried and covered with Steri-Strips and Kerlix. A Kerlix pad was fashioned and held in place with a size 3 mammary support. The patient was then awakened from her anesthetic, extubated in the operating room and transferred to the recovery room in good condition with stable vital signs. The estimated blood loss was 10 mL. There were no complications. MMODL / IJN: [id number] /
== END 2021-09-06 16:40 | disposition home or self-care (01) ==
LOC: OR 12:07
PROVIDERS: ATTEND Plastic Surgery
DX: Z85.3 Personal history of malignant neoplasm of breast (principal)
CPT/HCPCS: 19380; 88305; 85025; 88312; J2250; J1100; J2405; J2001; J3010; J2370; J0330; J2704

== ENCOUNTER → 2021-11-30 | Outpatient (CLI) | payer MEDICARE, OTHER ==
[2021-11-30 11:01] VITALS: BP 146/73; PULSE 64; RESP 18; TEMP 98.4
--- NOTE | 2021-11-30 11:15 | P.PN ---
Subjective Progress Note Date: 11/30/21 Principal diagnosis: Stage II invasive ductal right breast cancer Candida is a 66-year-old white female who underwent a bilateral mammogram on . This revealed a lesion of concern in the upper outer quadrant of the right breast. She subsequently underwent an ultrasound of the area which revealed a 0.8 x 2.3 cm oval irregular solid tolerated white lesion at 10:00. She is able to feel the lesion in her breast for 2 months. It had not changed in size. It was not painful. She did not feel any lumps masses or nodules of concern in the left breast. She was not complaining of any nipple discharge. She'd not had any recent trauma or infection in the breast. She did have an open biopsy of the left breast in the remote past which was benign. A core biopsy was done on 05-25-21 which was positive for an invasive ductal cancer G3. She underwent a right breast mastectomy and SNB with subpectoral implant reconstruction on 07-03-21. One of 2 sentinel lymph nodes was positive for micrometastatic cancer. She developed a seroma after the surgery requiring removal of the implant on 09-06-21. At this time she has no complaints related to any lumps masses or nodules in the left breast. The right chest wall is well-healed. Caffeine: 1 cup coffee/day nicotine: 5 cigarettes per day Chocolate: rare Hormonal history: Menarche: 9 M1 1 terminated secondary to hyperthyroid breast fed: no, age at first : 21 menopause: 36 BCP: 2 years hormones: none Surgical History: carpal tunnel Ganglion cyst removal Bilateral knee cataract tubaligation Medical history: spinal arthritis DJD thyroid ablation radioactive iodine HTN high cholesterol Myocardial infarction 2; last one 2018 Social History: Nicotine: 5 cigarettes per day, smoked since alcohol: none drugs: none - Constitutional Constitutional: Denies chills, Denies fever - EENT Eyes: denies blurred vision, denies pain Ears: deny: decreased hearing, tinnitus Ears, nose, mouth and throat: Denies headache, Denies sore throat - Breasts Breasts: bilateral: as per HPI - Cardiovascular Cardiovascular: Denies chest pain, Denies shortness of breath - Respiratory Respiratory: Denies cough, Denies 7 - Gastrointestinal Gastrointestinal: Denies abdominal pain, Denies diarrhea, Denies nausea, Denies vomiting - Genitourinary (Female) Genitourinary: Reports kidney stones, Denies dysuria, Denies hematuria - Menstruation Menstruation: Reports postmenopausal - Musculoskeletal Musculoskeletal: Reports as per HPI - Integumentary Integumentary: Denies pruritus, Denies rash - Neurological Neurological: Denies numbness, Denies weakness - Psychiatric Psychiatric: Denies anxiety, Denies depression - Endocrine Endocrine: Denies fatigue, Denies weight change - Hematologic/Lymphatic Comment: aspirin - Allergic/Immunologic Allergic/Immunologic: Reports seasonal allergies Objective - Constitutional General appearance: Present: cooperative - EENT Eyes: Present: EOMI ENT: Present: hearing grossly normal - Neck Neck: Present: normal ROM - Respiratory Respiratory: bilateral: CTA - Cardiovascular Heart sounds: normal: S1, S2 - Integumentary Integumentary: Present: normal turgor - Musculoskeletal Musculoskeletal: Present: gait normal - Psychiatric Psychiatric: Present: A&O x's 3, appropriate affect - Additional findings Additional findings: Breast Exam: BRA; 44C inspection: Right chest wall incision clean and dry, left breast grade 2 ptosis Palpation: Right chest wall: Multiple positional exam no evidence of recurrent cancer Right axilla: No adenopathy of concern Left breast: Multi-positional exam fibrocystic changes no dominant masses or nodules of concern Left axilla: No adenopathy of concern Assessment and Plan Assessment: Impression: Right breast invasive ductal carcinoma triple negative, T2 and WA M0 triple negative grade 3, patient status post mastectomy and sentinel node biopsy, patient had subpectoral implant reconstruction and developed a seroma posterior to the implant requiring implant removal. At this time she is ready for chemotherapy and/or radiation therapy Plan: Follow-up radiation oncology Follow-up medical oncology Follow-up here in 4 months Patient will be given a prosthesis for the right breast left breast mammogram in - CC: Dr. Bernal
== END ==
LOC: WWCWWP 10:34
PROVIDERS: ATTEND Surgery
DX: C50.911 Malignant neoplasm of unspecified site of right female breast (principal); F17.210 Nicotine dependence, cigarettes, uncomplicated; E78.00 Pure hypercholesterolemia, unspecified; I10 Essential (primary) hypertension; I25.2 Old myocardial infarction; Z17.1 Estrogen receptor negative status [ER-]; Z90.11 Acquired absence of right breast and nipple; M19.90 Unspecified osteoarthritis, unspecified site; Z88.0 Allergy status to penicillin; Z91.09 Other allergy status, other than to drugs and biological substances; Z88.7 Allergy status to serum and vaccine

== ENCOUNTER → 2021-12-14 | Outpatient (CLI) | payer MEDICARE, OTHER ==
--- NOTE | 2021-12-14 10:39 | CA ---
Transthoracic Echo Report Name: Candida Villa Age: 66 Gender: F : 1955 Exam Date: 12/14/2021 09:59 Exam Location: [place] [facility] Ht (in): 66 Wt (lb): 188 Ordering Physician: Beto Gautam MD Attending/Referring Phys: Wafer Fabrication Technician Nadege Tong RDCS Procedure CPT: Indications: Z01.818 pre chemo Cardiac Hx: Hx of 1 stent with ID. Technical Quality: Good Contrast 1: Total Dose (mL): Contrast 2: Total Dose (mL): MEASUREMENTS (Male / Female) Normal Values 2D ECHO LA Volume 67.5 cm??? 18 - 58 / 22 - 52 cm??? M-MODE Aortic Root Diameter MM 2.9 cm LA Systolic Diameter MM 3.1 cm LA Ao Ratio MM 1.1 MV E Point Septal Separation 2.1 cm AV Cusp Separation MM 1.8 cm DOPPLER AV Peak Velocity 144.5 cm/s AV Peak Gradient 8.4 mmHg MV Area PHT 3.5 cm??? MR Peak Velocity 384.9 cm/s MR Peak Gradient 59.2 mmHg Mitral E Point Velocity 90.8 cm/s Mitral A Point Velocity 86.3 cm/s Mitral E to A Ratio 1.1 MV Deceleration Time 215.4 ms MV E' Velocity 5.7 cm/s Mitral E to MV E' Ratio 15.9 TR Peak Velocity 118.1 cm/s TR Peak Gradient 5.6 mmHg Right Ventricular Systolic Press 10.3 mmHg FINDINGS Left Ventricle Normal Left ventricular size, wall thickness, systolic function with no obvious regional wall motion abnormalities. Normal Left ventricular diastolic filling pattern. Left ventricular ejection fraction is estimated at 55-60 % Grade 2 diastolic dysfunction. Right Ventricle The right ventricle is normal in size and function. Right Atrium The right atrium is normal in size. Left Atrium Moderately increased left atrial volume. Mildly increased left atrial area. Mitral Valve Structurally normal mitral valve without significant stenosis or prolapse. There is mild mitral regurgitation. Aortic Valve Structurally normal aortic valve without significant sclerosis or stenosis. There is no aortic regurgitation. Tricuspid Valve Structurally normal tricuspid valve without significant stenosis. Pulmonary artery systolic pressure is normal. Trace tricuspid regurgitation. Pulmonic Valve Structurally normal pulmonic valve without significant stenosis. There is no pulmonic regurgitation. Pericardium Normal pericardium without effusion. Aorta Normal aortic root dimension. CONCLUSIONS Normal LV size and systolic function Previewed by: Dr. Meek Shane MD (Electronically Signed) Final Date: 14 December 2021 10:38
== END | disposition home or self-care (01) ==
LOC: RADECHMAIN 09:51
PROVIDERS: ATTEND Internal Medicine Hematology & Oncology
DX: Z01.818 Encounter for other preprocedural examination (principal); I08.3 Combined rheumatic disorders of mitral, aortic and tricuspid valves
CPT/HCPCS: 93306

== ENCOUNTER → 2022-06-03 | Outpatient (CLI) | payer MEDICARE, OTHER ==
--- NOTE | 2022-06-03 09:43 | MM ---
Reason for Exam: Hx of breast cancer, mastectomy. Last mammogram was performed 1 year(s) and 1 month(s) ago. Patient History: Menarche at age 9. First Full-Term at age 21. Postmenopausal. Breast cancer, right, age 65. Previous chest radiation therapy at age 66. Previous chemotherapy at age 66. 07/03/2021, Mastectomy on the Right side. Core Biopsy on the Right side. Core Biopsy on the Left side. 05/25/2021, Malignant Core Biopsy on the right side. 03/26/2001, Benign Stereotactic Core Biopsy on the right side. 03/26/2001, Benign Stereotactic Core Biopsy on the left side. 05/09/2022, Radiation Therapy on the right side. Prior Study Comparison: 09/06/2013 Bilateral Screening Mammogram, [facility]. 04/24/2021 Bilateral Diagnostic Mammogram, [facility]. 05/25/2021 Right Diagnostic Mammogram, [facility]. Tissue Density: Left: There are scattered fibroglandular densities. Findings: Analyzed By CAD. Left breast biopsy clip. No suspicious masses calcifications or distortions. Overall Assessment: Benign, BI-RAD 2 Management: Screening Mammogram of the left breast in 1 year. A clinical breast exam by your physician is recommended on an annual basis and results should be correlated with mammographic findings. This exam should not preclude additional follow-up of suspicious palpable abnormalities. Results were given to the patient verbally at the time of exam. Electronically signed and approved by: Allen Hough DO
== END | disposition home or self-care (01) ==
LOC: RADMAMWWP 09:08
PROVIDERS: ATTEND Surgery
DX: Z78.0 Asymptomatic menopausal state (principal); Z85.3 Personal history of malignant neoplasm of breast; Z98.890 Other specified postprocedural states; Z90.11 Acquired absence of right breast and nipple; Z92.3 Personal history of irradiation
CPT/HCPCS: 77065; G0279; 77061

== ENCOUNTER 2022-12-31 19:49 | Observation (INO) | payer MEDICARE, OTHER ==
--- NOTE | 2022-12-31 20:06 | ED ---
General Adult HPI - General Chief complaint: Neuro Symptoms/Deficit Stated complaint: TIA Time Seen by Provider: 12/31/22 19:54 Source: patient, RN notes reviewed Mode of arrival: EMS Limitations: no limitations - History of Present Illness Initial comments: Patient is a pleasant 67-year-old female presenting to the emergency Department with right-sided weakness. Onset of symptoms was a little over an hour ago. Symptoms resolved after less than 15 minutes. Patient had right-sided weakness and paresthesias. Patient has minimal paresthesias resolved. No history of similar symptoms previously. No speech problems. No headache. - Related Data Home Medications Medication Instructions Recorded Confirmed Atorvastatin [Lipitor] 80 mg PO HS 05/25/20 11/30/21 Cetirizine HCl 10 mg PO HS 05/25/20 11/30/21 Meloxicam [Mobic] 7.5 mg PO BID PRN 05/25/20 11/30/21 Levothyroxine Sodium [Synthroid] 25 mcg PO DAILY 06/20/21 11/30/21 Acetaminophen [Tylenol Extra 500 - 1,000 mg PO DIRECTED PRN 09/04/21 11/30/21 Strength] Previous Rx's Medication Instructions Recorded Aspirin 81 mg PO DAILY chew 10/16/17 Isosorbide Mononitrate ER [Imdur] 30 mg PO DAILY #30 tab.er.24h 11/01/18 Metoprolol Tartrate [Lopressor] 25 mg PO BID #60 tab 11/01/18 Allergies Allergy/AdvReac Type Severity Reaction Status Date / Time Penicillins Allergy Anaphylaxis Verified 12/31/22 19:51 adhesive tape AdvReac raw skin Verified 12/31/22 19:51 bacitracin AdvReac blisters Verified 12/31/22 19:51 [From Neosporin ([id number])] bacitracin zinc AdvReac blisters Verified 12/31/22 19:51 [From Neosporin ([id number])] ketorolac tromethamine AdvReac Nausea & Verified 12/31/22 19:51 [From Toradol] Vomiting neomycin sulfate AdvReac blisters Verified 12/31/22 19:51 [From Neosporin ([id number])] polymyxin B AdvReac blisters Verified 12/31/22 19:51 [From Neosporin ([id number])] Sulfa (Sulfonamide AdvReac localized Verified 12/31/22 19:51 Antibiotics) eye swelling from drops tetanus immune globulin AdvReac localized Verified 12/31/22 19:51 swelling cockroach Allergy edema in Uncoded 12/31/22 19:51 eyes dust Allergy edema in Uncoded 12/31/22 19:51 eyes Review of Systems ROS Statement: Those systems with pertinent positive or pertinent negative responses have been documented in the HPI. ROS Other: All systems not noted in ROS Statement are negative. Constitutional: Denies: fever Eyes: Denies: eye pain ENT: Denies: ear pain Respiratory: Denies: cough Cardiovascular: Denies: chest pain Endocrine: Denies: fatigue Gastrointestinal: Denies: abdominal pain Genitourinary: Denies: dysuria Neurological: Reports: as per HPI, weakness Past Medical History Past Medical History: Coronary Artery Disease (CAD), Cancer, Hyperlipidemia, Hypertension, Myocardial Infarction (NC), Osteoarthritis (OA), Thyroid Disorder Additional Past Medical History / Comment(s): NC x3. rt Breast cancer dx 04/2021. Disintegrating joint syndrome, complex migraines - none in few years, environmental allergies. Hx Graves disease. Last Myocardial Infarction Date:: 4-18 History of Any Multi-Drug Resistant Organisms: None Reported Past Surgical History: Breast Surgery, Heart Catheterization, Heart Catheterization With Stent, Orthopedic Surgery Additional Past Surgical History / Comment(s): Cyst exc left breast; mult breast biopsies. ectopic surg. Bilat carpal tunnel surg. bilateral knee arthroscopy, Lt wrist ganglion cyst exc. Bilat Cataracts removed. one cardiac stent, rt mastectomy 07/03/21 Past Anesthesia/Blood Transfusion Reactions: Postoperative Nausea & Vomiting (PONV) Additional Past Anesthesia/Blood Transfusion Reaction / Comment(s): PONV after breast surgery 07/03/21 Date of Last Stent Placement:: 4-18 Past Psychological History: No Psychological Hx Reported Smoking Status: Current every day smoker Past Alcohol Use History: None Reported Past Drug Use History: None Reported - Past Family History Mother Family Medical History: Cancer Additional Family Medical History / Comment(s): LUNG Brother(s) Family Medical History: Cancer Additional Family Medical History / Comment(s): throat cancer General Exam Limitations: no limitations General appearance: alert, in no apparent distress Head exam: Present: atraumatic, normocephalic Eye exam: Present: normal appearance, PERRL, EOMI Neck exam: Present: normal inspection. Absent: tenderness Respiratory exam: Present: normal lung sounds bilaterally Cardiovascular Exam: Present: regular rate, normal rhythm GI/Abdominal exam: Present: soft. Absent: tenderness Extremities exam: Present: normal inspection, full ROM. Absent: tenderness Neurological exam: Present: alert, oriented X3, CN II-XII intact. Absent: motor sensory deficit Expanded Neurological exam: Present: protecting the airway Speech: Present: fluid speech Cranial nerves: EOM's Intact: Normal, Facial Sensation: Normal Sensory exam: Upper Extremity Light Touch: Normal, Lower Extremity Light Touch: Normal Motor strength exam: RUE: 5, LUE: 5, RLE: 5, LLE: 5 Eye Response: (4) open spontaneously Motor Response: (6) obeys commands Verbal Response: (5) oriented Psychiatric exam: Present: normal affect, normal mood Skin exam: Present: normal color Course Vital Signs 12/31/22 12/31/22 12/31/22 19:51 20:38 21:00 Temperature 97.8 F Pulse Rate 82 73 Respiratory 18 20 21 Rate Blood Pressure 174/65 174/65 159/70 O2 Sat by Pulse 98 98 98 Oximetry EKG Findings - EKG Results: EKG: interpreted by ERMD ( L axis ), sinus rhythm, normal QRS, normal ST/T Medical Decision Making - Medical Decision Making Was pt. sent in by a medical professional or institution (, PA, WELT DRAWER, urgent care, hospital, or snf...) When possible be specific @ -No Did you speak to anyone other than the patient for history (EMS, parent, family, police, friend...)? What history was obtained from this source @ - Did you review nursing and triage notes (agree or disagree)? Why? @ -I reviewed and agree with nursing and triage notes Were old charts reviewed (outside hosp., previous admission, EMS record, old EKG, old radiological studies, urgent care reports/EKG's, snf records)? Report findings @ -No old charts were reviewed Differential Diagnosis (chest pain, altered mental status, abdominal pain women, abdominal pain men, vaginal bleeding, weakness, fever, dyspnea, syncope, headache, dizziness, GI bleed, back pain, seizure, CVA, palpatations, mental health, musculoskeletal)? @ -Differential Weakness: Hypoglycemia, shock, sepsis, hyponatremia, anemia, infection, NC, ETOH, adverse medicine reaction, overdose, stroke, this is not meant to be an all-inclusive list. EKG interpreted by me (3pts min.). @ -As above X-rays interpreted by me (1pt min.). @ -2 view chest x-ray shows no acute process CT interpreted by me (1pt min.). @ -Reports reviewed U/S interpreted by me (1pt. min.). @ -None done What testing was considered but not performed or refused? (CT, X-rays, U/S, labs)? Why? @ -None What meds were considered but not given or refused? Why? @ -Consider tPA however patient is symptom-free and resolved and would not benefit from this Did you discuss the management of the patient with other professionals (professionals i.e. , PA, WELT DRAWER, lab, RT, psych nurse, high school social studies tutor, wellness coach, teacher, operations officer, supervisor case loading)? Give summary @ -Case discussed with Dr. Mcgregor, who will admit covering Dr. camara Was smoking cessation discussed for >3mins.? @ -No Was critical care preformed (if so, how long)? @ -No Were there social determinants of health that impacted care today? How? (Homelessness, low income, unemployed, alcoholism, drug addiction, transpor tation, low edu. Level, literacy, decrease access to med. care, senior living, rehab)? @ -No Was there de-escalation of care discussed even if they declined (Discuss DNR or withdrawal of care, Hospice)? DNR status @ -No What co-morbidities impacted this encounter? (DM, HTN, Smoking, COPD, CAD, Cancer, CVA, ARF, Chemo, Hep., AIDS, mental health diagnosis, sleep apnea, morbid obesity)? @ -None Was patient admitted / discharged? Hospital course, mention meds given and route, prescriptions, significant lab abnormalities, going to OR and other pertinent info. @ -Patient reevaluated and remained symptom-free. Patient is updated on results and plan. Patient will be admitted with neurology Undiagnosed new problem with uncertain prognosis? @ -No Drug Therapy requiring intensive monitoring for toxicity (Heparin, Nitro, Insulin, Cardizem)? @ -No Were any procedures done? @ -No Diagnosis/symptom? @ -TIA Acute, or Chronic, or Acute on Chronic? @ -Acute Uncomplicated (without systemic symptoms) or Complicated (systemic symptoms)? @ -default Side effects of treatment? @ -No Exacerbation, Progression, or Severe Exacerbation? @ -No Poses a threat to life or bodily function? How? (Chest pain, USA, NC, pneumonia, PE, COPD, DKA, ARF, appy, cholecystitis, CVA, Diverticulitis, Homicidal, Suicidal, threat to staff... and all critical care pts) @ -Risk to life and bodily functions or weakness and neurological problems - Lab Data Result diagrams: 12/31/22 14:57 12/31/22 14:57 Lab Results 12/31/22 12/31/22 12/31/22 Range/Units 14:57 14:57 14:57 WBC 5.9 (3.8-10.6) k/uL RBC 3.99 (3.80-5.40) m/uL Hgb 12.4 (11.4-16.0) gm/dL Hct 39.2 (34.0-46.0) % MCV 98.3 (80.0-100.0) fL MCH 31.1 (25.0-35.0) pg MCHC 31.6 (31.0-37.0) g/dL RDW 13.7 (11.5-15.5) % Plt Count 205 (150-450) k/uL MPV 7.3 Neutrophils % 54 % Lymphocytes % 32 % Monocytes % 6 % Eosinophils % 7 % Basophils % 1 % Neutrophils # 3.2 (1.3-7.7) k/uL Lymphocytes # 1.9 (1.0-4.8) k/uL Monocytes # 0.3 (0-1.0) k/uL Eosinophils # 0.4 (0-0.7) k/uL Basophils # 0.0 (0-0.2) k/uL PT 9.5 (9.0-12.0) sec INR 0.9 (<1.2) APTT 21.4 L (22.0-30.0) sec Sodium 139 (137-145) mmol/L Potassium 4.1 (3.5-5.1) mmol/L Chloride 106 (98-107) mmol/L Carbon Dioxide 28 (22-30) mmol/L Anion Gap 5 mmol/L BUN 23 H (7-17) mg/dL Creatinine 0.91 (0.52-1.04) mg/dL Est GFR (CKD-EPI)AfAm 76 (>60 ml/min/1.73 sqM) Est GFR (CKD-EPI)NonAf 66 (>60 ml/min/1.73 sqM) Glucose 106 H (74-99) mg/dL Calcium 9.2 (8.4-10.2) mg/dL Total Bilirubin 0.2 (0.2-1.3) mg/dL AST 22 (14-36) U/L ALT 23 (4-34) U/L Alkaline Phosphatase 105 (38-126) U/L Creatine Kinase 56 (30-135) U/L Total Protein 6.4 (6.3-8.2) g/dL Albumin 3.8 (3.5-5.0) g/dL Disposition Clinical Impression: Transient cerebral ischemia Disposition: ADMITTED IP TO THIS HOSP Is patient prescribed a controlled substance at d/c from ED?: No Referrals: Kinza Bernal MD [Primary Care Provider] - 1-2 days Time of Disposition: 21:52
[2022-12-31 20:16] LABS: Basophils % (A) 1 %; Eosinophils # (A) 0.4 k/uL (0-0.7); Eosinophils % (A) 7 %; HCT 39.2 % (34.0-46.0); HGB 12.4 gm/dL (11.4-16.0); Lymphocytes # (A) 1.9 k/uL (1.0-4.8); Lymphocytes % (A) 32 %; MCH 31.1 pg (25.0-35.0); MCHC 31.6 g/dL (31.0-37.0); MCV 98.3 fL (80.0-100.0); Mean Platelet Volume 7.3; Monocytes # (A) 0.3 k/uL (0-1.0); Monocytes % (A) 6 %; Neutrophils # (A) 3.2 k/uL (1.3-7.7); Neutrophils % (A) 54 %; Platelet Count 205 k/uL (150-450); RBC 3.99 m/uL (3.80-5.40); RDW 13.7 % (11.5-15.5); WBC 5.9 k/uL (3.8-10.6)
[2022-12-31 20:27] LABS: ALT 23 U/L (4-34); AST 22 U/L (14-36); African American GFR (CKD) 76 (>60 ml/min/1.73 sqM); Albumin 3.8 g/dL (3.5-5.0); Alkaline Phosphatase 105 U/L (38-126); Anion Gap 5 mmol/L; Blood Urea Nitrogen 23 mg/dL (7-17); Calcium 9.2 mg/dL (8.4-10.2); Carbon Dioxide 28 mmol/L (22-30); Chloride 106 mmol/L (98-107); Creatine Kinase 56 U/L (30-135); Glucose 106 mg/dL (74-99); Non-African American GFR(CKD) 66 (>60 ml/min/1.73 sqM); Potassium 4.1 mmol/L (3.5-5.1); Sodium 139 mmol/L (137-145); Total Bilirubin 0.2 mg/dL (0.2-1.3); Total Protein 6.4 g/dL (6.3-8.2)
[2022-12-31 20:36] LABS: INR 0.9 (<1.2); Partial Thromboplastin Time 21.4 sec (22.0-30.0)
--- NOTE | 2022-12-31 20:36 | XR ---
EXAMINATION TYPE: XR chest 2V DATE OF EXAM: 12/31/2022 8:31 PM COMPARISON: Chest radiographs from 05/25/2020 TECHNIQUE: XR chest 2V Frontal and lateral views of the chest. CLINICAL INDICATION:Female, 67 years old with history of altered mental status; FINDINGS: Lungs/Pleura: There is flattening of the diaphragm with increased lucency of the lungs. No evidence o f pneumothorax, pleural effusion or focal consolidation. Pulmonary vascularity: Unremarkable. Heart/mediastinum: Cardiomediastinal silhouette is unremarkable. Musculoskeletal: No acute osseous pathology. IMPRESSION: 1. No acute cardiopulmonary disease process. 2. COPD changes.
[2022-12-31 20:38] LABS: Prothrombin Time 9.5 sec (9.0-12.0)
--- NOTE | 2022-12-31 21:26 | CT ---
EXAMINATION TYPE: CT brain wo con CT DLP: 1293.8 mGycm, Automated exposure control for dose reduction was used. DATE OF EXAM: 12/31/2022 9:17 PM COMPARISON: MR brain 03/08/2011, CT abdomen 03/08/2011. CLINICAL INDICATION:Female, 67 years old with history of Neuro deficit, acute, stroke suspected, Neur o deficit TECHNIQUE: Brain: Axial CT images of the brain were obtained with coronal and sagittal reformats created and rev iewed. Contrast used: None. Oral contrast used: None. FINDINGS: Brain: Extra-axial spaces: No abnormal extra-axial fluid collections. Ventricular system: Within normal limits Cerebral parenchyma: Hypodense area within the right thalamus and right posterior limb of the interna l capsule. No acute intraparenchymal hemorrhage or mass effect. The remainder of the vazquez-white junc tions are well differentiated. Cerebellum: Unremarkable. Mass effect: No evidence of midline shift. Intracranial vasculature: Atherosclerotic calcifications of the intracranial vessels. Soft tissues: Normal. Calvarium/osseous structures: No depressed skull fracture. Paranasal sinuses and mastoid air cells: Mild scattered paranasal sinus disease. Visualized orbits: Bilateral aphakia IMPRESSION: Right thalamus and the posterior limb of the right internal hypodense lesions which are indeterminat e for acute/subacute CVA.
--- NOTE | 2022-12-31 21:33 | CT ---
EXAMINATION TYPE: CT angio head neck CT DLP: 444.3 mGycm, Automated exposure control for dose reduction was used. DATE OF EXAM: 12/31/2022 9:17 PM COMPARISON: CT head same day.. CLINICAL INDICATION:Female, 67 years old with history of Neuro deficit, acute, stroke suspected; PHH, Neuro deficit TECHNIQUE: Axially acquired helical CT angiogram of the head and neck was obtained with contrast. Axi al images are supplemented with 3D reconstructions which were post-processed at an independent [facility]st [facility]. NASCET criteria used. Contrast used:65ml mL of Isovue 370 with IV Contrast, Oral contrast used: None. FINDINGS: CTA HEAD: No evidence of acute intracranial hemorrhage, mass effect, or midline shift. The ventricles, sulci, a nd cisterns are unremarkable. The visualized portions of the internal carotid arteries, middle cerebral arteries, anterior cerebral arteries, and posterior cerebral arteries are patent. The basilar and vertebral arteries are patent. CTA NECK: Right Carotid System: The common carotid and external carotid arteries are patent. There is approximately 25% stenosis at t he carotid bifurcation secondary to calcified/noncalcified plaquing. The rest of the internal carotid artery is patent. Left Carotid System: The common carotid and external carotid arteries are patent. There is approximately 25% stenosis at t he carotid bifurcation secondary to calcified/noncalcified plaquing. The rest of the internal carotid artery is patent. Vertebral arteries are patent without evidence hemodynamically significant stenosis. There is a three-vessel aortic arch. The origins of the great vessels are patent. No evidence of hemo dynamically significant stenosis. Upper thorax: Mild centrilobular lobular emphysema changes. Right thyroid calcified nodule IMPRESSION: 1. No evidence of dissection of the cervical internal carotid arteries or vertebral arteries or any e vidence of significant stenosis at the carotid bifurcations. 2. No evidence of intracranial high-grade stenosis or intracranial aneurysm.
[2022-12-31] MEDS ORDERED: ASPIRIN 325 MG TAB PO STA (21:52)
[2022-12-31] MEDS: SODIUM CHLORIDE 0.9% 1,000 ML IV SCH (22:54)
[2023-01-01] MEDS: ASPIRIN 325 MG TAB PO SCH (08:05)
[2023-01-01] MEDS: SODIUM CHLORIDE 0.9% 1,000 ML IV SCH ×2 (08:07→22:58)
[2023-01-01 09:38] LABS: Chol/HDL Ratio 2.92 Ratio
--- NOTE | 2023-01-01 10:23 | P.HPIM ---
History of Present Illness H&P Date: 01/01/23 Chief Complaint: TIA This is a 67-year-old female patient of Dr. Bernal. Patient presented with concerns of left-sided weakness and blurred vision. Patient reports that symp toms have been listed for approximately 15 minutes. Patient called EMS for further assistance. Symptoms resolved. Patient has a past medical history of COPD, breast cancer, hyperlipidemia, hypertension, myocardial infarction, thyroid disorder, breast cancer diagnosed in 2020 and current every day smoker. Chest x-ray completed showing no acute cardiopulmonary disease. COPD changes. EKG completed showing right thalamus and posterior limb of the right internal carotid without lesions which areindeterminate for acute subacute CVA. CTA completed showing no evidence of dissection of the cervical internal carotid arteries or vertebral arteries are any evidence of significant stenosis of the carotid bifurcation. No evidence of intracranial high-grade stenosis or intracranial aneurysm. Patient is alert and oriented 3. No new neurological symptoms at this time symptoms have resolved. Neurology will consulted. 2-D echo ordered. Repeat labs ordered Review of Systems Please refer to HPI otherwise unremarkable Past Medical History Past Medical History: Coronary Artery Disease (CAD), Cancer, Hyperlipidemia, Hypertension, Myocardial Infarction (CA), Osteoarthritis (OA), Thyroid Disorder Additional Past Medical History / Comment(s): CA x3. rt Breast cancer dx 04/2021. Disintegrating joint syndrome, complex migraines - none in few years, environmental allergies. Hx Graves disease. Last Myocardial Infarction Date:: 4-18 History of Any Multi-Drug Resistant Organisms: None Reported Past Surgical History: Breast Surgery, Heart Catheterization, Heart Catheterization With Stent, Orthopedic Surgery Additional Past Surgical History / Comment(s): Cyst exc left breast; mult breast biopsies. ectopic surg. Bilat carpal tunnel surg. bilateral knee arthroscopy, Lt wrist ganglion cyst exc. Bilat Cataracts removed. one cardiac stent, rt mastectomy 07/03/21 Past Anesthesia/Blood Transfusion Reactions: Postoperative Nausea & Vomiting (PONV) Additional Past Anesthesia/Blood Transfusion Reaction / Comment(s): PONV after breast surgery 07/03/21 Date of Last Stent Placement:: 4-18 Past Psychological History: No Psychological Hx Reported Smoking Status: Current every day smoker Past Alcohol Use History: None Reported Past Drug Use History: None Reported - Past Family History Mother Family Medical History: Cancer Additional Family Medical History / Comment(s): LUNG Brother(s) Family Medical History: Cancer Additional Family Medical History / Comment(s): throat cancer Medications and Allergies Home Medications Medication Instructions Recorded Confirmed Type Aspirin 81 mg PO DAILY chew 10/16/17 12/31/22 Rx Isosorbide Mononitrate ER [Imdur] 30 mg PO DAILY #30 tab.er.24h 11/01/18 12/31/22 Rx Metoprolol Tartrate [Lopressor] 25 mg PO BID #60 tab 11/01/18 12/31/22 Rx Atorvastatin [Lipitor] 80 mg PO HS 05/25/20 12/31/22 History Meloxicam [Mobic] 7.5 mg PO BID PRN 05/25/20 12/31/22 History Levothyroxine Sodium [Synthroid] 25 mcg PO DAILY 06/20/21 12/31/22 History Cholecalciferol [Vitamin D3 (125 250 mcg PO DAILY 12/31/22 12/31/22 History Mcg = 5000 Iu)] Allergies Allergy/AdvReac Type Severity Reaction Status Date / Time adhesive tape Allergy raw skin Verified 12/31/22 23:07 bacitracin Allergy blisters Verified 12/31/22 23:07 [From Neosporin ([id number])] bacitracin zinc Allergy blisters Verified 12/31/22 23:07 [From Neosporin ([id number]-oih-[id number])] neomycin sulfate Allergy blisters Verified 12/31/22 23:07 [From Neosporin ([id number]-fka-cywex)] Penicillins Allergy Anaphylaxis Verified 12/31/22 23:07 polymyxin B Allergy blisters Verified 12/31/22 23:07 [From Neosporin ([id number])] Sulfa (Sulfonamide Allergy localized Verified 12/31/22 23:07 Antibiotics) eye swelling from drops tetanus immune globulin Allergy localized Verified 12/31/22 23:07 swelling ketorolac tromethamine AdvReac Nausea & Verified 12/31/22 23:07 [From Toradol] Vomiting cockroach AdvReac edema in Uncoded 12/31/22 23:07 eyes dust AdvReac edema in Uncoded 12/31/22 23:07 eyes Physical Exam Vitals: Vital Signs Temp Pulse Resp BP Pulse Ox FiO2 01/01/23 09:11 98 21 01/01/23 07:32 62 18 153/69 98 01/01/23 06:11 61 18 142/59 98 01/01/23 03:00 60 13 147/72 01/01/23 00:00 64 20 156/74 98 12/31/22 21:07 68 18 159/70 98 12/31/22 21:00 73 21 159/70 98 12/31/22 20:38 20 174/65 98 12/31/22 19:51 97.8 F 82 18 174/65 98 Intake and Output 12/31/22 01/01/23 01/01/23 22:59 06:59 14:59 Other: Weight 71.668 kg Head normocephalic Neck supple Lungs clear to auscultation bilaterally no wheezing or crackles Heart regular rate and rhythm S1-S2, no rub or gallop Abdomen is soft nontender nondistended positive bowel sounds no hepatosplenomegaly Extremities no edema Neuro alert and orientated to 3 Results CBC & Chem 7: 12/31/22 14:57 12/31/22 14:57 Labs: Abnormal Lab Results - Last 24 Hours (Table) 12/31/22 12/31/22 Range/Units 14:57 14:57 APTT 21.4 L (22.0-30.0) sec BUN 23 H (7-17) mg/dL Glucose 106 H (74-99) mg/dL Assessment and Plan Assessment: 1. Right-sided weakness secondary to TIA 2. History of breast cancer diagnosed in 2020 completed treatment 3. Nicotine dependence patient reports she smokes approximately 1 pack cigarettes per day patient educated greater than 3 minutes on smoking cessation 4. History of hypothyroidism 5. History of essential hypertension 8. History of coronary artery bypass Surgery with heart catheterization with stent placement At this time neurology service is consulted 2-D echo ordered Maintain on aspirin and Plavix Repeat labs ordered Time with Patient: Greater than 30 (Greater than 60% of the total time spent in counseling and coordination of care)
[2023-01-01] MEDS ORDERED: CLOPIDOGREL 75 MG TAB PO STA (16:09)
--- NOTE | 2023-01-01 19:36 | P.CNNES ---
History of Present Illness Consult date: 01/01/23 Requesting physician: Kavin Gonsalez Reason for Consult: TIA History of Present Illness: Patient is a 67-year-old right-handed female came to the hospital by ambulance yesterday at 7:49 PM for transient right-sided numbness. Patient states that yesterday at around 6:45 PM, she went to the bathroom. While she was coming b k, she developed numbness of right side of the body, including face arm and leg, including the trunk. She had no slurred speech or droopy face. 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 Likewise while walking, her right leg also felt rubbery. Patient called EMS. By the time EMS arrived, her symptoms started improving. Overall the symptoms lasted for about 5-10 minutes. At present all symptoms have resolved. EMS flow sheet not available in the chart. Vital signs arrival blood pressure 174/65, pulse 82 temperature 97.8. Blood test shows normal CBC, PTT PTT, normal CMP. Normal CK. EKG shows sinus rhythm, chest x-ray with no acute cardiopul monary disease. COPD changes. CT head revealed right thalamus and the posterior limb of right internal capsule hypodense lesion which are indeterminate for acute/subacute CVA. I personally reviewed CT head, agree with the findings. Paranasal sinuses are clear. Patient has history of hypertension, hyperlipidemia, denies diabetes. Patient has history of ID, and a cardiac stent, but no history of stroke. She has smoked half pack per day for last 35-40 years. Still smokes. Home medications include aspirin 81 mg for last 4-5 years (compliant), isosorbide 30 mg, met oprolol, meloxicam, Lipitor 80 mg, levothyroxine and vitamin D. Review of Systems Constitutional: Denies chills, Denies fever Eyes: denies blurred vision, denies diplopia, denies pain Ears: deny: decreased hearing, ear discharge Ears, nose, mouth and throat: Denies headache, Denies sore throat Cardiovascular: Denies chest pain, Denies shortness of breath Respiratory: Denies cough, Denies excessive sputum Gastrointestinal: Denies abdominal pain, Denies diarrhea, Denies nausea, Denies vomiting Genitourinary: Denies dysuria, Denies hematuria Integumentary: Denies pruritus, Denies rash Neurological: Reports as per HPI Psychiatric: Denies anxiety, Denies depression Endocrine: Denies palpitations, Denies weight change Hematologic/Lymphatic: Denies easy bleeding, Denies easy bruising Past Medical History Past Medical History: Coronary Artery Disease (CAD), Cancer, Hyperlipidemia, Hypertension, Myocardial Infarction (ID), Osteoarthritis (OA), Thyroid Disorder Additional Past Medical History / Comment(s): [place] x3. rt Breast cancer dx 04/2021. Disintegrating joint syndrome, complex migraines - none in few years, environmental allergies. Hx Graves disease. Last Myocardial Infarction Date:: 4 History of Any Multi-Drug Resistant Organisms: None Reported Past Surgical History: Breast Surgery, Heart Catheterization, Heart Catheterization With Stent, Orthopedic Surgery Additional Past Surgical History / Comment(s): Cyst exc left breast; mult breast biopsies. ectopic surg. Bilat carpal tunnel surg. bilateral knee arthroscopy, Lt wrist ganglion cyst exc. Bilat Cataracts removed. one cardiac stent, rt mastectomy 07/03/21 Past Anesthesia/Blood Transfusion Reactions: Postoperative Nausea & Vomiting (PONV) Additional Past Anesthesia/Blood Transfusion Reaction / Comment(s): PONV after breast surgery 07/03/21 Date of Last Stent Placement:: 4-18 Past Psychological History: No Psychological Hx Reported Smoking Status: Current every day smoker Past Alcohol Use History: None Reported Past Drug Use History: None Reported - Past Family History Mother Family Medical History: Cancer Additional Family Medical History / Comment(s): LUNG Brother(s) Family Medical History: Cancer Additional Family Medical History / Comment(s): throat cancer Medications and Allergies Home Medications Medication Instructions Recorded Confirmed Type Aspirin 81 mg PO DAILY chew 10/16/17 12/31/22 Rx Isosorbide Mononitrate ER [Imdur] 30 mg PO DAILY #30 tab.er.24h 11/01/18 12/31/22 Rx Metoprolol Tartrate [Lopressor] 25 mg PO BID #60 tab 11/01/18 12/31/22 Rx Atorvastatin [Lipitor] 80 mg PO HS 05/25/20 12/31/22 History Meloxicam [Mobic] 7.5 mg PO BID PRN 05/25/20 12/31/22 History Levothyroxine Sodium [Synthroid] 25 mcg PO DAILY 06/20/21 12/31/22 History Cholecalciferol [Vitamin D3 (125 250 mcg PO DAILY 12/31/22 12/31/22 History Mcg = 5000 Iu)] Allergies Allergy/AdvReac Type Severity Reaction Status Date / Time adhesive tape Allergy raw skin Verified 12/31/22 23:07 bacitracin Allergy blisters Verified 12/31/22 23:07 [From Neosporin ([id number])] bacitracin zinc Allergy blisters Verified 12/31/22 23:07 [From Neosporin (oci-aut-nbndc)] neomycin sulfate Allergy blisters Verified 12/31/22 23:07 [From Neosporin ([id number]-[id number])] Penicillins Allergy Anaphylaxis Verified 12/31/22 23:07 polymyxin B Allergy blisters Verified 12/31/22 23:07 [From Neosporin ([id number]-ujm-[id number])] Sulfa (Sulfonamide Allergy localized Verified 12/31/22 23:07 Antibiotics) eye swelling from drops tetanus immune globulin Allergy localized Verified 12/31/22 23:07 swelling ketorolac tromethamine AdvReac Nausea & Verified 12/31/22 23:07 [From Toradol] Vomiting cockroach AdvReac edema in Uncoded 12/31/22 23:07 eyes dust AdvReac edema in Uncoded 12/31/22 23:07 eyes Physical Examination - Vital Signs Vital Signs: Vital Signs Temp Pulse Resp BP Pulse Ox 01/01/23 07:32 62 18 153/69 98 01/01/23 06:11 61 18 142/59 98 01/01/23 03:00 60 13 147/72 01/01/23 00:00 64 20 156/74 98 12/31/22 21:07 68 18 159/70 98 12/31/22 21:00 73 21 159/70 98 12/31/22 20:38 20 174/65 98 12/31/22 19:51 97.8 F 82 18 174/65 98 Intake and Output 12/31/22 01/01/23 01/01/23 22:59 06:59 14:59 Other: Weight 71.668 kg Patient is an elderly female, in no acute distress. Patient is alert awake oriented to time place and person. Speech and language functions are normal. Patient can name and repeat very well. No aphasia or dysarthria. Attention, concentration and fund of knowledge is adequate. On cranial nerve examination, pupils are equal, round and reacting to light, visual gandhi are full on confrontation, with no neglect on double simultaneous stimulation. Extraocular muscles are intact with no nystagmus. Patient's face has very slight right facial asymmetry on active testing only. Her tongue protrudes to the midline. Palatal elevation and sensation normal, hearing and shoulder shrug normal, facial sensation normal. On muscle strength testing, there is no pronator drift and the strength is normal in arms and legs distally and proximally. Deep tendon reflexes are symmetric 1 all over and plantars downgoing. Sensory to touch is equal with no neglect on double simultaneous stimulation. Cerebellar function showed no ataxia for [id number]-vh-abmb testing. No dysdiadochokinesia. No ataxia for fxni-ju-xjqz testing on either side. Tone and bulk of muscles normal. Gait deferred.. On general examination, there is no carotid bruit or murmur, S1-S2 audible. Chest is clear on consultation. Abdomen is soft nontender. No organomegaly, bowel sounds present. Peripheral pulses are present. No edema. Results - Laboratory Findings CBC and BMP: 12/31/22 14:57 12/31/22 14:57 Abnormal Lab Findings: Abnormal Labs 12/31/22 12/31/22 14:57 14:57 APTT 21.4 L BUN 23 H Glucose 106 H Assessment and Plan Assessment: * TIA, manifesting with transient numbness of the entire right side of the body including face arm and leg, that lasted for about 5-10 minutes and then resolved. * Hypertension * Hyperlipidemia * CAD * Tobacco use Plan: * Patient has presented with TIA. She has failed aspirin. Patient will be started on Plavix 75 mg daily. Continue dual antiplatelet medication for 21 days, then stop aspirin and continue Plavix indefinitely. * 2-D echo rule out embolic source. * CTA of head and neck showed no evidence of dissection of the cervical internal carotid arteries or vertebral arteries or any evidence of significant stenosis at the carotid bifurcations. No evidence of intracranial high-grade stenosis or intracranial aneurysm. * Hemoglobin A1c 6.3 on 11/25/2022. No need to repeat. Recommend healthy lifestyles, and dietary adjustment. * Lipid panel with cholesterol 159, LDL 83, triglycerides 108 and HDL 54. Continue Lipitor 80 mg daily. * Telemetry monitoring. * Continue neuro checks. * Permissive hypertension for 24 hours. * Recommend complete tobacco cessation. * Neurology will follow. Thank you for the consult.
[2023-01-01] MEDS ORDERED: ATORVASTATIN 80 MG TAB PO SCH (21:00)
[2023-01-01] MEDS: METOPROLOL TARTRATE 25 MG TAB PO SCH (22:09)
[2023-01-02] MEDS ORDERED: LEVOTHYROXINE 25 MCG TAB PO SCH (06:30)
[2023-01-02] MEDS: SODIUM CHLORIDE 0.9% 1,000 ML IV SCH (06:39)
[2023-01-02 08:26] VITALS: RESP 14
[2023-01-02 08:32] LABS: Basophils # (A) 0.04 X 10*3/uL (0.00-0.10); Basophils % (A) 0.7 %; Eosinophils # (A) 0.34 X 10*3/uL (0.04-0.35); Eosinophils % (A) 5.7 %; HCT 41.1 % (37.2-46.3); HGB 13.4 d/dL (12.0-15.0); Lymphocytes # (A) 1.67 X 10*3/uL (0.90-5.00); Lymphocytes % (A) 27.9 %; MCHC 32.6 d/dL (32.0-37.0); MCV 95.1 FL (80.0-97.0); Mean Platelet Volume 9.1 FL (9.5-12.2); Monocytes # (A) 0.41 X 10*3/uL (0.20-1.00); Monocytes % (A) 6.9 %; NRBC Per 100 WBC 0 X 10*3/uL (0.00-0.01); Neutrophils # (A) 3.51 X 10*3/uL (1.80-7.70); Neutrophils % (A) 58.6 %; Platelet Count 213 X 10*3/uL (140-440); RBC 4.32 X 10*6/uL (4.10-5.20); RDW 13.7 % (11.5-14.5); WBC 5.98 X 10*3/uL (4.50-10.00)
[2023-01-02 08:51] LABS: ALT 21 U/L (8-44); AST 12 U/L (13-35); Alkaline Phosphatase 114 U/L (41-126); BUN/Creat Ratio 19.88 Ratio (12.00-20.00); Blood Urea Nitrogen 15.9 mg/dL (9.0-27.0); Calcium 9.9 mg/dL (8.7-10.3); Chloride 107 mmol/L (96-109); Globulin 2.1 d/dL (1.6-3.3); Glucose 87 mg/dL (70-110); Potassium 4.4 mmol/L (3.5-5.5); Sodium 142 mmol/L (135-145); Total Bilirubin 0.3 mg/dL (0.3-1.2); Total Protein 6.1 d/dL (6.2-8.2)
[2023-01-02] MEDS ORDERED: NICOTINE 14MG/24HR PATCH TRANSDERM SCH (09:00)
[2023-01-02] MEDS ORDERED: CLOPIDOGREL 75 MG TAB PO SCH (09:00)
[2023-01-02] MEDS ORDERED: CHOLECALCIFEROL 125 MCG (5000 IU) TABLET PO SCH (09:00)
[2023-01-02] MEDS ORDERED: ISOSORBIDE MONONITRATE ER 30 MG TAB.ER.24H PO SCH (09:00)
[2023-01-02] MEDS: METOPROLOL TARTRATE 25 MG TAB PO SCH (09:04)
[2023-01-02] MEDS: ASPIRIN 325 MG TAB PO SCH (09:04)
--- NOTE | 2023-01-02 11:35 | P.PN ---
Subjective Progress Note Date: 01/02/23 Patient was seen for a follow-up. Patient is laying comfortably in the bed. No new neurological symptoms. All symptoms resolved. Objective - Vital Signs Vital signs: Vital Signs Temp 97.8 F 01/02/23 07:00 Pulse 56 L 01/02/23 07:00 Resp 14 01/02/23 07:00 BP 134/72 01/02/23 07:00 Pulse Ox 98 01/02/23 09:46 FiO2 21 01/01/23 09:11 Intake & Output 01/01/23 01/02/23 01/02/23 18:59 06:59 18:59 Intake Total 296 Balance 296 Intake: Oral 296 Other: # Voids 1 1 - Exam Patient's mental status, speech and language functions are normal. Cranial nerves normal. Muscle strength normal. - Labs CBC & Chem 7: 01/02/23 05:49 01/02/23 05:49 Labs: Abnormal Lab Results - Last 24 Hours (Table) 01/02/23 01/02/23 Range/Units 05:49 05:49 MPV 9.1 L (9.5-12.2) FL AST 12 L (13-35) U/L Total Protein 6.1 L (6.2-8.2) d/dL Assessment and Plan Assessment: * TIA, manifesting with transient numbness of the entire right side of the body including face arm and leg, that lasted for about 5-10 minutes and then resolved. * Hypertension * Hyperlipidemia * CAD * Tobacco use Plan: * Patient has presented with TIA. She has failed aspirin. Patient will be started on Plavix 75 mg daily. Continue dual antiplatelet medication for 21 days, then stop aspirin and continue Plavix indefinitely. * 2-D echo completed, results pending. * CTA of head and neck showed no evidence of dissection of the cervical internal carotid arteries or vertebral arteries or any evidence of significant stenosis at the carotid bifurcations. No evidence of intracranial high-grade stenosis or intracranial aneurysm. * Hemoglobin A1c 6.3 on 11/25/2022. No need to repeat. Recommend healthy lifestyles, and dietary adjustment. * Lipid panel with cholesterol 159, LDL 83, triglycerides 108 and HDL 54. Continue Lipitor 80 mg daily. * Telemetry monitoring so far showing sinus bradycardia in the 50s. No other arrhythmias. * Optimize control of blood pressure to normotensive levels. * Recommend complete tobacco cessation. * Neurologically clear for discharge, if the 2-D echo report comes back normal. Addendum: 2-D echo revealed normal left ventricular systolic function with EF 55-60%. Moderately increased left ventricular wall thickness. Left atrium is mildly increased in volume. Mild to moderate MR.
--- NOTE | 2023-01-02 12:04 | CA ---
Transthoracic Echo Report Name: Candida Villa Age: 67 Gender: F : 1955 Exam Date: 01/02/2023 07:55 Exam Location: [facility] Ht (in): 67 Wt (lb): 158 Ordering Physician: Kavin Gonsalez DO Attending/Referring Phys: Tire And Tube Repairer Traci Salazar RDCS Procedure CPT: Indications: Thrombus Cardiac Hx: Technical Quality: Fair Contrast 1: Total Dose (mL): Contrast 2: Total Dose (mL): MEASUREMENTS (Male / Female) Normal Values 2D ECHO LV Diastolic Diameter PLAX 4.0 cm 4.2 - 5.9 / 3.9 - 5.3 cm LV Systolic Diameter PLAX 2.5 cm IVS Diastolic Thickness 1.5 cm 0.6 - 1.0 / 0.6 - 0.9 cm LVPW Diastolic Thickness 1.3 cm 0.6 - 1.0 / 0.6 - 0.9 cm LV Relative Wall Thickness 0.7 LA Volume 58.3 cm??? 18 - 58 / 22 - 52 cm??? M-MODE Aortic Root Diameter MM 2.9 cm LA Systolic Diameter MM 4.5 cm LA Ao Ratio MM 1.6 AV Cusp Separation MM 1.7 cm DOPPLER AV Peak Velocity 151.9 cm/s AV Peak Gradient 9.2 mmHg AV Mean Velocity 103.2 cm/s AV Mean Gradient 4.8 mmHg AV Velocity Time Integral 31.4 cm LVOT Peak Velocity 87.1 cm/s LVOT Peak Gradient 3.0 mmHg LVOT Velocity Time Integral 20.7 cm MV Area PHT 2.5 cm??? Mitral E Point Velocity 82.2 cm/s Mitral A Point Velocity 74.6 cm/s Mitral E to A Ratio 1.1 MV Deceleration Time 305.5 ms MV E' Velocity 4.8 cm/s Mitral E to MV E' Ratio 17.3 FINDINGS Left Ventricle Moderately increased left ventricular wall thickness. Normal left ventricular systolic function with no obvious regional wall motion abnormalities. Left ventricular cavity size normal. Left ventricular ejection fraction is estimated at 55-60 %. Normal left ventricular diastolic filling pattern. Right Ventricle Normal right ventricular size and function. Right ventricular systolic pressure within normal limits. Right Atrium Normal right atrial size. Left Atrium Mildly increased left atrial volume. Mitral Valve Structurally normal mitral valve. No mitral stenosis. [id number] mitral regurgitation. Aortic Valve Trileaflet aortic valve. No aortic valve stenosis or regurgitation. Tricuspid Valve Structurally normal tricuspid valve. Trace tricuspid regurgitation. Pulmonic Valve Trace pulmonic regurgitation. Pericardium No pericardial effusion. Aorta Normal size aortic root and proximal ascending aorta. CONCLUSIONS Normal LV function Mild to moderate mitral regurgitation Previewed by: Edinson Claros MD Dr. Suresh Tumma MD (Electronically Signed) Final Date: 02 January 2023 12:04
[2023-01-02 14:31] VITALS: BP 117/68; PULSE 60; TEMP 98
--- NOTE | 2023-01-02 17:13 | P.DS ---
Providers Date of admission: 12/31/22 21:52 Expected date of discharge: 01/02/23 Attending physician: Jannet Mcgregor Consults: 12/31/22 21:52 Consult Physician Urgent Consulting Provider: Nj Vazquez Consult Reason/Comments: tia Do you want consulting provider notified?: Yes Primary care physician: Kinza Bernal Hospital Course: Diagnosis on discharge: 1. Right-sided weakness secondary to TIA 2. History of breast cancer diagnosed in 2020 completed treatment 3. Nicotine dependence patient reports she smokes approximately 1 pack cigarettes per day patient educated greater than 3 minutes on smoking cessation 4. History of hypothyroidism 5. History of essential hypertension 6. History of coronary artery bypass Surgery with heart catheterization with stent placement 7. Underlying history of continued tobacco use. Patient was counseled in length during this admission in regard to smoking cessation. Hospital course: This is a 67-year-old female patient of Dr. Bernal. Patient presented with concerns of left-sided weakness and blurred vision. Patient reports that symptoms have been listed for approximately 15 minutes. Patient called EMS for further assistance. Symptoms resolved. Patient has a past medical history of COPD, breast cancer, hyperlipidemia, hypertension, myocardial infarction, thyroid disorder, breast cancer diagnosed in 2020 and current every day smoker. Chest x-ray completed showing no acute cardiopulmonary disease. COPD changes. EKG completed showing right thalamus and posterior limb of the right internal carotid without lesions which areindeterminate for acute subacute CVA. CTA completed showing no evidence of dissection of the cervical internal carotid a rteries or vertebral arteries are any evidence of significant stenosis of the carotid bifurcation. No evidence of intracranial high-grade stenosis or intracranial aneurysm. Patient is alert and oriented 3. No new neurological symptoms at this time symptoms have resolved. Neurology will consulted. 2-D echo ordered. Repeat labs ordered On 01/02/2023 patient was seen and examined on the medical floor she is alert and oriented 3 in no apparent distress there is no fever or chills no headache or dizziness no chest pain no shortness of breath no cough no nausea or vomiting no abdominal pain no diarrhea and no urinary symptoms. Right sided weakness has resolved. Patient was evaluated by neurology and was cleared for discharge. She should be maintained on Plavix and aspirin for 21 days, after that she should be on Plavix alone indefinitely. She was given a prescription for Plavix at this time. Patient is current every day smoker, she was counseled in length in regard to smoking cessation counseling more than 5 minutes today. She was given a prescription for NicoDerm patches the time of discharge. Plan - Discharge Summary Discharge Rx Participant: No New Discharge Prescriptions: New Aspirin 325 mg PO DAILY tab Nicotine 14Mg/24Hr Patch [Habitrol] 1 patch TRANSDERM DAILY patch Clopidogrel [Plavix] 75 mg PO DAILY tab Continue Isosorbide Mononitrate ER [Imdur] 30 mg PO DAILY #30 tab.er.24h Metoprolol Tartrate [Lopressor] 25 mg PO BID #60 tab Meloxicam [Mobic] 7.5 mg PO BID PRN PRN Reason: OA Pain Atorvastatin [Lipitor] 80 mg PO HS Cholecalciferol [Vitamin D3 (125 Mcg = 5000 Iu)] 250 mcg PO DAILY Levothyroxine Sodium [Synthroid] 25 mcg PO DAILY Discontinued Aspirin 81 mg PO DAILY chew Discharge Medication List Isosorbide Mononitrate ER [Imdur] 30 mg PO DAILY #30 tab.er.24h 11/01/18 [Rx] Metoprolol Tartrate [Lopressor] 25 mg PO BID #60 tab 11/01/18 [Rx] Atorvastatin [Lipitor] 80 mg PO HS 05/25/20 [History] Meloxicam [Mobic] 7.5 mg PO BID PRN 05/25/20 [History] Levothyroxine Sodium [Synthroid] 25 mcg PO DAILY 06/20/21 [History] Cholecalciferol [Vitamin D3 (125 Mcg = 5000 Iu)] 250 mcg PO DAILY 12/31/22 [History] Aspirin 325 mg PO DAILY tab 01/02/23 [Rx] Clopidogrel [Plavix] 75 mg PO DAILY tab 01/02/23 [Rx] Nicotine 14Mg/24Hr Patch [Habitrol] 1 patch TRANSDERM DAILY patch 01/02/23 [Rx] Follow up Appointment(s)/Referral(s): Kinza Bernal MD [Primary Care Provider] - 1-2 days Patient Instructions/Handouts: Transient Ischemic Attack (DC) Discharge Disposition: HOME SELF-CARE
== END 2023-01-02 14:43 | disposition home or self-care (01) ==
LOC: EC 19:49 → 6NMEDSUR 21:52
PROVIDERS: ADMIT Internal Medicine; ATTEND Internal Medicine
DX: G45.9 Transient cerebral ischemic attack, unspecified (principal); I25.10 Atherosclerotic heart disease of native coronary artery without angina pectoris; E78.5 Hyperlipidemia, unspecified; I25.2 Old myocardial infarction; I10 Essential (primary) hypertension; E03.9 Hypothyroidism, unspecified; J44.9 Chronic obstructive pulmonary disease, unspecified; E05.00 Thyrotoxicosis with diffuse goiter without thyrotoxic crisis or storm; I08.1 Rheumatic disorders of both mitral and tricuspid valves; I67.2 Cerebral atherosclerosis; I37.1 Nonrheumatic pulmonary valve insufficiency; R00.1 Bradycardia, unspecified; F17.210 Nicotine dependence, cigarettes, uncomplicated; Z95.5 Presence of coronary angioplasty implant and graft; Z98.42 Cataract extraction status, left eye; Z79.899 Other long term (current) drug therapy; Z79.1 Long term (current) use of non-steroidal anti-inflammatories (NSAID); Z79.890 Hormone replacement therapy; Z79.82 Long term (current) use of aspirin; Z88.0 Allergy status to penicillin; Z88.8 Allergy status to other drugs, medicaments and biological substances; Z98.41 Cataract extraction status, right eye; Z90.11 Acquired absence of right breast and nipple; Z80.8 Family history of malignant neoplasm of other organs or systems; Z80.1 Family history of malignant neoplasm of trachea, bronchus and lung; Z88.2 Allergy status to sulfonamides; Z85.3 Personal history of malignant neoplasm of breast; Z95.1 Presence of aortocoronary bypass graft
CPT/HCPCS: 96361 ×2; 96360; 99285; 36415; 94760; 93005; 93306; 97161; 97165; 80061; 80053 ×2; 82550; 85025 ×2; 85610; 85730; 71046; 70496; 70450; 70498; G0378 ×3; S4990; Q9967

== ENCOUNTER → 2023-06-18 | Outpatient (CLI) | payer MEDICARE, OTHER ==
[2023-06-18 15:03] LABS: Blood Urea Nitrogen 16.3 mg/dL (9.0-27.0); Chol/HDL Ratio 3.09 Ratio; Glucose 105 mg/dL (70-110)
[2023-06-18 15:04] LABS: ALT 19 U/L (8-44); AST 13 U/L (13-35); Albumin 4.2 g/dL (3.8-4.9); Albumin/Globulin Ratio 1.83 Ratio (1.60-3.17); Alkaline Phosphatase 133 U/L (41-126); Calcium 9.7 mg/dL (8.7-10.3); Carbon Dioxide 26.6 mmol/L (21.6-31.8); Chloride 107 mmol/L (96-109); Globulin 2.3 g/dL (1.6-3.3); LDL Cholesterol,Calculated 74.3 mg/dL (0.0-131.0); Sodium 144 mmol/L (135-145); Total Bilirubin 0.3 mg/dL (0.3-1.2); Total Protein 6.5 g/dL (6.2-8.2)
== END | disposition home or self-care (01) ==
LOC: LABWHC1 07:22
PROVIDERS: ATTEND Internal Medicine Interventional Cardiology
DX: E78.2 Mixed hyperlipidemia (principal)
CPT/HCPCS: 36415; 80053; 80061

== ENCOUNTER → 2023-07-30 | Outpatient (CLI) | payer MEDICARE, OTHER ==
--- NOTE | 2023-07-30 14:16 | MM ---
Reason for Exam: Hx of breast cancer, conservation therapy. Last mammogram was performed 1 year(s) and 2 month(s) ago. Patient History: Menarche at age 9. First Full-Term at age 21. Postmenopausal. Breast cancer, right, age 65. Previous chest radiation therapy at age 66. Previous chemotherapy at age 66. 07/03/2021, Mastectomy on the Right side. Core Biopsy on the Right side. Core Biopsy on the Left side. 05/25/2021, Malignant Core Biopsy on the right side. 03/26/2001, Benign Stereotactic Core Biopsy on the right side. 03/26/2001, Benign Stereotactic Core Biopsy on the left side. 05/09/2022, Radiation Therapy on the right side. Prior Study Comparison: 04/24/2021 Bilateral Diagnostic Mammogram, [facility]. 05/25/2021 Right Diagnostic Mammogram, [facility]. 06/03/2022 Left MG 3D diag mammo w/cad , [facility]. Tissue Density: Left: There are scattered fibroglandular densities. Findings: Analyzed By CAD. Left breast biopsy clip. There is no suspicious group of microcalcifications or new suspicious mass. Benign-appearing calcifications left breast. No new suspicious masses, calcifications or distortions. Overall Assessment: Benign, BI-RAD 2 Management: Screening Mammogram of the left breast in 1 year. Results were given to the patient verbally at the time of exam. Patient should continue monthly self-breast exams. A clinical breast exam by your physician is recommended on an annual basis. This exam should not preclude additional follow-up of suspicious palpable abnormalities. Note on Susy scores and lifetime risk: 1. A Susy score greater than 3% is considered moderate risk. If this is the case, consider specialist referral to assess eligibility for a risk reducing agent. 2. If overall lifetime risk for the development of breast cancer is 20% or higher, the patient may qualify for future screening with alternating mammogram and breast MRI. Electronically signed and approved by: Allen Hough DO
== END | disposition home or self-care (01) ==
LOC: RADMAMWWP 13:47
PROVIDERS: ATTEND Surgery
DX: R92.322 Mammographic fibroglandular density, left breast (principal); Z85.3 Personal history of malignant neoplasm of breast; Z78.0 Asymptomatic menopausal state; Z90.11 Acquired absence of right breast and nipple
CPT/HCPCS: 77065; G0279; 77061

== ENCOUNTER → 2023-08-14 | Outpatient (CLI) | payer MEDICARE, OTHER ==
[2023-08-14 13:47] VITALS: BP 146/71; PULSE 86; RESP 17
--- NOTE | 2023-08-14 13:47 | P.PN ---
Subjective Progress Note Date: 08/14/23 Principal diagnosis: Stage IIIA invasive ductal right breast cancer 2021 ([id number]-, Pr-, HEr2 -) Candida is a 68-year-old white female who underwent a bilateral mammogram on . This revealed a lesion of concern in the upper outer quadrant of the right breast. She subsequently underwent an ultrasound of the area which revealed a 0.8 x 2.3 cm oval irregular solid tolerated white lesion at 10:00. She was able to feel the lesion in her breast for 2 months. It had not changed in size. It was not painful. She did not feel any lumps masses or nodules of concern in the left breast. She was not complaining of any nipple discharge. She'd not had any recent trauma or infection in the breast. She did have an open biopsy of the left breast in the remote past which was benign. A core biopsy was done on 05-25-21 which was positive for an invasive ductal cancer G3. She underwent a right breast mastectomy and SNB with subpectoral implant reconstruction on 07-03-21. One of 2 sentinel lymph nodes was positive for micrometastatic cancer. She developed a seroma after the surgery requiring removal of the implant on 09-06-21. At this time she has no complaints related to any lumps masses or nodules in the left breast. The right chest wall is well-healed. left breast mammogram 07-30-23 [facility] [address] Gautam 07-01-23 reviewed completed 4 cycles of adjuvant [id number]; completed 4 cycles of Taxol on 04-17-22 radiation therapy: right chest wall and lymph nodes completing on 06-03-22 At this time she is not complaining of any new lumps masses or nodules of concern on her right chest wall or in her left breast. She had a TIA approximately 2 months ago. No smoking but is trying to stop. Caffeine: 1 cup coffee/day nicotine: 5 cigarettes per day Chocolate: rare Hormonal history: Menarche: 9 M1 1 terminated secondary to hyperthyroid breast fed: no, age at first : 21 menopause: 36 BCP: 2 years hormones: none Surgical History: carpal tunnel Ganglion cyst removal Bilateral knee cataract tubaligation right mastectomy and SNB 2021 Medical history: spinal arthritis DJD thyroid ablation radioactive iodine HTN high cholesterol Myocardial infarction 2; last one 2018 TIA Social History: Nicotine: 5 cigarettes per day, smoked since 26 alcohol: none drugs: none - Constitutional Constitutional: Denies chills, Denies fever - EENT Eyes: denies blurred vision, denies pain Ears: deny: decreased hearing, tinnitus Ears, nose, mouth and throat: Denies headache, Denies sore throat - Breasts Breasts: bilateral: as per HPI - Cardiovascular Cardiovascular: Denies chest pain, Denies shortness of breath - Respiratory Respiratory: Denies cough, Denies 7 - Gastrointestinal Gastrointestinal: Denies abdominal pain, Denies diarrhea, Denies nausea, Denies vomiting - Genitourinary (Female) Genitourinary: Reports kidney stones, Denies dysuria, Denies hematuria - Menstruation Menstruation: Reports postmenopausal - Musculoskeletal Musculoskeletal: Reports as per HPI - Integumentary Integumentary: Denies pruritus, Denies rash - Neurological Neurological: Denies numbness, Denies weakness - Psychiatric Psychiatric: Denies anxiety, Denies depression - Endocrine Endocrine: Denies fatigue, Denies weight change - Hematologic/Lymphatic Comment: aspirin - Allergic/Immunologic Allergic/Immunologic: Reports seasonal allergies Objective - Vital Signs Vital signs: Vital Signs Temp Pulse 86 08/14/23 13:24 Resp 17 08/14/23 13:24 BP 146/71 08/14/23 13:24 Pulse Ox 97 08/14/23 13:24 FiO2 Intake & Output 08/13/23 08/14/23 08/14/23 18:59 06:59 18:59 Weight 74.843 kg - Constitutional General appearance: Present: cooperative - EENT Eyes: Present: EOMI ENT: Present: hearing grossly normal - Neck Neck: Present: normal ROM - Respiratory Respiratory: bilateral: CTA - Cardiovascular Heart sounds: normal: S1, S2 - Integumentary Integumentary: Present: normal turgor - Musculoskeletal Musculoskeletal: Present: gait normal - Psychiatric Psychiatric: Present: A&O x's 3, appropriate affect, intact judgment & insight - Additional findings Additional findings: Breast Exam: BRA; 44C inspection: Right chest wall incision clean and dry, left breast grade 2 ptosis Palpation: Right chest wall: Multiple positional exam no evidence of recurrent cancer Right axilla: No adenopathy of concern Left breast: Multi-positional exam fibrocystic changes no dominant masses or nodules of concern Left axilla: No adenopathy of concern Assessment and Plan Assessment: Impression: Right breast invasive ductal carcinoma triple negative, T2 and [place] M0 triple negative grade 3, patient status post mastectomy and sentinel node biopsy, patient had subpectoral implant reconstruction and developed a seroma posterior to the implant requiring implant removal. completed adjuvant chemotherapy and radiation therapy Plan: Follow-up radiation oncology Follow-up medical oncology Follow-up here in 6 months left breast mammogram in 1 year CC: Dr. Bernal
== END ==
LOC: WWCWWP 12:57
PROVIDERS: ATTEND Surgery
DX: N60.12 Diffuse cystic mastopathy of left breast (principal); F17.210 Nicotine dependence, cigarettes, uncomplicated; I10 Essential (primary) hypertension; E78.00 Pure hypercholesterolemia, unspecified; I25.2 Old myocardial infarction; Z86.73 Personal history of transient ischemic attack (TIA), and cerebral infarction without residual deficits; Z90.11 Acquired absence of right breast and nipple; Z91.09 Other allergy status, other than to drugs and biological substances; Z88.2 Allergy status to sulfonamides; Z88.0 Allergy status to penicillin; Z88.1 Allergy status to other antibiotic agents; Z91.048 Other nonmedicinal substance allergy status; Z88.7 Allergy status to serum and vaccine

== ENCOUNTER → 2024-03-26 | Outpatient (CLI) | payer MEDICARE, OTHER ==
[2024-03-26 08:53] VITALS: BP 160/78; PULSE 73; RESP 16; TEMP 98.2
--- NOTE | 2024-03-26 08:58 | P.PN ---
Subjective Progress Note Date: 03/26/24 Principal diagnosis: Stage IIIA invasive ductal right breast cancer 2021 ([id number]-, Pr-, HEr2 -) 03-26-24 Principal diagnosis: Stage IIIA invasive ductal right breast cancer 2021 ([id number]-, Pr-, HEr2 -) Candida is a 68-year-old white female who underwent a bilateral mammogram on . This revealed a lesion of concern in the upper outer quadrant of the right breast. She subsequently underwent an ultrasound of the area which revealed a 0.8 x 2.3 cm oval irregular solid tolerated white lesion at 10:00. She was able to feel the lesion in her breast for 2 months. It had not changed in size. It was not painful. She did not feel any lumps masses or nodules of concern in the left breast. She was not complaining of any nipple discharge. She'd not had any recent trauma or infection in the breast. She did have an open biopsy of the left breast in the remote past which was benign. A core biopsy was done on 05-25-21 which was positive for an invasive ductal cancer G3. She underwent a right breast mastectomy and SNB with subpectoral im plant reconstruction on 07-03-21. One of 2 sentinel lymph nodes was positive for micrometastatic cancer. She developed a seroma after the surgery requiring removal of the implant on 09-06-21. At this time she has no complaints related to any lumps masses or nodules in the left breast. The right chest wall is well-healed. left breast mammogram 07-30-23 [facility] 2 personally reviewed on 08-14-[address] Gautam 07-01-23 reviewed on visit of 08-14-23 completed 4 cycles of adjuvant [id number]; completed 4 cycles of Taxol on 04-17-22 radiation therapy: right chest wall and lymph nodes completing on 06-03-22 At this time she is not complaining of any new lumps masses or nodules of concern on her right chest wall or in her left breast. She had a TIA approximately 2 months ago. Now smoking but is trying to stop. Caffeine: 1 cup coffee/day nicotine: 10 cigarettes per day, trying to stop she has been smoking since 23 for 40 years, we have discussed lung screening and she declined Chocolate: rare Hormonal history: Menarche: 9 M1 1 terminated secondary to hyperthyroid breast fed: no, age at first : 21 menopause: 36 BCP: 2 years hormones: none Surgical History: carpal tunnel Ganglion cyst removal Bilateral knee cataract tubaligation right mastectomy and SNB 2021 Medical history: spinal arthritis DJD thyroid ablation radioactive iodine HTN high cholesterol Myocardial infarction 2; last one 2018 TIA Social History: Nicotine: 5 cigarettes per day, smoked since 26 alcohol: none drugs: none - Constitutional Constitutional: Denies chills, Denies fever - EENT Eyes: denies blurred vision, denies pain Ears: deny: decreased hearing, tinnitus Ears, nose, mouth and throat: Denies headache, Denies sore throat - Breasts Breasts: bilateral: as per HPI - Cardiovascular Cardiovascular: Denies chest pain, Denies shortness of breath - Respiratory Respiratory: Denies cough - Gastrointestinal Gastrointestinal: Denies abdominal pain, Denies diarrhea, Denies nausea, Denies vomiting - Genitourinary (Female) Genitourinary: Reports kidney stones, Denies dysuria, Denies hematuria - Menstruation Menstruation: Reports postmenopausal - Musculoskeletal Musculoskeletal: Reports as per HPI - Integumentary Integumentary: Denies pruritus, Denies rash - Neurological Neurological: Denies numbness, Denies weakness - Psychiatric Psychiatric: Denies anxiety, Denies depression - Endocrine Endocrine: Denies fatigue, Denies weight change - Hematologic/Lymphatic Comment: aspirin - Allergic/Immunologic Allergic/Immunologic: Reports seasonal allergies Objective - Vital Signs Vital signs: Intake & Output 03/25/24 03/26/24 03/26/24 18:59 06:59 18:59 Weight 81.647 kg - Constitutional General appearance: Present: cooperative - EENT Eyes: Present: EOMI ENT: Present: hearing grossly normal - Neck Neck: Present: normal ROM - Respiratory Respiratory: bilateral: CTA - Cardiovascular Rhythm: regular Heart sounds: normal: S1, S2 - Integumentary Integumentary: Present: normal turgor - Musculoskeletal Musculoskeletal: Present: gait normal - Psychiatric Psychiatric: Present: A&O x's 3, appropriate affect, intact judgment & insight - Additional findings Additional findings: Breast Exam: BRA; 44C inspection: Right chest wall incision clean and dry, left breast grade 2 ptosis Palpation: Right chest wall: Multi positional exam no evidence of recurrent cancer Right axilla: No adenopathy of concern Left breast: Multi-positional exam fibrocystic changes no dominant masses or nodules of concern Left axilla: No adenopathy of concern Assessment and Plan Assessment: Impression: Right breast invasive ductal carcinoma triple negative, T2 and [place] M0 triple negative grade 3, patient status post mastectomy and sentinel node biopsy, patient had subpectoral implant reconstruction and developed a seroma posterior to the implant requiring implant removal. completed adjuvant chemotherapy and radiation therapy No evidence of any recurrent cancer Plan: Follow-up radiation oncology Follow-up medical oncology Follow-up here in 6 months left breast mammogram in 6 months lung cancer screening follow up after this is done CC: Dr. Bernal
== END ==
LOC: WWCWWP 08:25
PROVIDERS: ATTEND Surgery
DX: Z85.3 Personal history of malignant neoplasm of breast